=== PATIENT | male | born 1965 | race Caucasian/White ===

== ENCOUNTER 2016-03-27 12:46 | Inpatient (IN) | payer OTHER ==
[~2016-03-27] VITALS: Ht 185.4 cm; Wt 198.0 kg
[2016-03-27 16:34] VITALS: BP 102/60; PULSE 116; RESP 20
[2016-03-27] MEDS ORDERED: NACL 0.9% 3 ML SYG IV SCH (17:30)
[2016-03-27] MEDS ORDERED: DOCUSATE SODIUM 100 MG CAP PO PRN (17:30)
[2016-03-27] MEDS ORDERED: VANCOMYCIN IV PER PHARMACY XX SCH (17:30)
[2016-03-27] MEDS ORDERED: ONDANSETRON 4 MG INJ IV PRN (17:30)
[2016-03-27] MEDS ORDERED: ACETAMINOPHEN 325 MG TAB PO PRN (17:30)
[2016-03-27 18:03] VITALS: Ht 185.4 cm; Wt 198.0 kg
[2016-03-27] MEDS: morphine 2 MG INJ IV PRN ×2 (18:37→21:48)
[2016-03-27 20:10] VITALS: BP 91/50; RESP 18
[2016-03-27] MEDS: VANCOMYCIN 1.5 GM in SOD CHLORIDE 0.9% 250 ML IVPB SCH (21:47)
--- NOTE | 2016-03-27 23:09 | HP ---
DATE OF ADMISSION: 03/27/2016 CHIEF COMPLAINT: Left scrotal pain. HISTORY OF PRESENT ILLNESS: The patient is a 50-year-old male with history of morbid obesity, histo ry of recent buttock cellulitis status post IV antibiotics. The patient presents with left scrotal pain. He had presented to [facility], was transferred for insurance purposes. At [facility]', patient was noted to have elevated white count and did complain of left scrotal pain, which he continues to complain of right now. He denies any other medical history except for his morbid obes ity. He has no other complaints at this time. PAST MEDICAL HISTORY: Morbid obesity and history of buttock cellulitis recently in February 2016. PAST SURGICAL HISTORY: Denies. HOME MEDICATIONS: 1. Water pill. 2. Vitamins for his kidneys. ALLERGIES: NO KNOWN DRUG ALLERGIES. FAMILY HISTORY: Diabetes in his father. SOCIAL HISTORY: Denies any alcohol, tobacco, or drug abuse. REVIEW OF SYSTEMS: A 12-point review of systems negative except that as in HPI. PHYSICAL EXAMINATION: VITAL SIGNS: Temperature is 98.3, pulse 116, respiratory rate 20, blood pressure 102/60, saturation 94% on room air. GENERAL: No acute distress, alert, and oriented. HEENT: Normocephalic, atraumatic. LUNGS: Clear to auscultation. CARDIOVASCULAR: Regular rate and rhythm. ABDOMEN: Nondistended, nontender, soft, obese. EXTREMITIES: No clubbing, cyanosis, or edema. GENITOURINARY: Left scrotal tenderness to palpation. Some mild erythema, swelling. LABORATORIES: From [facility]: White count 16.4, hemoglobin 11.9, platelets are 260. Christine ashley: Sodium is 135, potassium is 5.4, chloride 97, CO2 is 20, BUN is 31, creatinine 1.76, glucos e 152. ASSESSMENT AND PLAN: 1. Left scrotal cellulitis with leukocytosis. Will treat with vancomycin IV. 2. Morbid obesity. Advised lifestyle changes. 3. Sepsis secondary to cellulitis, treated with vancomycin IV. The patient meets sepsis criteria w ith tachycardia with a pulse of 116 and leukocytosis. Once again, will treat with vancomycin IV. 4. Hyperglycemia. Will check A1c. 5. Prophylaxis: Sequential compression devices. Dictated By: SANJAY MEZA MD BS/NTS Conf#: [id number] [facility]#: [id number]
[2016-03-28] MEDS: morphine 2 MG INJ IV PRN ×7 (00:55→21:58)
[2016-03-28 06:22] LABS: BASOPHILS % 0.3 % (0.0-2.0); EOSINOPHILS # 0.2 10^3/ul (0.0-0.5); EOSINOPHILS % 1.4 % (0.0-7.0); HEMATOCRIT 33.9 % (42.0-52.0); HEMOGLOBIN 11.2 g/dl (14.0-18.0); LYMPHOCYTES # 1.2 10^3/ul (0.8-2.9); LYMPHOCYTES % 8.4 % (15.0-51.0); MEAN CORPUSCULAR HEMOGLOBIN 29.6 pg (29.0-33.0); MEAN CORPUSCULAR HGB CONC 32.9 g/dl (32.0-37.0); MEAN PLATELET VOLUME 8.3 fl (7.4-10.4); MONOCYTE # 1.4 10^3/ul (0.3-0.9); MONOCYTES % 9.4 % (0.0-11.0); NEUTROPHIL # 11.8 10^3/ul (1.6-7.5); NEUTROPHILS % 80.5 % (39.0-77.0); PLATELET COUNT 252 10^3/UL (140-440); RED BLOOD COUNT 3.77 10^6/ul (4.70-6.10); RED CELL DISTRIBUTION WIDTH 16.3 % (11.5-14.5); UNCORRECTED WBC 14.7 10^3/ul (4.8-10.8); WHITE BLOOD COUNT 14.7 10^3/ul (4.8-10.8)
[2016-03-28 06:38] LABS: CONDITION 1; LH ANALYZER COMMENTS 1
[2016-03-28 07:45] LABS: POTASSIUM 5.1 mmol/L (3.5-5.1)
[2016-03-28 07:47] LABS: CREATININE 2.04 mg/dl (0.61-1.24)
[2016-03-28 07:48] LABS: CALCIUM 8.4 mg/dl (8.4-10.2); PHOSPHORUS 4.5 mg/dl (2.5-4.9)
[2016-03-28 07:49] LABS: CHOL/HDL RATIO 4.5 RATIO; MAGNESIUM 1.7 mg/dl (1.7-2.5)
[2016-03-28 08:05] VITALS: BP 101/68; RESP 20
[2016-03-28 08:23] LABS: T3 UPTAKE 42.7 % (23.5-40.5)
[2016-03-28] MEDS ORDERED: INFLUENZA VIRUS VACCINE 0.5 ML SYG IM* ONE (09:00)
[2016-03-28] MEDS: VANCOMYCIN 1.5 GM in SOD CHLORIDE 0.9% 250 ML IVPB SCH (10:09)
--- NOTE | 2016-03-28 12:02 | CONS ---
Date/Time of Note Date/Time of Note DATE: 03/28/16 TIME: 11:59 Assessment/Plan Assessment/Plan Additional Assessment/Plan 50 yo Male with 1. Left scrotal cellulitis with leukocytosis. 2. Morbid obesity. 3. Sepsis secondary to cellulitis 4. Hyperglycemia. 5. MERISSA vs CKD Consultation Date/Type/Reason Admit Date/Time Mar 27, 2016 at 16:17 Date of Consultation: Mar 28, 2016 Type of Consultation: Nephrology Reason for Consultation MERISSA Referring Provider: SANJAY MEZA of Present Illness 50-year-old male with history of morbid obesity, history of recent buttock cellulitis status post IV antibiotics. The patient presents with left scrotal pain and found to have cellulitis. Patient was transferred from [facility] to [facility] and is under care of Hospitalist. He denies any other medical history except for his morbid obesity. He has no other complaints at this time. Nephrology consulted for Elevated BUN/Cr, MERISSA. Social History Smoking Status: Never smoker Exam/Review of Systems Vital Signs Vitals Vital Signs Date Time Temp Pulse Resp B/P Pulse Ox O2 Delivery O2 Flow Rate FiO2 03/28/16 08:05 98.5 114 20 101/68 94 03/27/16 16:34 Room Air Intake and Output 03/27/16 03/27/16 03/28/16 15:00 23:00 07:00 Intake Total 1310 ml Balance 1310 ml Results Result Diagram: 03/28/16 0449 03/28/16 0449 Results 24 hrs Laboratory Tests Test 03/28/16 04:49 Anion Gap 19 H Basophils # 0.0 Basophils % 0.3 Blood Morphology Comment Blood Urea Nitrogen 34 H Calcium Level 8.4 Carbon Dioxide Level 21 Chloride Level 103 Cholesterol Level 135 Cholesterol/HDL Ratio 4.5 Creatinine 2.04 H Eosinophils # 0.2 Eosinophils % 1.4 Free Thyroxine Index 2.22 Glucose Level 111 HDL Cholesterol 30 Hematocrit 33.9 L Hemoglobin 11.2 L Hemoglobin A1c 6.4 H LDL Cholesterol, Calculated 92 Lymphocytes # 1.2 Lymphocytes % 8.4 L Magnesium Level 1.7 Mean Corpuscular Hemoglobin 29.6 Mean Corpuscular Hemoglobin Concent 32.9 Mean Corpuscular Volume 90.0 Mean Platelet Volume 8.3 Monocytes # 1.4 H Monocytes % 9.4 Neutrophils # 11.8 H Neutrophils % 80.5 H Nucleated Red Blood Cells # 0.0 Nucleated Red Blood Cells % 0.0 Phosphorus Level 4.5 Platelet Count 252 Potassium Level 5.1 Red Blood Count 3.77 L Red Cell Distribution Width 16.3 H Sodium Level 138 Thyroxine (T4) 5.2 L Triglycerides Level 65 Triiodothyronine (T3) Uptake 42.7 H White Blood Count 14.7 H Medications Medications Current Medications Ondansetron HCl (Zofran Inj) 4 mg Q6H PRN IV NAUSEA AND/OR VOMITING; Start at 17:30 Acetaminophen (Tylenol Tab) 650 mg Q6H PRN PO PAIN LEVEL 1-3 OR FEVER; Start at 17:30 Acetaminophen/ Hydrocodone Bitart ([place] (5/325)) 1 tab Q6H PRN PO MODERATE PAIN LEVEL 4-6; Start 03/27/16 at 17:30 Morphine Sulfate (morphine) 4 mg Q3 PRN IV SEVERE PAIN LEVEL 7-10 Last administered on 03/28/16 11:54; Admin Dose 4 MG; Start 03/27/16 at 17:30 Docusate Sodium 100 mg 100 mg Q12H PRN PO CONSTIPATION; Start 03/27/16 at 17:30 Vancomycin HCl 1.5 gm/Sodium Chloride 250 ml @ 83.333 mls/ hr Q12H IVPB Last administered on 03/28/16 10:09; Admin Dose 83.333 MLS/HR; Start 03/27/16 at 22: 00 Sodium Chloride (1/2 NS) 1,000 ml @ 100 mls/hr Q10H IV ; Start 03/28/16 at 10: 30 Miscellaneous Information (*Rx Drug Level Order Reminder*) VANCO TROUGH @ 2, 100 ON... ONCE ONCE XX ; Start 03/28/16 at 21:00; Stop 03/28/16 at 21:01 RAISA COSBY MD Mar 28, 2016 12:02
[2016-03-28 14:24] LABS: ADD UMIC YES; URINE BILIRUBIN (Dip) NEGATIVE (NEGATIVE); URINE BLOOD (Dip) NEGATIVE (NEGATIVE); URINE COLOR LT. YELLOW (YELLOW); URINE GLUCOSE (Dip) NEGATIVE (NEGATIVE); URINE KETONES (Dip) NEGATIVE (NEGATIVE); URINE LEUKOCYTE ESTERASE (Dip) NEGATIVE (NEGATIVE); URINE NITRITE (Dip) NEGATIVE (NEGATIVE); URINE TOTAL PROTEIN (Dip) 1+ (NEGATIVE); URINE UROBILINOGEN (Dip) 0.2 E.U./dL (0.1-1.0)
[2016-03-28 14:46] LABS: BACTERIA,URINE FEW; URINE RBCS NONE SEEN /HPF (0)
[2016-03-28] MEDS: SOD CHLORIDE 0.45% 1,000 ML IV SCH ×2 (15:31→20:30)
--- NOTE | 2016-03-28 16:06 | PN ---
Date/Time of Note Date/Time of Note DATE: 03/28/16 TIME: 16:03 Assessment/Plan VTE Prophylaxis VTE Prophylaxis Intervention: SCD's Lines/Catheters [facility] [place] Urinary Cath still in place: No Assessment/Plan Chief Complaint/Hosp Course 1. Left scrotal cellulitis with leukocytosis -Will treat with vancomycin IV -ID consult with Dr. Jimenez 2. Morbid obesity. Advise lifestyle changes. 3. Sepsis secondary to #1 -Continue Vancomycin IV. 4. Hyperglycemia-resolved -A1c is 6.4 5. Prophylaxis: Sequential compression devices. Problems: Subjective 24 Hr Interval Summary Genitourinary: other (scrotal pain ) Exam/Review of Systems Vital Signs Vitals Vital Signs Date Time Temp Pulse Resp B/P Pulse Ox O2 Delivery O2 Flow Rate FiO2 03/28/16 08:05 98.5 114 20 101/68 94 03/27/16 16:34 Room Air Intake and Output 03/27/16 03/27/16 03/28/16 15:00 23:00 07:00 Intake Total 1310 ml Balance 1310 ml Exam Constitutional: alert, oriented Respiratory: clear to auscultation Cardiovascular: regular rate and rhythm Gastrointestinal: soft, No distended Musculoskeletal: nl extremities to inspection Results Result Diagram: 03/28/16 0449 03/28/169 Results 24 hrs Laboratory Tests Test 03/28/16 04:49 03/28/16 13:05 Anion Gap 19 H Basophils # 0.0 Basophils % 0.3 Blood Morphology Comment Blood Urea Nitrogen 34 H Calcium Level 8.4 Carbon Dioxide Level 21 Chloride Level 103 Cholesterol Level 135 Cholesterol/HDL Ratio 4.5 Creatinine 2.04 H Eosinophils # 0.2 Eosinophils % 1.4 Free Thyroxine Index 2.22 Glucose Level 111 HDL Cholesterol 30 Hematocrit 33.9 L Hemoglobin 11.2 L Hemoglobin A1c 6.4 H LDL Cholesterol, Calculated 92 Lymphocytes # 1.2 Lymphocytes % 8.4 L Magnesium Level 1.7 Mean Corpuscular Hemoglobin 29.6 Mean Corpuscular Hemoglobin Concent 32.9 Mean Corpuscular Volume 90.0 Mean Platelet Volume 8.3 Monocytes # 1.4 H Monocytes % 9.4 Neutrophils # 11.8 H Neutrophils % 80.5 H Nucleated Red Blood Cells # 0.0 Nucleated Red Blood Cells % 0.0 Phosphorus Level 4.5 Platelet Count 252 Potassium Level 5.1 Red Blood Count 3.77 L Red Cell Distribution Width 16.3 H Sodium Level 138 Thyroxine (T4) 5.2 L Triglycerides Level 65 Triiodothyronine (T3) Uptake 42.7 H White Blood Count 14.7 H Urine Amorphous Urates FEW Urine Bacteria FEW Urine Bilirubin NEGATIVE Urine Clarity CLEAR Urine Coarse Granular Casts RARE Urine Color LT. YELLOW Urine Epithelial Cells FEW Urine Glucose NEGATIVE Urine Hemoglobin NEGATIVE Urine Ketones NEGATIVE Urine Leukocyte Esterase NEGATIVE Urine Microscopic RBC NONE SEEN Urine Microscopic WBC 0-2 Urine Nitrite NEGATIVE Urine Random Creatinine 108.45 Urine Random Sodium < 13 L Urine Specific [place] 1.020 Urine Total Protein 1+ H Urine Urobilinogen 0.2 E.U./dL Urine pH 5.0 Medications Medications Current Medications Ondansetron HCl (Zofran Inj) 4 mg Q6H PRN IV NAUSEA AND/OR VOMITING; Start at 17:30 Acetaminophen (Tylenol Tab) 650 mg Q6H PRN PO PAIN LEVEL 1-3 OR FEVER; Start at 17:30 Acetaminophen/ Hydrocodone Bitart ([place] (5/325)) 1 tab Q6H PRN PO MODERATE PAIN LEVEL 4-6; Start 03/27/16 at 17:30 Morphine Sulfate (morphine) 4 mg Q3 PRN IV SEVERE PAIN LEVEL 7-10 Last administered on 03/28/16 15:30; Admin Dose 4 MG; Start 03/27/16 at 17:30 Docusate Sodium 100 mg 100 mg Q12H PRN PO CONSTIPATION; Start 03/27/16 at 17:30 Vancomycin HCl 1.5 gm/Sodium Chloride 250 ml @ 83.333 mls/ hr Q12H IVPB Last administered on 03/28/16 10:09; Admin Dose 83.333 MLS/HR; Start 03/27/16 at 22: 00 Sodium Chloride (1/2 NS) 1,000 ml @ 100 mls/hr Q10H IV Last administered on 15:31; Admin Dose 100 MLS/HR; Start 03/28/16 at 10:30 Miscellaneous Information (*Rx Drug Level Order Reminder*) VANCO TROUGH @ 2, 100 ON... ONCE ONCE XX ; Start 03/28/16 at 21:00; Stop 03/28/16 at 21:01 SANJAY MEZA Mar 28, 2016 16:06
[2016-03-28] MEDS: LEVOFLOXACIN 750MG/D5W (PMX) 150 ML IVPB SCH (16:36)
--- NOTE | 2016-03-28 16:57 | RADRPT ---
PROCEDURE: Renal US. CLINICAL INDICATION: Acute kidney injury. TECHNIQUE: Multiple sonographic images of the kidneys and urinary bladder were obtained. The imag es were reviewed on a PACS workstation. COMPARISON: No prior studies are available for comparison. FINDINGS: The right kidney measures 16.5 cm. The left kidney measures 10.6 cm. The right kidney is larger than the left kidney. There is no renal mass. There is no hydronephrosis. There are nonobstructing calculi in the mid right kidney measuring up to 1.2 cm. There is no left r enal calculus. Renal parenchymal thickness and echogenicity is normal bilaterally. The perirenal regions are normal with no fluid collection or mass. The urinary bladder is empty. IMPRESSION: 1. Right kidney larger than left kidney. 2. Nonobstructing calculi in the mid right kidney measuring up to 1.2 cm. 3. Empty urinary bladder. 4. Otherwise unremarkable study. RPTAT: QQ .Hernan Dooley MD, MD Date Time Electronically viewed and signed by .Hernan Dooley MD, on 03/28/2016 16:57 .R/
--- NOTE | 2016-03-28 17:08 | CONS ---
DATE OF ADMISSION: 03/27/2016 DATE OF CONSULTATION: 03/28/2016 TYPE OF CONSULTATION: Infectious Disease. REASON FOR CONSULTATION: Antibiotic management. HISTORY OF PRESENT ILLNESS: Jose Oropeza is a 50-year-old morbidly obese white male [facility] of 4 days' duration. His problems include: 1. Morbid obesity. 2. History of recent buttock cellulitis, status post IV antibiotics. Patient presents with left scrotal pain. On admission at [place] where he was transferred from, his white count was 16.4, hemoglobin 11.9, platelets 260,000. BUN and creatinine 31/1.76. PAST MEDICAL HISTORY: Operations as outlined. FAMILY HISTORY: Noncontributory. SOCIAL HISTORY: He does not smoke, drink or abuse drugs. ALLERGIES: NONE TO PENICILLIN, SULFA OR FOODS. MEDICATIONS: Per chart. REVIEW OF SYSTEMS: As per HPI. PHYSICAL EXAMINATION: GENERAL: The patient is a morbidly obese, pleasant white male, alert, responsive, oriented x3, in n o acute distress. VITAL SIGNS: Stable. He is afebrile. SKIN: Without generalized rash. HEENT: Within normal limits. NECK: Supple. LYMPH NODES: None palpable. CHEST: Decreased breath sounds at the bases. HEART: Without murmur or gallop. ABDOMEN: Soft. There is a large pannus present. EXTREMITIES: Without cyanosis, clubbing, or edema. RECTAL/GENITAL: Exam is deferred. RECTAL: Deferred. Left scrotal ____ is tender to palpation. He has some mild erythema. IMPRESSION AND PLAN: The patient presents now with left scrotal cellulitis and probable orchitis. He was seen by Dr. Christian Lay. White count is 14.7, H and H 11.2 and 33.9, platelet count 252,00 0. BUN and creatinine 34/2.04, so he has some renal insufficiency as well. The patient is as noted on vancomycin. Levaquin was added to his regimen, which is fine. We will continue him on this reg imen. I will dictate my findings to the hospitalist. Dictated By: KARRIE BOOTH MD, JD/MISAEL Conf#: [id number] DID#: [id number]
[2016-03-28 19:30] VITALS: BP 103/67; RESP 20
[2016-03-29] MEDS: morphine 2 MG INJ IV PRN ×7 (01:29→22:01)
[2016-03-29] MEDS: SOD CHLORIDE 0.45% 1,000 ML IV SCH ×3 (05:12→16:30)
[2016-03-29 06:29] LABS: POTASSIUM 5.3 mmol/L (3.5-5.1)
[2016-03-29 06:32] LABS: CREATININE 2.2 mg/dl (0.61-1.24)
[2016-03-29 06:33] LABS: BASOPHILS % 0.3 % (0.0-2.0); CALCIUM 8.5 mg/dl (8.4-10.2); EOSINOPHILS # 0.2 10^3/ul (0.0-0.5); EOSINOPHILS % 1.7 % (0.0-7.0); HEMATOCRIT 32.2 % (42.0-52.0); HEMOGLOBIN 10.7 g/dl (14.0-18.0); LYMPHOCYTES # 0.9 10^3/ul (0.8-2.9); LYMPHOCYTES % 7.9 % (15.0-51.0); MAGNESIUM 1.8 mg/dl (1.7-2.5); MEAN CORPUSCULAR HEMOGLOBIN 30.1 pg (29.0-33.0); MEAN CORPUSCULAR HGB CONC 33.4 g/dl (32.0-37.0); MEAN CORPUSCULAR VOLUME 90.3 fl (82.0-101.0); MEAN PLATELET VOLUME 8.2 fl (7.4-10.4); MONOCYTE # 1.1 10^3/ul (0.3-0.9); MONOCYTES % 9.1 % (0.0-11.0); NEUTROPHIL # 9.6 10^3/ul (1.6-7.5); PLATELET COUNT 232 10^3/UL (140-440); RED BLOOD COUNT 3.57 10^6/ul (4.70-6.10); RED CELL DISTRIBUTION WIDTH 15.7 % (11.5-14.5); UNCORRECTED WBC 11.9 10^3/ul (4.8-10.8); WHITE BLOOD COUNT 11.9 10^3/ul (4.8-10.8)
[2016-03-29 06:43] LABS: CONDITION 1; LH ANALYZER COMMENTS 1
[2016-03-29 07:15] VITALS: BP 108/65; RESP 18
[2016-03-29] MEDS ORDERED: VANCOMYCIN 1.5 GM in SOD CHLORIDE 0.9% 250 ML IVPB SCH (14:00)
--- NOTE | 2016-03-29 14:06 | RADRPT ---
PROCEDURE: XR Chest. CLINICAL INDICATION: Shortness of breath. TECHNIQUE: Single frontal view. COMPARISON: None. FINDINGS: The lungs are clear. The heart is enlarged. There is no pleural effusion. There is no pneumothorax. IMPRESSION: 1. Cardiomegaly. 2. Clear lungs. RPTAT: QQ .Hernan Doloey MD, MD Date Time Electronically viewed and signed by .Hernan Dooley MD, MD on 03/29/2016 14:06 .R/
--- NOTE | 2016-03-29 15:24 | PN ---
DATE: 03/29/2016 SUBJECTIVE: Patient is alert, feels better. Looks comfortable, no fevers. He is on IV vancomycin, Levaquin. MICROBIOLOGY: There is no microbiology. Urinalysis on admission was negative. DIAGNOSTICS: Renal ultrasound revealed nonobstructive calculi in the mid right kidney, right kidney larger than left, empty urinary bladder. PHYSICAL EXAMINATION: GENERAL: This is a morbidly obese, middle-aged white man who is alert, in no distress. HEENT: Head atraumatic, normocephalic. Sclerae anicteric. Buccal mucosa pink. NECK: Obese. CHEST: Rise symmetrical. Breath sounds clear, diminished to bases. HEART: S1, S2. ABDOMEN: Obese with significant pannus. Bowel tones hypoactive. EXTREMITIES: Without cyanosis. SKIN: With significant pannus and significant scrotal edema. ASSESSMENT: 1. Scrotal cellulitis. 2. Morbid obesity. 3. Renal failure, acute on possibly chronic. PLAN: The patient is improving on current regimen. We will continue him on current antibiotics, mo nitor vancomycin levels, monitor renal function. Keep scrotum elevated. Consider scrotal ultrasoun d and send urine cultures. Dictated By: WILFRED LUU ICT BUSINESS ANALYST for KARRIE HADDAD/MISAEL Conf#: [id number] DID#: [id number]
--- NOTE | 2016-03-29 16:57 | RADRPT ---
PROCEDURE: US Scrotum. CLINICAL INDICATION: Scrotal pain and swelling. Cellulitis. TECHNIQUE: Multiple sonographic images of the scrotal region were obtained utilizing a linear arra y transducer with grayscale and color-flow and pulsed Doppler imaging. The images were reviewed on a high-resolution PACS workstation. COMPARISON: No prior studies are available for comparison. FINDINGS: The right testis measures 3.3 x 1.9 x 2.3 cm. The left testis measures 4.7 x 3.3 x 3.9 cm. The right testis has a normal appearance. The left testis is diffusely heterogeneous and enlarged. There is diffuse skin thickening overlying the left testis. The right epididymis is normal. The left epididymis is not visualized. There is normal flow to both testes demonstrated with color Doppler and pulsed Doppler sonography. There is no hydrocele. There is no varicocele. IMPRESSION: 1. Normal right testis. 2. Diffusely heterogeneous and enlarged left testis with marked overlying skin thickening. This ma y indicate orchitis or testicular mass. Clinical correlation and follow-up advised. RPTAT: QQ .Hernan Dooley MD, MD Date Time Electronically viewed and signed by .Hernan Dooley MD, MD on 03/29/2016 16:57 .R/
--- NOTE | 2016-03-29 17:04 | PN ---
Date/Time of Note Date/Time of Note DATE: 03/29/16 TIME: 16:55 Assessment/Plan VTE Prophylaxis VTE Prophylaxis Intervention: SCD's Lines/Catheters IV Catheter Type (from Nrsg): Peripheral IV Urinary Cath still in place: No Assessment/Plan Chief Complaint/Hosp Course 1. Left scrotal cellulitis with leukocytosis -DC Vanco and start Ancef and continue Levaquin -ID consult with Dr. Jimenez appreciated 2. Morbid obesity. Advise lifestyle changes. 3. Sepsis secondary to #1-Improving -Continue Abx. 4. Hyperglycemia-resolved -A1c is 6.4 5. Prophylaxis: Sequential compression devices. Problems: Subjective 24 Hr Interval Summary Constitutional: no complaints Exam/Review of Systems Vital Signs Vitals Vital Signs Date Time Temp Pulse Resp B/P Pulse Ox O2 Delivery O2 Flow Rate FiO2 03/29/16 07:15 98.8 117 18 108/65 96 03/27/16 16:34 Room Air Intake and Output 03/28/16 03/28/16 03/29/16 15:00 23:00 07:00 Intake Total 1880 ml 720 ml Output Total 1 ml Balance 1880 ml 719 ml Exam Constitutional: alert, oriented Respiratory: clear to auscultation Cardiovascular: regular rate and rhythm Gastrointestinal: soft, No distended Musculoskeletal: nl extremities to inspection Results Result Diagram: 03/29/16 0519 03/29/16 0519 Results 24 hrs Laboratory Tests Test 03/28/16 21:00 03/29/16 05:19 Vancomycin Level Trough 22.4 *H Anion Gap 18 H Basophils # 0.0 Basophils % 0.3 Blood Morphology Comment Blood Urea Nitrogen 42 H Calcium Level 8.5 Carbon Dioxide Level 22 Chloride Level 100 Creatinine 2.20 H Eosinophils # 0.2 Eosinophils % 1.7 Glucose Level 89 Hematocrit 32.2 L Hemoglobin 10.7 L Lymphocytes # 0.9 Lymphocytes % 7.9 L Magnesium Level 1.8 Mean Corpuscular Hemoglobin 30.1 Mean Corpuscular Hemoglobin Concent 33.4 Mean Corpuscular Volume 90.3 Mean Platelet Volume 8.2 Monocytes # 1.1 H Monocytes % 9.1 Neutrophils # 9.6 H Neutrophils % 81.0 H Nucleated Red Blood Cells # 0.0 Nucleated Red Blood Cells % 0.0 Platelet Count 232 Potassium Level 5.3 H Red Blood Count 3.57 L Red Cell Distribution Width 15.7 H Sodium Level 135 White Blood Count 11.9 H Medications Medications Current Medications Ondansetron HCl (Zofran Inj) 4 mg Q6H PRN IV NAUSEA AND/OR VOMITING; Start at 17:30 Acetaminophen (Tylenol Tab) 650 mg Q6H PRN PO PAIN LEVEL 1-3 OR FEVER; Start at 17:30 Acetaminophen/ Hydrocodone Bitart ([place] (5/325)) 1 tab Q6H PRN PO MODERATE PAIN LEVEL 4-6; Start 03/27/16 at 17:30 Morphine Sulfate (morphine) 4 mg Q3 PRN IV SEVERE PAIN LEVEL 7-10 Last administered on 03/29/16 15:31; Admin Dose 4 MG; Start 03/27/16 at 17:30 Docusate Sodium 100 mg 100 mg Q12H PRN PO CONSTIPATION; Start 03/27/16 at 17:30 Sodium Chloride 1,000 ml @ 100 mls/hr Q10H IV Last administered on 03/29/16 05:12; Admin Dose 100 MLS/HR; Start 03/28/16 at 10:30 Levofloxacin/ Dextrose 150 ml @ 100 mls/hr Q24H IVPB Last administered on 03/28 16:36; Admin Dose 100 MLS/HR; Start 03/28/16 at 17:00 Vancomycin HCl/ Sodium Chloride (Vancocin/NS) 250 ml @ 83.333 mls/ hr Q24H IVPB Last administered on 03/29/16 15:34; Admin Dose 83.333 MLS/HR; Start at 14:00 SANJAY MEZA Mar 29, 2016 17:04
[2016-03-29] MEDS: LEVOFLOXACIN 750MG/D5W (PMX) 150 ML IVPB SCH (18:01)
[2016-03-29 21:00] VITALS: BP 106/66; RESP 21
[2016-03-29] MEDS: CEFAZOLIN 2 GM/50 ML (PMX) 50 ML IVPB SCH (22:06)
[2016-03-29] MEDS: HYDROCODONE/APAP (5/325) TAB PO PRN (23:26)
[2016-03-30] MEDS: morphine 2 MG INJ IV PRN ×7 (01:12→22:41)
[2016-03-30] MEDS: SOD CHLORIDE 0.45% 1,000 ML IV SCH ×5 (01:20→22:30)
[2016-03-30] MEDS: CEFAZOLIN 2 GM/50 ML (PMX) 50 ML IVPB SCH (05:35)
[2016-03-30 06:54] LABS: BASOPHILS % 0.4 % (0.0-2.0); EOSINOPHILS # 0.2 10^3/ul (0.0-0.5); HEMATOCRIT 29.9 % (42.0-52.0); LYMPHOCYTES % 9.2 % (15.0-51.0); MEAN CORPUSCULAR HGB CONC 33.4 g/dl (32.0-37.0); MEAN CORPUSCULAR VOLUME 89.7 fl (82.0-101.0); MEAN PLATELET VOLUME 8.6 fl (7.4-10.4); MONOCYTE # 1.1 10^3/ul (0.3-0.9); NEUTROPHIL # 8.7 10^3/ul (1.6-7.5); NEUTROPHILS % 78.4 % (39.0-77.0); PLATELET COUNT 230 10^3/UL (140-440); RED BLOOD COUNT 3.34 10^6/ul (4.70-6.10); RED CELL DISTRIBUTION WIDTH 15.6 % (11.5-14.5); UNCORRECTED WBC 11.1 10^3/ul (4.8-10.8); WHITE BLOOD COUNT 11.1 10^3/ul (4.8-10.8)
[2016-03-30 07:01] LABS: CREATININE 2.44 mg/dl (0.61-1.24)
[2016-03-30 07:02] LABS: CALCIUM 8.7 mg/dl (8.4-10.2)
[2016-03-30 07:07] LABS: CONDITION 1; LH ANALYZER COMMENTS 1
[2016-03-30 08:07] VITALS: BP 103/57; RESP 16
[2016-03-30 10:27] LABS: IRON 20 ug/dl (35-150)
[2016-03-30 10:36] LABS: TOTAL IRON BINDING CAPACITY 240 ug/dl (241-421)
--- NOTE | 2016-03-30 13:36 | CONS ---
Date/Time of Note Date/Time of Note DATE: 03/30/16 TIME: 13:32 Consult Date/Type/Reason Admit Date/Time Mar 27, 2016 at 16:17 Initial Consult Date 03/28/16 Type of Consultation: ID Ordering Provider: SANJAY MEZA Subjective awake, looks comfortable, no fevers, nad Objective Vital Signs Date Time Temp Pulse Resp B/P Pulse Ox O2 Delivery O2 Flow Rate FiO2 03/30/16 08:07 98.4 123 16 103/57 94 03/27/16 16:34 Room Air Intake and Output 03/29/16 03/29/16 03/30/16 15:00 23:00 07:00 Intake Total 2020 ml 3000 ml Output Total 5 ml Balance 2020 ml 2995 ml Results/Medications Result Diagram: 03/30/16 0515 03/30/16 0515 Results 24 hrs Laboratory Tests Test 03/30/16 05:15 Anion Gap 21 H Basophils # 0.0 Basophils % 0.4 Blood Morphology Comment Blood Urea Nitrogen 47 H Calcium Level 8.7 Carbon Dioxide Level 19 L Chloride Level 101 Creatinine 2.44 H Eosinophils # 0.2 Eosinophils % 2.0 Glucose Level 82 Hematocrit 29.9 L Hemoglobin 10.0 L Iron Level 20 L Lymphocytes # 1.0 Lymphocytes % 9.2 L Mean Corpuscular Hemoglobin 30.0 Mean Corpuscular Hemoglobin Concent 33.4 Mean Corpuscular Volume 89.7 Mean Platelet Volume 8.6 Monocytes # 1.1 H Monocytes % 10.0 Neutrophils # 8.7 H Neutrophils % 78.4 H Nucleated Red Blood Cells # 0.0 Nucleated Red Blood Cells % 0.0 Percent Iron Saturation 8 L Platelet Count 230 Potassium Level 5.0 Red Blood Count 3.34 L Red Cell Distribution Width 15.6 H Sodium Level 136 Total Iron Binding Capacity 240 L White Blood Count 11.1 H Medications Current Medications Ondansetron HCl (Zofran Inj) 4 mg Q6H PRN IV NAUSEA AND/OR VOMITING; Start at 17:30 Acetaminophen (Tylenol Tab) 650 mg Q6H PRN PO PAIN LEVEL 1-3 OR FEVER; Start at 17:30 Acetaminophen/ Hydrocodone Bitart ([place] (5/325)) 1 tab Q6H PRN PO MODERATE PAIN LEVEL 4-6 Last administered on 03/29/16t 23:26; Admin Dose 1 TAB; Start at 17:30 Morphine Sulfate (morphine) 4 mg Q3 PRN IV SEVERE PAIN LEVEL 7-10 Last administered on 03/30/16 13:02; Admin Dose 4 MG; Start 03/27/16 at 17:30 Docusate Sodium 100 mg 100 mg Q12H PRN PO CONSTIPATION; Start 03/27/16 at 17:30 Sodium Chloride 1,000 ml @ 100 mls/hr Q10H IV Last administered on 03/30/16 01:20; Admin Dose 100 MLS/HR; Start 03/28/16 at 10:30 Levofloxacin/ Dextrose 150 ml @ 100 mls/hr Q24H IVPB Last administered on 03/29 18:01; Admin Dose 100 MLS/HR; Start 03/28/16 at 17:00 Cefazolin Sodium/ Dextrose (Ancef 2 Gm/50 ml (Pmx)) 50 ml @ 100 mls/hr Q8 IVPB Last administered on 03/30/16 05:35; Admin Dose 100 MLS/HR; Start 03/29/16 at 22:00 Assessment/Plan Chief Complaint/Hosp Course PHYSICAL EXAMINATION: GENERAL: This is a morbidly obese, middle-aged white man who is alert, in no distress. HEENT: Head atraumatic, normocephalic. Sclerae anicteric. Buccal mucosa pink. NECK: Obese. CHEST: Rise symmetrical. Breath sounds clear, diminished to bases. HEART: S1, S2. ABDOMEN: Obese with significant pannus. Bowel tones hypoactive. EXTREMITIES: Without cyanosis. SKIN: With significant pannus and significant scrotal edema. ASSESSMENT: 1. Scrotal cellulitis, ? orchitis or testicular mass per US 2. Morbid obesity. 3. Renal failure, acute on possibly chronic. PLAN: Remains stable, change Vanco to Zyvox, continue Levaquin==> will adjust for renal f-n, continue scrotal elevation, nephrology rec-s, consider urology eval. FRAN staff Problems: WILFRED LUU NP Mar 30, 2016 13:36
--- NOTE | 2016-03-30 14:19 | PN ---
Date/Time of Note Date/Time of Note DATE: 03/30/16 TIME: 14:17 Assessment/Plan VTE Prophylaxis VTE Prophylaxis Intervention: SCD's Lines/Catheters IV Catheter Type (from Nrs): Peripheral IV Urinary Cath still in place: No Assessment/Plan Chief Complaint/Hosp Course 1. Left scrotal cellulitis with leukocytosis -Cont Ancef and Levaquin -ID consult with Dr. Jimenez appreciated -US Scrotum suggests orchitis or testicular mass, Urology consult with Dr Mccormick 2. Morbid obesity. Advise lifestyle changes. 3. Sepsis secondary to #1-Improving -Continue Abx. 4. Hyperglycemia-resolved -A1c is 6.4 5. Prophylaxis: Sequential compression devices. Problems: Subjective 24 Hr Interval Summary Constitutional: no complaints Exam/Review of Systems Vital Signs Vitals Vital Signs Date Time Temp Pulse Resp B/P Pulse Ox O2 Delivery O2 Flow Rate FiO2 03/30/16 08:07 98.4 123 16 103/57 94 03/27/16 16:34 Room Air Intake and Output 03/29/16 03/29/16 03/30/16 15:00 23:00 07:00 Intake Total 2020 ml 3000 ml Output Total 5 ml Balance 2020 ml 2995 ml Exam Constitutional: alert, oriented Respiratory: clear to auscultation Cardiovascular: regular rate and rhythm Gastrointestinal: soft, No distended Musculoskeletal: nl extremities to inspection Results Result Diagram: 03/30/16 0515 03/30/16 0515 Results 24 hrs Laboratory Tests Test 03/30/16 05:15 Anion Gap 21 H Basophils # 0.0 Basophils % 0.4 Blood Morphology Comment Blood Urea Nitrogen 47 H Calcium Level 8.7 Carbon Dioxide Level 19 L Chloride Level 101 Creatinine 2.44 H Eosinophils # 0.2 Eosinophils % 2.0 Glucose Level 82 Hematocrit 29.9 L Hemoglobin 10.0 L Iron Level 20 L Lymphocytes # 1.0 Lymphocytes % 9.2 L Mean Corpuscular Hemoglobin 30.0 Mean Corpuscular Hemoglobin Concent 33.4 Mean Corpuscular Volume 89.7 Mean Platelet Volume 8.6 Monocytes # 1.1 H Monocytes % 10.0 Neutrophils # 8.7 H Neutrophils % 78.4 H Nucleated Red Blood Cells # 0.0 Nucleated Red Blood Cells % 0.0 Percent Iron Saturation 8 L Platelet Count 230 Potassium Level 5.0 Red Blood Count 3.34 L Red Cell Distribution Width 15.6 H Sodium Level 136 Total Iron Binding Capacity 240 L White Blood Count 11.1 H Medications Medications Current Medications Ondansetron HCl (Zofran Inj) 4 mg Q6H PRN IV NAUSEA AND/OR VOMITING; Start at 17:30 Acetaminophen (Tylenol Tab) 650 mg Q6H PRN PO PAIN LEVEL 1-3 OR FEVER; Start at 17:30 Acetaminophen/ Hydrocodone Bitart ([place] (5/325)) 1 tab Q6H PRN PO MODERATE PAIN LEVEL 4-6 Last administered on 03/29/16 23:26; Admin Dose 1 TAB; Start at 17:30 Morphine Sulfate (morphine) 4 mg Q3 PRN IV SEVERE PAIN LEVEL 7-10 Last administered on 03/30/16 13:02; Admin Dose 4 MG; Start 03/27/16 at 17:30 Docusate Sodium 100 mg 100 mg Q12H PRN PO CONSTIPATION; Start 03/27/16 at 17:30 Sodium Chloride (1/2 NS) 1,000 ml @ 100 mls/hr Q10H IV Last administered on 01:20; Admin Dose 100 MLS/HR; Start 03/28/16 at 10:30 Linezolid (Zyvox) 600 mg BID PO ; Start 03/30/16 at 21:00 Levofloxacin (Levaquin) 250 mg DAILY@06 PO ; Start 03/31/16 at 06:00 SANJAY MEZA Mar 30, 2016 14:19
[2016-03-30 16:40] LABS: COLLECTION PERIOD 24 hrs
[2016-03-30 17:23] LABS: COLLECTION PERIOD 24 hrs; SCRET 2.44 mg/dl (0.61-1.24)
[2016-03-30 19:45] VITALS: BP 117/63; RESP 22
[2016-03-30] MEDS: ZYVOX 600 MG TAB PO SCH (20:46)
--- NOTE | 2016-03-30 21:31 | CONS ---
Date/Time of Note Date/Time of Note DATE: 03/30/16 TIME: 21:24 Assessment/Plan Assessment/Plan Problems: (1) Anemia Status: Chronic (2) Stromal tumor of left testicle Comment: Spoke to Dr Winston, he;d call Consult (3) CKD (chronic kidney disease) stage 3, GFR 30-59 ml/min Status: Chronic Comment: etiology could be nephrosclerosis (4) Obesity Status: Chronic Comment: nay need dietary counseling Additional Assessment/Plan await 2h hr urine study, may benefit from PO Iron replacement Consultation Date/Type/Reason Admit Date/Time Mar 27, 2016 at 16:17 Initial Consult Date 03/28/16 Type of Consultation: renal Referring Provider: SANJAY MEZA 24 HR Interval Summary Constitutional: improved Exam/Review of Systems Vital Signs Vitals Vital Signs Date Time Temp Pulse Resp B/P Pulse Ox O2 Delivery O2 Flow Rate FiO2 03/30/16 19:45 98.1 113 22 117/63 95 03/27/16 16:34 Room Air Intake and Output 03/29/16 03/29/16 03/30/16 15:00 23:00 07:00 Intake Total 2020 ml 3000 ml Output Total 5 ml Balance 2020 ml 2995 ml Exam Constitutional: alert, obese, oriented Head: normocephalic Eyes: PERRL, nl conjunctiva ENMT: nl external ears & nose Neck: supple Respiratory: clear to auscultation Cardiovascular: regular rate and rhythm Gastrointestinal: distended Genitourinary - Male: other (massive scrotal swelling. Scrotal US Shows lt testicle enlarged) Results Result Diagram: 03/30/16 0515 03/30/16 0515 Results 24 hrs Laboratory Tests Test 03/30/16 05:15 03/30/16 14:10 Anion Gap 21 H Basophils # 0.0 Basophils % 0.4 Blood Morphology Comment Blood Urea Nitrogen 47 H Calcium Level 8.7 Carbon Dioxide Level 19 L Chloride Level 101 Creatinine 2.44 H Eosinophils # 0.2 Eosinophils % 2.0 Glucose Level 82 Hematocrit 29.9 L Hemoglobin 10.0 L Iron Level 20 L Lymphocytes # 1.0 Lymphocytes % 9.2 L Mean Corpuscular Hemoglobin 30.0 Mean Corpuscular Hemoglobin Concent 33.4 Mean Corpuscular Volume 89.7 Mean Platelet Volume 8.6 Monocytes # 1.1 H Monocytes % 10.0 Neutrophils # 8.7 H Neutrophils % 78.4 H Nucleated Red Blood Cells # 0.0 Nucleated Red Blood Cells % 0.0 Percent Iron Saturation 8 L Platelet Count 230 Potassium Level 5.0 Red Blood Count 3.34 L Red Cell Distribution Width 15.6 H Sodium Level 136 Total Iron Binding Capacity 240 L White Blood Count 11.1 H Creatinine Clearance 31.4 L Urine Collection Duration 24 Urine Creatinine Timed 24 Urine Random Creatinine 92.06 Urine Total Protein 24 Hour Urine Total Volume (Protein) Urine Total Volume 24 Hours 1200 Medications Medications Current Medications Ondansetron HCl (Zofran Inj) 4 mg Q6H PRN IV NAUSEA AND/OR VOMITING; Start at 17:30 Acetaminophen (Tylenol Tab) 650 mg Q6H PRN PO PAIN LEVEL 1-3 OR FEVER; Start at 17:30 Acetaminophen/ Hydrocodone Bitart ([place] (5/325)) 1 tab Q6H PRN PO MODERATE PAIN LEVEL 4-6 Last administered on 03/29/16 23:26; Admin Dose 1 TAB; Start at 17:30 Morphine Sulfate (morphine) 4 mg Q3 PRN IV SEVERE PAIN LEVEL 7-10 Last administered on 03/30/16 19:47; Admin Dose 4 MG; Start 03/27/16 at 17:30 Docusate Sodium 100 mg 100 mg Q12H PRN PO CONSTIPATION; Start 03/27/16 at 17:30 Sodium Chloride (1/2 NS) 1,000 ml @ 100 mls/hr Q10H IV Last administered on 20:51; Admin Dose 100 MLS/HR; Start 03/28/16 at 10:30 Linezolid (Zyvox) 600 mg BID PO Last administered on 03/30/16 20:46; Admin Dose 600 MG; Start 03/30/16 at 21:00 Levofloxacin (Levaquin) 250 mg DAILY@06 PO ; Start 03/31/16 at 06:00 LASHON GUZMAN MD Mar 30, 2016 21:31
--- NOTE | 2016-03-30 22:54 | CONS ---
DATE OF ADMISSION: 03/27/2016 DATE OF CONSULTATION: 03/30/2016 UROLOGY CONSULTATION REQUESTING PHYSICIAN: Amber Borja MD Dear Dr. Borja, Thank you for asking me to see this patient in urological consultation. HISTORY OF PRESENT ILLNESS: This is a 50-year-old male who is morbidly obese. He weighs 198 kilogr ams who presented to [facility] complaining of scrotal pain, and he was found also to hav e an abscess in the perineal area which did open by itself and drained. Also, he was having pain in the left side of the scrotum, and, because of his insurance, he was transferred to [facility] for further care. The patient denies any prior medical problem except the fact that he has morbid obesity, and he states that he has lost about 30 pounds. He was avoiding fast food and junk food and watching what he eats. He stated that he also did not want to consider gastric bypass surgery; he wanted to do it on his own. HOME MEDICATIONS: Include: 1. Diuretics. 2. vitamins. PRIOR SURGICAL HISTORY: None. SOCIAL HISTORY: The patient does not smoke, does not drink alcohol, and there is no history of drug abuse. He denies having any hypertension or diabetes. No heart or lung disease. FAMILY HISTORY: His father has a history of diabetes. PRESENT MEDICATIONS: Include: 1. Levaquin. 2. Linezolid. 3. He is on IV fluid. 4. Zofran. 5. Tylenol. 6. [place] for the pain. 7. Morphine sulfate p.r.n. for the pain. 8. Colace 100 mg every 12 hours p.r.n. for constipation. PHYSICAL EXAMINATION: GENERAL: Reveals a 50-year-old male, very obese. He weighs 198 kilograms. He is 73 inches tall. VITAL SIGNS: Temperature is 98.4, the pulse is 123, respirations 16, blood pressure 103/57. ABDOMEN: Very obese, impossible to feel anything except that the abdomen is very large and folding over the pubic area. The pubic area is also folding over the scrotal area, so I had the nurse try t o lift up his abdomen and lift the pubic area to be able to see the scrotal area. EXTERNAL GENITALIA: His penis cannot be seen even when one tried to retract as much as possible of the skin. The penis is completely covered by the pubic fat. Scrotum: The right side is normal. T he left side has signs of epididymitis, and there is also some loculation on the top. EXTREMITIES: There are no varicose veins, but again an obese patient. LABORATORY DATA: His last CBC shows a white count of 11.1, hemoglobin 10.0, hematocrit 29.9. The B UN is 47, creatinine 2.44. Electrolytes: Sodium 136, potassium 5.0, chloride 101, CO2 of 19, and t he blood sugar on admission was 111 and now it is 82. The patient did have a scrotal ultrasound and that was reported as normal right testis and diffusely heterogeneous and enlarged left testis with marked overlying skin thickening. This may indicate or chitis or testicular mass. Clinical correlation and followup advised. Clinically, the patient does have acute left epididymitis and maybe a scrotal abscess from that because there is some loculation . IMPRESSION: Left acute epididymitis with possible scrotal abscess. RECOMMENDATION: At the present is to definitely try to keep the scrotum elevated on a towel all the time, if possible, but this patient regardless what we do he has to be in bed almost in a sitting p osition to be able to breathe well and that makes the abdomen and the pubic area over the scrotum an d cause it more to squeeze it down. The plan is to continue the antibiotic and maybe hopefully that the area would open up and drain by itself, and, it does not, then I will have to drain it and aspi rate the pus out of it and culture that. Hopefully, it would not be much and then we will have to p ack the wound and abscess area and allow it to heal on its own. I will follow his urological proble m with you. I do thank you for allowing me to help in his care. Dictated By: KAROL PACHECO/MISAEL Conf#: [id number] DID#: [id number] CC: AMBER BORJA MD;*End*
[2016-03-31] MEDS: morphine 2 MG INJ IV PRN ×7 (01:51→21:28)
[2016-03-31 05:58] LABS: BASOPHIL # 0.1 10^3/ul (0.0-0.1); BASOPHILS % 0.4 % (0.0-2.0); EOSINOPHILS # 0.2 10^3/ul (0.0-0.5); EOSINOPHILS % 1.9 % (0.0-7.0); HEMATOCRIT 29.7 % (42.0-52.0); LYMPHOCYTES # 1.1 10^3/ul (0.8-2.9); LYMPHOCYTES % 8.9 % (15.0-51.0); MEAN CORPUSCULAR HEMOGLOBIN 29.7 pg (29.0-33.0); MEAN CORPUSCULAR HGB CONC 33.6 g/dl (32.0-37.0); MEAN CORPUSCULAR VOLUME 88.5 fl (82.0-101.0); MEAN PLATELET VOLUME 8.5 fl (7.4-10.4); MONOCYTES % 8.8 % (0.0-11.0); NEUTROPHIL # 9.5 10^3/ul (1.6-7.5); PLATELET COUNT 251 10^3/UL (140-440); RED BLOOD COUNT 3.36 10^6/ul (4.70-6.10); RED CELL DISTRIBUTION WIDTH 15.5 % (11.5-14.5); UNCORRECTED WBC 11.8 10^3/ul (4.8-10.8); WHITE BLOOD COUNT 11.8 10^3/ul (4.8-10.8)
[2016-03-31 06:05] LABS: POTASSIUM 4.7 mmol/L (3.5-5.1)
[2016-03-31 06:07] LABS: CREATININE 2.28 mg/dl (0.61-1.24)
[2016-03-31 06:08] LABS: CALCIUM 8.7 mg/dl (8.4-10.2); MAGNESIUM 2.1 mg/dl (1.7-2.5)
[2016-03-31] MEDS: LEVOFLOXACIN 250 MG TAB PO SCH (06:08)
[2016-03-31 06:47] LABS: CONDITION 1; LH ANALYZER COMMENTS 1
[2016-03-31] MEDS: SOD CHLORIDE 0.45% 1,000 ML IV SCH ×3 (07:01→18:32)
--- NOTE | 2016-03-31 08:00 | CONS ---
Date/Time of Note Date/Time of Note DATE: 03/31/16 TIME: 08:00 Assessment/Plan Assessment/Plan Additional Assessment/Plan (1) Anemia/LEIGH Status: Chronic (2) Scrotal Epidydimitis with possible abscess. Comment: Consult reviewed. (3) CKD (chronic kidney disease) stage 3, GFR 30-59 ml/min Status: Chronic Comment: etiology could be nephrosclerosis (4) Obesity Status: Chronic Comment: nay need dietary counseling Additional Assessment/Plan 24 hr Cr Cl >30, ? CKD stage III Vs MERISSA, Renal function stable, Electroytes OK. Urine Na <15, Pre-Renal component, Cont Gentle IVFs IRon Deficiency, NO IV Iron Rx, Oral Iron OK. Appreciate Consultation. Consultation Date/Type/Reason Admit Date/Time Mar 27, 2016 at 16:17 Initial Consult Date 03/28/16 Type of Consultation: renal Reason for Consultation MERISSA Vs CKD Referring Provider: SANJAY MEZA 24 HR Interval Summary Free Text/Dictation NO new complaints, Finished 24 hour urine collection Constitutional: No requiring O2 Exam/Review of Systems Vital Signs Vitals Vital Signs Date Time Temp Pulse Resp B/P Pulse Ox O2 Delivery O2 Flow Rate FiO2 03/30/16 19:45 98.1 113 22 117/63 95 03/27/16 16:34 Room Air Intake and Output 03/30/16 03/30/16 03/31/16 15:00 23:00 07:00 Intake Total 1320 ml 1600 ml Balance 1320 ml 1600 ml Exam Constitutional: alert, No distress ENMT: mucosa pink and moist Neck: No jvd Respiratory: clear to auscultation, No diminished breath sounds, No labored breathing Cardiovascular: edema, regular rate and rhythm Gastrointestinal: non-tender, soft, No rebound or guarding Neurological: [employer] INVESTMENT ANALYST II-XII intact, nl mental status, No lethargic Skin: No diaphoresis Results Result Diagram: 03/31/16 0501 03/31/16 0501 Results 24 hrs Laboratory Tests Test 03/30/16 14:10 03/31/16 05:01 Creatinine Clearance 31.4 L Urine Collection Duration 24 Urine Creatinine Timed 24 Urine Random Creatinine 92.06 Urine Total Protein 24 Hour Urine Total Volume (Protein) Urine Total Volume 24 Hours 1200 Anion Gap 19 H Basophils # 0.1 Basophils % 0.4 Blood Morphology Comment Blood Urea Nitrogen 45 H Calcium Level 8.7 Carbon Dioxide Level 18 L Chloride Level 104 Creatinine 2.28 H Eosinophils # 0.2 Eosinophils % 1.9 Glucose Level 93 Hematocrit 29.7 L Hemoglobin 10.0 L Lymphocytes # 1.1 Lymphocytes % 8.9 L Magnesium Level 2.1 Mean Corpuscular Hemoglobin 29.7 Mean Corpuscular Hemoglobin Concent 33.6 Mean Corpuscular Volume 88.5 Mean Platelet Volume 8.5 Monocytes # 1.0 H Monocytes % 8.8 Neutrophils # 9.5 H Neutrophils % 80.0 H Nucleated Red Blood Cells # 0.0 Nucleated Red Blood Cells % 0.0 Platelet Count 251 Potassium Level 4.7 Red Blood Count 3.36 L Red Cell Distribution Width 15.5 H Sodium Level 136 White Blood Count 11.8 H Medications Medications Current Medications Ondansetron HCl (Zofran Inj) 4 mg Q6H PRN IV NAUSEA AND/OR VOMITING; Start at 17:30 Acetaminophen (Tylenol Tab) 650 mg Q6H PRN PO PAIN LEVEL 1-3 OR FEVER; Start at 17:30 Acetaminophen/ Hydrocodone Bitart ([place] (5/325)) 1 tab Q6H PRN PO MODERATE PAIN LEVEL 4-6 Last administered on 03/29/16 23:26; Admin Dose 1 TAB; Start at 17:30 Morphine Sulfate (morphine) 4 mg Q3 PRN IV SEVERE PAIN LEVEL 7-10 Last administered on 03/31/16 04:54; Admin Dose 4 MG; Start 03/27/16 at 17:30 Docusate Sodium 100 mg 100 mg Q12H PRN PO CONSTIPATION; Start 03/27/16 at 17:30 Sodium Chloride (1/2 NS) 1,000 ml @ 100 mls/hr Q10H IV Last administered on 07:01; Admin Dose 100 MLS/HR; Start 03/28/16 at 10:30 Linezolid (Zyvox) 600 mg BID PO Last administered on 03/30/16 20:46; Admin Dose 600 MG; Start 03/30/16 at 21:00 Levofloxacin (Levaquin) 250 mg DAILY@06 PO Last administered on 03/31/16 06:08 ; Admin Dose 250 MG; Start 03/31/16 at 06:00 RAISA COSBY MD Mar 31, 2016 08:00
[2016-03-31 08:01] VITALS: BP 99/75; RESP 22
[2016-03-31] MEDS: ZYVOX 600 MG TAB PO SCH ×2 (08:33→20:43)
[2016-03-31] MEDS ORDERED: FERROUS SULFATE (EC) 325 MG TAB PO SCH (11:00)
[2016-03-31] MEDS: FERROUS SULFATE (EC) 325 MG TAB PO SCH ×2 (12:10→20:43)
--- NOTE | 2016-03-31 13:28 | PN ---
DATE: SUBJECTIVE: No acute changed. The patient is alert, lying comfortably in bed, no fevers. Vital signs stable. He was started on Zyvox yesterday for concern of worsening renal function. Levaquin dosed p er renal function to 260 mg p.o. daily. WBC 11.8, neutrophils 80, 45, creatinine 2.28. PHYSICAL EXAMINATION: This is a morbidly obese middle aged white man who is lying comfortably in bed . mucosa pink. Neck is obese. Chest rise symmetrical, breath sounds diminished at the base. He art S1 S2. Abdomen: Soft, bowel sounds present. Extremities: Without cyanosis. ASSESSMENT 1. Left acute epididymitis with possible scrotal abscess. 2. Morbid obesity. 3. Acute renal failure. 4. Diabetes. PLAN: Patient remains stable, he is being seen by multiple consultants. Urology is also on case. We will continue him on current antibiotics, keep scrotum elevated. Dictated By: WILFRED LUU BALANCE RECESSER for KARRIE HADDAD/MISAEL Conf#: [id number] DID#: [id number]
--- NOTE | 2016-03-31 16:10 | PN ---
Date/Time of Note Date/Time of Note DATE: 03/31/16 TIME: 16:09 Assessment/Plan VTE Prophylaxis VTE Prophylaxis Intervention: SCD's Lines/Catheters IV Catheter Type (from Nrs): Peripheral IV Urinary Cath still in place: No Assessment/Plan Chief Complaint/Hosp Course 1. Left scrotal cellulitis with leukocytosis -Cont Ancef and Levaquin -ID consult with Dr. Jimenez appreciated -US Scrotum suggests orchitis or testicular mass, Urology consult with Dr Mccormick appreciated and pt may have a Scrotal abscess, cont Abx for now but may need drainage 2. Morbid obesity. Advise lifestyle changes. 3. Sepsis secondary to #1-Improving -Continue Abx. 4. Hyperglycemia-resolved -A1c is 6.4 5. Prophylaxis: Sequential compression devices. Problems: Subjective 24 Hr Interval Summary Constitutional: no complaints Exam/Review of Systems Vital Signs Vitals Vital Signs Date Time Temp Pulse Resp B/P Pulse Ox O2 Delivery O2 Flow Rate FiO2 03/31/16 08:01 97.7 112 22 99/75 95 03/27/16 16:34 Room Air Intake and Output 03/30/16 03/30/16 03/31/16 15:00 23:00 07:00 Intake Total 1320 ml 1600 ml Balance 1320 ml 1600 ml Exam Constitutional: alert, oriented Respiratory: clear to auscultation Cardiovascular: regular rate and rhythm Gastrointestinal: soft, No distended Musculoskeletal: nl extremities to inspection Results Result Diagram: 03/31/16 0501 03/31/16 0501 Results 24 hrs Laboratory Tests Test 03/31/16 05:01 Anion Gap 19 H Basophils # 0.1 Basophils % 0.4 Blood Morphology Comment Blood Urea Nitrogen 45 H Calcium Level 8.7 Carbon Dioxide Level 18 L Chloride Level 104 Creatinine 2.28 H Eosinophils # 0.2 Eosinophils % 1.9 Glucose Level 93 Hematocrit 29.7 L Hemoglobin 10.0 L Lymphocytes # 1.1 Lymphocytes % 8.9 L Magnesium Level 2.1 Mean Corpuscular Hemoglobin 29.7 Mean Corpuscular Hemoglobin Concent 33.6 Mean Corpuscular Volume 88.5 Mean Platelet Volume 8.5 Monocytes # 1.0 H Monocytes % 8.8 Neutrophils # 9.5 H Neutrophils % 80.0 H Nucleated Red Blood Cells # 0.0 Nucleated Red Blood Cells % 0.0 Platelet Count 251 Potassium Level 4.7 Red Blood Count 3.36 L Red Cell Distribution Width 15.5 H Sodium Level 136 White Blood Count 11.8 H Medications Medications Current Medications Ondansetron HCl (Zofran Inj) 4 mg Q6H PRN IV NAUSEA AND/OR VOMITING; Start at 17:30 Acetaminophen (Tylenol Tab) 650 mg Q6H PRN PO PAIN LEVEL 1-3 OR FEVER; Start at 17:30 Acetaminophen/ Hydrocodone Bitart ([place] (5/325)) 1 tab Q6H PRN PO MODERATE PAIN LEVEL 4-6 Last administered on 03/29/16 23:26; Admin Dose 1 TAB; Start at 17:30 Morphine Sulfate (morphine) 4 mg Q3 PRN IV SEVERE PAIN LEVEL 7-10 Last administered on 03/31/16 15:11; Admin Dose 4 MG; Start 03/27/16 at 17:30 Docusate Sodium 100 mg 100 mg Q12H PRN PO CONSTIPATION; Start 03/27/16 at 17:30 Sodium Chloride (1/2 NS) 1,000 ml @ 100 mls/hr Q10H IV Last administered on 07:01; Admin Dose 100 MLS/HR; Start 03/28/16 at 10:30 Linezolid (Zyvox) 600 mg BID PO Last administered on 03/31/16 08:33; Admin Dose 600 MG; Start 03/30/16 at 21:00 Levofloxacin (Levaquin) 250 mg DAILY@06 PO Last administered on 03/31/16 06:08 ; Admin Dose 250 MG; Start 03/31/16 at 06:00 Ferrous Sulfate (Ferrous Sulfate (Ec)) 325 mg BID PO Last administered on 12:10; Admin Dose 325 MG; Start 03/31/16 at 12:00 SANJAY MEZA Mar 31, 2016 16:10
--- NOTE | 2016-03-31 17:43 | CONS ---
Date/Time of Note Date/Time of Note DATE: 03/31/16 TIME: 17:39 Assessment/Plan Assessment/Plan Problems: (1) Stromal tumor of left testicle Status: Acute Comment: Will ask Dr Stevens to get Eval Pt getting IV AB Rx for ?orchitis (2) Anemia Status: Chronic (3) Obesity Status: Chronic (4) CKD (chronic kidney disease) stage 3, GFR 30-59 ml/min Status: Chronic Comment: stable, await 24 Hr Creat clearance Consultation Date/Type/Reason Admit Date/Time Mar 27, 2016 at 16:17 Initial Consult Date 03/28/16 This note is for the visit on 03/29/16 at 1000AM Type of Consultation: renal Referring Provider: SANJAY MEZA 24 HR Interval Summary Constitutional: improved Exam/Review of Systems Vital Signs Vitals Vital Signs Date Time Temp Pulse Resp B/P Pulse Ox O2 Delivery O2 Flow Rate FiO2 03/31/16 08:01 97.7 112 22 99/75 95 03/27/16 16:34 Room Air Intake and Output 03/30/16 03/30/16 03/31/16 15:00 23:00 07:00 Intake Total 1320 ml 1600 ml Balance 1320 ml 1600 ml Exam Constitutional: alert, obese, oriented Psych: depression Eyes: PERRL, nl conjunctiva ENMT: nl external ears & nose Neck: supple Respiratory: clear to auscultation Gastrointestinal: distended, soft Genitourinary - Male: other (massive scrotal edema, ?mass) Additional Comments Renal function stable Results Result Diagram: 03/31/16 0501 03/31/16 0501 Results 24 hrs Laboratory Tests Test 03/31/16 05:01 Anion Gap 19 H Basophils # 0.1 Basophils % 0.4 Blood Morphology Comment Blood Urea Nitrogen 45 H Calcium Level 8.7 Carbon Dioxide Level 18 L Chloride Level 104 Creatinine 2.28 H Eosinophils # 0.2 Eosinophils % 1.9 Glucose Level 93 Hematocrit 29.7 L Hemoglobin 10.0 L Lymphocytes # 1.1 Lymphocytes % 8.9 L Magnesium Level 2.1 Mean Corpuscular Hemoglobin 29.7 Mean Corpuscular Hemoglobin Concent 33.6 Mean Corpuscular Volume 88.5 Mean Platelet Volume 8.5 Monocytes # 1.0 H Monocytes % 8.8 Neutrophils # 9.5 H Neutrophils % 80.0 H Nucleated Red Blood Cells # 0.0 Nucleated Red Blood Cells % 0.0 Platelet Count 251 Potassium Level 4.7 Red Blood Count 3.36 L Red Cell Distribution Width 15.5 H Sodium Level 136 White Blood Count 11.8 H Medications Medications Current Medications Ondansetron HCl (Zofran Inj) 4 mg Q6H PRN IV NAUSEA AND/OR VOMITING; Start at 17:30 Acetaminophen (Tylenol Tab) 650 mg Q6H PRN PO PAIN LEVEL 1-3 OR FEVER; Start at 17:30 Acetaminophen/ Hydrocodone Bitart ([place] (5/325)) 1 tab Q6H PRN PO MODERATE PAIN LEVEL 4-6 Last administered on 03/29/16 23:26; Admin Dose 1 TAB; Start at 17:30 Morphine Sulfate (morphine) 4 mg Q3 PRN IV SEVERE PAIN LEVEL 7-10 Last administered on 03/31/16 15:11; Admin Dose 4 MG; Start 03/27/16 at 17:30 Docusate Sodium 100 mg 100 mg Q12H PRN PO CONSTIPATION; Start 03/27/16 at 17:30 Sodium Chloride (1/2 NS) 1,000 ml @ 100 mls/hr Q10H IV Last administered on 07:01; Admin Dose 100 MLS/HR; Start 03/28/16 at 10:30 Linezolid (Zyvox) 600 mg BID PO Last administered on 03/31/16 08:33; Admin Dose 600 MG; Start 03/30/16 at 21:00 Levofloxacin (Levaquin) 250 mg DAILY@06 PO Last administered on 03/31/16 06:08 ; Admin Dose 250 MG; Start 03/31/16 at 06:00 Ferrous Sulfate (Ferrous Sulfate (Ec)) 325 mg BID PO Last administered on 12:10; Admin Dose 325 MG; Start 03/31/16 at 12:00 LASHON GUZMAN MD Mar 31, 2016 17:43
--- NOTE | 2016-03-31 19:02 | PN ---
DATE: 03/31/2016 SUBJECTIVE: Left acute epididymitis, possible abscess formation. OBJECTIVE: GENERAL: The patient is afebrile. Temperature is 97.7, pulse is 112, respirations 22, blood pressu re 99/75. ABDOMEN: Very obese and the abdomen is folding over the pubic area and the pubic area over the yon devonte area. GENITOURINARY: The left side of the scrotum has an area that is fluctuating and may have some pus i n it. I will try to locally aspirate and open it tomorrow. Hopefully, it will drain and then the w ound would be packed as needed, and we will do a culture on it. LABORATORY DATA: CBC shows a white count of 11.8, hemoglobin 10.0, hematocrit 29.7. BUN is 35, cre atinine 2.28. IMPRESSION: Acute left epididymitis and possible abscess formation. PLAN: To try to drain with a syringe and a little opening tomorrow and see if that would get the pu s out. Dictated By: KAROL PACHECO/MISAEL Conf#: [id number] DID#: [id number]
[2016-03-31 19:36] VITALS: BP 125/71; RESP 20
[2016-04-01] MEDS: morphine 2 MG INJ IV PRN ×3 (01:07→08:44)
[2016-04-01] MEDS: SOD CHLORIDE 0.45% 1,000 ML IV SCH ×2 (04:25→14:53)
[2016-04-01] MEDS: LEVOFLOXACIN 250 MG TAB PO SCH (06:12)
[2016-04-01 07:01] LABS: BASOPHILS % 0.3 % (0.0-2.0); EOSINOPHILS # 0.4 10^3/ul (0.0-0.5); EOSINOPHILS % 2.8 % (0.0-7.0); HEMATOCRIT 31.7 % (42.0-52.0); HEMOGLOBIN 10.4 g/dl (14.0-18.0); LYMPHOCYTES % 7.9 % (15.0-51.0); MEAN CORPUSCULAR HEMOGLOBIN 29.5 pg (29.0-33.0); MEAN CORPUSCULAR HGB CONC 32.9 g/dl (32.0-37.0); MEAN CORPUSCULAR VOLUME 89.6 fl (82.0-101.0); MEAN PLATELET VOLUME 8.5 fl (7.4-10.4); MONOCYTE # 1.1 10^3/ul (0.3-0.9); MONOCYTES % 8.6 % (0.0-11.0); NEUTROPHIL # 10.2 10^3/ul (1.6-7.5); NEUTROPHILS % 80.4 % (39.0-77.0); PLATELET COUNT 284 10^3/UL (140-440); RED BLOOD COUNT 3.53 10^6/ul (4.70-6.10); RED CELL DISTRIBUTION WIDTH 15.7 % (11.5-14.5); UNCORRECTED WBC 12.7 10^3/ul (4.8-10.8); WHITE BLOOD COUNT 12.7 10^3/ul (4.8-10.8)
[2016-04-01 07:06] LABS: CONDITION 1; LH ANALYZER COMMENTS 1
[2016-04-01 07:40] LABS: POTASSIUM 5.1 mmol/L (3.5-5.1)
[2016-04-01 07:42] LABS: CREATININE 1.94 mg/dl (0.61-1.24)
[2016-04-01 07:43] LABS: CALCIUM 8.7 mg/dl (8.4-10.2)
[2016-04-01 08:23] VITALS: BP 116/74; RESP 22
[2016-04-01] MEDS: ZYVOX 600 MG TAB PO SCH ×2 (09:30→21:08)
[2016-04-01] MEDS: FERROUS SULFATE (EC) 325 MG TAB PO SCH ×2 (09:30→21:08)
[2016-04-01] MEDS ORDERED: LIDOCAINE 1% (MPF) 30 ML INJ INJ PRN (11:50)
[2016-04-01] MEDS ORDERED: LIDOCAINE 1% (MDV) 20 ML INJ ONE (11:53)
[2016-04-01] MEDS ORDERED: LIDOCAINE 1% (MDV) 20 ML INJ SC ONE (12:00)
[2016-04-01] MEDS: morphine 4 MG/ML VIAL IV PRN ×4 (12:01→21:08)
--- NOTE | 2016-04-01 12:54 | PN ---
Date/Time of Note Date/Time of Note DATE: 04/01/16 TIME: 12:53 Assessment/Plan VTE Prophylaxis VTE Prophylaxis Intervention: SCD's Lines/Catheters IV Catheter Type (from Nrs): Peripheral IV Urinary Cath still in place: No Assessment/Plan Chief Complaint/Hosp Course 1. Left scrotal cellulitis with leukocytosis- WBC more elevated today -Cont Ancef and Levaquin -ID consult with Dr. Jimenez appreciated -US Scrotum suggests orchitis or testicular mass, Urology consult with Dr Mccormick appreciated and pt may have a Scrotal abscess, cont Abx for now but may need drainage 2. Morbid obesity. Advise lifestyle changes. 3. Sepsis secondary to #1-Improving -Continue Abx. 4. Hyperglycemia-resolved -A1c is 6.4 5. Prophylaxis: Sequential compression devices. Problems: Subjective 24 Hr Interval Summary Constitutional: no complaints Exam/Review of Systems Vital Signs Vitals Vital Signs Date Time Temp Pulse Resp B/P Pulse Ox O2 Delivery O2 Flow Rate FiO2 04/01/16 08:23 98.5 109 22 116/74 95 Intake and Output 03/31/16 03/31/16 04/01/16 15:00 23:00 07:00 Intake Total 2080 ml 2060 ml Balance 2080 ml 2060 ml Exam Constitutional: alert, oriented Respiratory: clear to auscultation Cardiovascular: regular rate and rhythm Gastrointestinal: soft, No distended Musculoskeletal: nl extremities to inspection Results Result Diagram: 04/01/16 0520 04/01/16 0520 Results 24 hrs Laboratory Tests Test 04/01/16 05:20 Anion Gap 21 H Basophils # 0.0 Basophils % 0.3 Blood Morphology Comment Blood Urea Nitrogen 39 H Calcium Level 8.7 Carbon Dioxide Level 16 L Chloride Level 106 Creatinine 1.94 H Eosinophils # 0.4 Eosinophils % 2.8 Glucose Level 95 Hematocrit 31.7 L Hemoglobin 10.4 L Lymphocytes # 1.0 Lymphocytes % 7.9 L Mean Corpuscular Hemoglobin 29.5 Mean Corpuscular Hemoglobin Concent 32.9 Mean Corpuscular Volume 89.6 Mean Platelet Volume 8.5 Monocytes # 1.1 H Monocytes % 8.6 Neutrophils # 10.2 H Neutrophils % 80.4 H Nucleated Red Blood Cells # 0.0 Nucleated Red Blood Cells % 0.0 Platelet Count 284 Potassium Level 5.1 Red Blood Count 3.53 L Red Cell Distribution Width 15.7 H Sodium Level 138 White Blood Count 12.7 H Medications Medications Current Medications Ondansetron HCl (Zofran Inj) 4 mg Q6H PRN IV NAUSEA AND/OR VOMITING; Start at 17:30 Acetaminophen (Tylenol Tab) 650 mg Q6H PRN PO PAIN LEVEL 1-3 OR FEVER; Start at 17:30 Acetaminophen/ Hydrocodone Bitart ([place] (5/325)) 1 tab Q6H PRN PO MODERATE PAIN LEVEL 4-6 Last administered on 03/29/16 23:26; Admin Dose 1 TAB; Start at 17:30 Docusate Sodium 100 mg 100 mg Q12H PRN PO CONSTIPATION; Start 03/27/16 at 17:30 Sodium Chloride (1/2 NS) 1,000 ml @ 100 mls/hr Q10H IV Last administered on 04:25; Admin Dose 100 MLS/HR; Start 03/28/16 at 10:30 Linezolid (Zyvox) 600 mg BID PO Last administered on 04/01/16 09:30; Admin Dose 600 MG; Start 03/30/16 at 21:00 Levofloxacin (Levaquin) 250 mg DAILY@06 PO Last administered on 04/01/16 06:12 ; Admin Dose 250 MG; Start 03/31/16 at 06:00 Ferrous Sulfate (Ferrous Sulfate (Ec)) 325 mg BID PO Last administered on 09:30; Admin Dose 325 MG; Start 03/31/16 at 12:00 Morphine Sulfate (morphine) 4 mg Q3H PRN IV SEVERE PAIN Last administered on 12:01; Admin Dose 4 MG; Start 04/01/16 at 12:00 SANJAY MEZA Apr 01, 2016 12:54
--- NOTE | 2016-04-01 16:59 | PN ---
DATE: 04/01/2016 SUBJECTIVE: Scrotal abscess and acute left epididymitis. The patient has been having pain in the l eft scrotal area. He is morbidly obese and he has been on an antibiotic and he also has drainage fr om the perirectal space where it is packed with iodoform. OBJECTIVE: VITAL SIGNS: His temperature today is 98.5. His pulse is 109. Respirations 22, blood pressure 116 /74. ABDOMEN: Morbidly obese as well as the pubic area. The scrotum on the left side has fluctuating ar ea that I did open and drain at bedside. I will dictate a note regarding that. LABORATORY DATA: CBC today shows a white count of 12.7, hemoglobin 10.4, hematocrit 31.7. The BUN is 39, creatinine 1.94. Electrolytes are normal. The urine culture no growth after 48 hours. IMPRESSION: Left scrotal abscess from epididymo-orchitis. PLAN: To do an incision and drainage of this area. Dictated By: KAROL PACHECO/MISAEL Conf#: [id number] DID#: [id number]
--- NOTE | 2016-04-01 17:09 | SP ---
DATE OF PROCEDURE: 04/01/2016 PREPROCEDURAL DIAGNOSES: Left scrotal abscess PROCEDURE: Incision and drainage of left scrotal abscess. FINDINGS: The patient did have a tremendous amount of sanguinopurulent material collected in that a madelaine. In fact, after I incised it and drained it, over 500 mL of sanguinopurulent and foul smelling fluid drained. TECHNIQUE: The patient was positioned in the supine position in his bed. The patient did hold his abdominal fold up, the nurse did hold the pubic fold up so to expose the left side of the scrotum. As mentioned before in prior dictation, the penis could not even be seen because it is completely co jeannie by the pubic fat. The patient weighs 198 kilograms. Then I painted the area of the scrotum a round where the penis is supposed to be, mainly the fluctuating area. Then I draped him with steril e towels. Then, I gave him 1% lidocaine injection for local anesthetic, then I used a 16 gauge need le and aspirated 10 mL of fluid from that fluctuating area for culture. Then, using a knife, I open ed it and as soon as I open it, the sanguinopurulent material started pouring and it never stopped, it kept on pouring and pouring out and it is foul smelling. Then we did get suction and we suctione d it from inside the scrotum and suctioned about 300 mL of sanguinopurulent material. In addition t o that, there was a lot of sanguinopurulent material that drained on the drapes and on the bed. I d id extend the incision a little bit more and as I put my finger into that, my whole finger goes deep into that cavity. After I suctioned it and got a lot of blood clots out of there, then I did use i odoform gauze and packed it with iodoform and then covered it with some 4 x 4s. The patient tolerat ed it well and he will need further packing and unpacking of the wound and maybe even debridement la ter on if we need to in the operating room. Dictated By: KAROL PACHECO/MISAEL Conf#: [id number] DID#: [id number]
--- NOTE | 2016-04-01 17:21 | CONS ---
Date/Time of Note Date/Time of Note DATE: 04/01/16 TIME: 17:18 Consult Date/Type/Reason Admit Date/Time Mar 27, 2016 at 16:17 Initial Consult Date 03/28/16 Type of Consultation: id Ordering Provider: SANJAY MEZA Subjective awake, looks comfortable, afebrile Objective Vital Signs Date Time Temp Pulse Resp B/P Pulse Ox O2 Delivery O2 Flow Rate FiO2 04/01/16 08:23 98.5 109 22 116/74 95 Intake and Output 03/31/16 03/31/16 04/01/16 15:00 23:00 07:00 Intake Total 2080 ml 2060 ml Balance 2080 ml 2060 ml Results/Medications Result Diagram: 04/01/16 0520 04/01/16 0520 Results 24 hrs Laboratory Tests Test 04/01/16 05:20 Anion Gap 21 H Basophils # 0.0 Basophils % 0.3 Blood Morphology Comment Blood Urea Nitrogen 39 H Calcium Level 8.7 Carbon Dioxide Level 16 L Chloride Level 106 Creatinine 1.94 H Eosinophils # 0.4 Eosinophils % 2.8 Glucose Level 95 Hematocrit 31.7 L Hemoglobin 10.4 L Lymphocytes # 1.0 Lymphocytes % 7.9 L Mean Corpuscular Hemoglobin 29.5 Mean Corpuscular Hemoglobin Concent 32.9 Mean Corpuscular Volume 89.6 Mean Platelet Volume 8.5 Monocytes # 1.1 H Monocytes % 8.6 Neutrophils # 10.2 H Neutrophils % 80.4 H Nucleated Red Blood Cells # 0.0 Nucleated Red Blood Cells % 0.0 Platelet Count 284 Potassium Level 5.1 Red Blood Count 3.53 L Red Cell Distribution Width 15.7 H Sodium Level 138 White Blood Count 12.7 H Medications Current Medications Ondansetron HCl (Zofran Inj) 4 mg Q6H PRN IV NAUSEA AND/OR VOMITING; Start at 17:30 Acetaminophen (Tylenol Tab) 650 mg Q6H PRN PO PAIN LEVEL 1-3 OR FEVER; Start at 17:30 Acetaminophen/ Hydrocodone Bitart ([place] (5/325)) 1 tab Q6H PRN PO MODERATE PAIN LEVEL 4-6 Last administered on 03/29/16t 23:26; Admin Dose 1 TAB; Start at 17:30 Docusate Sodium 100 mg 100 mg Q12H PRN PO CONSTIPATION; Start 03/27/16 at 17:30 Sodium Chloride (1/2 NS) 1,000 ml @ 100 mls/hr Q10H IV Last administered on 14:53; Admin Dose 100 MLS/HR; Start 03/28/16 at 10:30 Linezolid (Zyvox) 600 mg BID PO Last administered on 04/01/16 09:30; Admin Dose 600 MG; Start 03/30/16 at 21:00 Levofloxacin (Levaquin) 250 mg DAILY@06 PO Last administered on 04/01/16 06:12 ; Admin Dose 250 MG; Start 03/31/16 at 06:00 Ferrous Sulfate (Ferrous Sulfate (Ec)) 325 mg BID PO Last administered on 09:30; Admin Dose 325 MG; Start 03/31/16 at 12:00 Morphine Sulfate (morphine) 4 mg Q3H PRN IV SEVERE PAIN Last administered on 14:59; Admin Dose 4 MG; Start 04/01/16 at 12:00 Assessment/Plan Chief Complaint/Hosp Course Abx: Zyvox, Levaquin PHYSICAL EXAMINATION: GENERAL: This is a morbidly obese, middle-aged white man who is alert, in no distress. HEENT: Head atraumatic, normocephalic. Sclerae anicteric. Buccal mucosa pink. NECK: Obese. CHEST: Rise symmetrical. Breath sounds clear, diminished to bases. HEART: S1, S2. ABDOMEN: Obese with significant pannus. Bowel tones hypoactive. EXTREMITIES: Without cyanosis. SKIN: With significant pannus and significant scrotal edema, foul smell coming from scrotal wound. ASSESSMENT: 1. Scrotal abscess-s/p drainage==> 500 cc 2. Morbid obesity. 3. Renal failure, acute on possibly chronic. PLAN: Remains stable post-op, continue abx, wound care per urology, f/u cx [facility] staff Problems: WILFRED LUU NP Apr 01, 2016 17:21
--- NOTE | 2016-04-01 20:53 | CONS ---
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 Comment: Considering Bx Consultation Date/Type/Reason Admit Date/Time Mar 27, 2016 at 16:17 Initial Consult Date 03/28/16 This note is for the visit on 03/29/16 at 1000AM Type of Consultation: renal Referring Provider: SANJAY MEZA 24 HR Interval Summary Free Text/Dictation Pt seen by Exam/Review of Systems Vital Signs Vitals Vital Signs Date Time Temp Pulse Resp B/P Pulse Ox O2 Delivery O2 Flow Rate FiO2 04/01/16 08:23 98.5 109 22 116/74 95 Intake and Output 03/31/16 03/31/16 04/01/16 15:00 23:00 07:00 Intake Total 2080 ml 2060 ml Balance 2080 ml 2060 ml Exam Constitutional: alert, obese, oriented Head: normocephalic ENMT: nl external ears & nose Respiratory: clear to auscultation Cardiovascular: regular rate and rhythm Genitourinary - Male: other (lt testicular enlarged) Musculoskeletal: nl extremities to inspection Additional Comments Hct 32%, SCreat improved a bit Results Result Diagram: 04/01/16 0520 04/01/16 0520 Results 24 hrs Laboratory Tests Test 04/01/16 05:20 Anion Gap 21 H Basophils # 0.0 Basophils % 0.3 Blood Morphology Comment Blood Urea Nitrogen 39 H Calcium Level 8.7 Carbon Dioxide Level 16 L Chloride Level 106 Creatinine 1.94 H Eosinophils # 0.4 Eosinophils % 2.8 Glucose Level 95 Hematocrit 31.7 L Hemoglobin 10.4 L Lymphocytes # 1.0 Lymphocytes % 7.9 L Mean Corpuscular Hemoglobin 29.5 Mean Corpuscular Hemoglobin Concent 32.9 Mean Corpuscular Volume 89.6 Mean Platelet Volume 8.5 Monocytes # 1.1 H Monocytes % 8.6 Neutrophils # 10.2 H Neutrophils % 80.4 H Nucleated Red Blood Cells # 0.0 Nucleated Red Blood Cells % 0.0 Platelet Count 284 Potassium Level 5.1 Red Blood Count 3.53 L Red Cell Distribution Width 15.7 H Sodium Level 138 White Blood Count 12.7 H Medications Medications Current Medications Ondansetron HCl (Zofran Inj) 4 mg Q6H PRN IV NAUSEA AND/OR VOMITING; Start at 17:30 Acetaminophen (Tylenol Tab) 650 mg Q6H PRN PO PAIN LEVEL 1-3 OR FEVER; Start at 17:30 Acetaminophen/ Hydrocodone Bitart ([place] (5/325)) 1 tab Q6H PRN PO MODERATE PAIN LEVEL 4-6 Last administered on 03/29/16 23:26; Admin Dose 1 TAB; Start at 17:30 Docusate Sodium 100 mg 100 mg Q12H PRN PO CONSTIPATION; Start 03/27/16 at 17:30 Sodium Chloride (1/2 NS) 1,000 ml @ 100 mls/hr Q10H IV Last administered on 14:53; Admin Dose 100 MLS/HR; Start 03/28/16 at 10:30 Linezolid (Zyvox) 600 mg BID PO Last administered on 04/01/16 09:30; Admin Dose 600 MG; Start 03/30/16 at 21:00 Levofloxacin (Levaquin) 250 mg DAILY@06 PO Last administered on 04/01/16 06:12 ; Admin Dose 250 MG; Start 03/31/16 at 06:00 Ferrous Sulfate (Ferrous Sulfate (Ec)) 325 mg BID PO Last administered on 09:30; Admin Dose 325 MG; Start 03/31/16 at 12:00 Morphine Sulfate (morphine) 4 mg Q3H PRN IV SEVERE PAIN Last administered on 18:01; Admin Dose 4 MG; Start 04/01/16 at 12:00 LASHON GUZMAN MD Apr 01, 2016 20:53
[2016-04-01] MEDS: SOD FERRIC GLUC COMPLX 125 MG in SOD CHLORIDE 0.9% 100 ML IVPB SCH (22:26)
[2016-04-02] MEDS: morphine 4 MG/ML VIAL IV PRN ×7 (00:02→21:14)
[2016-04-02] MEDS: SOD CHLORIDE 0.45% 1,000 ML IV SCH ×3 (02:36→12:48)
[2016-04-02 05:44] LABS: BASOPHIL # 0.1 10^3/ul (0.0-0.1); BASOPHILS % 0.7 % (0.0-2.0); EOSINOPHILS # 0.5 10^3/ul (0.0-0.5); EOSINOPHILS % 4.4 % (0.0-7.0); HEMATOCRIT 32.5 % (42.0-52.0); HEMOGLOBIN 10.6 g/dl (14.0-18.0); LYMPHOCYTES # 1.6 10^3/ul (0.8-2.9); LYMPHOCYTES % 13.3 % (15.0-51.0); MEAN CORPUSCULAR HEMOGLOBIN 29.2 pg (29.0-33.0); MEAN CORPUSCULAR HGB CONC 32.4 g/dl (32.0-37.0); MEAN PLATELET VOLUME 7.9 fl (7.4-10.4); MONOCYTES % 7.8 % (0.0-11.0); NEUTROPHIL # 9.1 10^3/ul (1.6-7.5); NEUTROPHILS % 73.8 % (39.0-77.0); PLATELET COUNT 355 10^3/UL (140-440); RED BLOOD COUNT 3.62 10^6/ul (4.70-6.10); RED CELL DISTRIBUTION WIDTH 15.9 % (11.5-14.5); UNCORRECTED WBC 12.3 10^3/ul (4.8-10.8); WHITE BLOOD COUNT 12.3 10^3/ul (4.8-10.8)
[2016-04-02 05:54] LABS: CONDITION 1; LH ANALYZER COMMENTS 1
[2016-04-02 05:57] LABS: POTASSIUM 4.8 mmol/L (3.5-5.1)
[2016-04-02 05:59] LABS: CREATININE 1.83 mg/dl (0.61-1.24)
[2016-04-02 06:00] LABS: CALCIUM 9.1 mg/dl (8.4-10.2)
[2016-04-02] MEDS: LEVOFLOXACIN 250 MG TAB PO SCH (06:02)
[2016-04-02 07:32] VITALS: BP 117/67; RESP 22
[2016-04-02] MEDS: ZYVOX 600 MG TAB PO SCH ×2 (08:08→21:14)
[2016-04-02] MEDS: FERROUS SULFATE (EC) 325 MG TAB PO SCH ×2 (08:08→21:14)
--- NOTE | 2016-04-02 14:36 | CONS ---
Date/Time of Note Date/Time of Note DATE: 04/02/16 TIME: 14:34 Consult Date/Type/Reason Admit Date/Time Mar 27, 2016 at 16:17 Initial Consult Date 03/28/16 Type of Consultation: id Ordering Provider: SANJAY MEZA Subjective alert, lying comfortably in bed, no fevers Objective Vital Signs Date Time Temp Pulse Resp B/P Pulse Ox O2 Delivery O2 Flow Rate FiO2 04/02/16 07:32 97.4 81 22 117/67 94 Intake and Output 04/01/16 04/01/16 04/02/16 15:00 23:00 07:00 Intake Total 900 ml 1400 ml 1790 ml Balance 900 ml 1400 ml 1790 ml Results/Medications Result Diagram: 04/02/16 0457 04/02/16 0457 Results 24 hrs Laboratory Tests Test 04/02/16 04:57 Anion Gap 19 H Basophils # 0.1 Basophils % 0.7 Blood Morphology Comment Blood Urea Nitrogen 35 H Calcium Level 9.1 Carbon Dioxide Level 22 Chloride Level 105 Creatinine 1.83 H Eosinophils # 0.5 Eosinophils % 4.4 Glucose Level 109 Hematocrit 32.5 L Hemoglobin 10.6 L Lymphocytes # 1.6 Lymphocytes % 13.3 L Mean Corpuscular Hemoglobin 29.2 Mean Corpuscular Hemoglobin Concent 32.4 Mean Corpuscular Volume 90.0 Mean Platelet Volume 7.9 Monocytes # 1.0 H Monocytes % 7.8 Neutrophils # 9.1 H Neutrophils % 73.8 Nucleated Red Blood Cells # 0.0 Nucleated Red Blood Cells % 0.0 Platelet Count 355 # Potassium Level 4.8 Red Blood Count 3.62 L Red Cell Distribution Width 15.9 H Sodium Level 141 White Blood Count 12.3 H Medications Current Medications Ondansetron HCl (Zofran Inj) 4 mg Q6H PRN IV NAUSEA AND/OR VOMITING; Start at 17:30 Acetaminophen (Tylenol Tab) 650 mg Q6H PRN PO PAIN LEVEL 1-3 OR FEVER; Start at 17:30 Acetaminophen/ Hydrocodone Bitart ([place] (5/325)) 1 tab Q6H PRN PO MODERATE PAIN LEVEL 4-6 Last administered on 03/29/16t 23:26; Admin Dose 1 TAB; Start at 17:30 Docusate Sodium 100 mg 100 mg Q12H PRN PO CONSTIPATION; Start 03/27/16 at 17:30 Sodium Chloride (1/2 NS) 1,000 ml @ 100 mls/hr Q10H IV Last administered on 12:48; Admin Dose 100 MLS/HR; Start 03/28/16 at 10:30 Linezolid (Zyvox) 600 mg BID PO Last administered on 04/02/16 08:08; Admin Dose 600 MG; Start 03/30/16 at 21:00 Levofloxacin (Levaquin) 250 mg DAILY@06 PO Last administered on 04/02/16 06:02 ; Admin Dose 250 MG; Start 03/31/16 at 06:00 Ferrous Sulfate (Ferrous Sulfate (Ec)) 325 mg BID PO Last administered on 08:08; Admin Dose 325 MG; Start 03/31/16 at 12:00 Morphine Sulfate 4 mg 4 mg Q3H PRN IV SEVERE PAIN Last administered on 10:30; Admin Dose 4 MG; Start 04/01/16 at 12:00 Ferric Sodium Gluconate Complex/ Sodium Chloride (Ferrlecit/NS) 110 ml @ 110 mls/hr Q24H IVPB Last administered on 04/01/16 22:26; Admin Dose 110 MLS/HR; Start 04/01/16 at 21:00; Stop 04/05/16 at 21:59 Assessment/Plan Chief Complaint/Hosp Course Abx: Zyvox, Levaquin PHYSICAL EXAMINATION: GENERAL: This is a morbidly obese, middle-aged white man who is alert, in no distress. HEENT: Head atraumatic, normocephalic. Sclerae anicteric. Buccal mucosa pink. NECK: Obese. CHEST: Rise symmetrical. Breath sounds clear, diminished to bases. HEART: S1, S2. ABDOMEN: Obese with significant pannus. Bowel tones hypoactive. EXTREMITIES: Without cyanosis. SKIN: With significant pannus and significant scrotal edema, foul smell coming from scrotal wound. ASSESSMENT: 1. Scrotal abscess-s/p drainage 04/01==> cx + GNR 2. Morbid obesity. 3. Renal failure, acute on possibly chronic. PLAN: Remains stable, continue abx, wound care per urology, f/u final cx [facility] staff Problems: WILFRED LUU NP Apr 02, 2016 14:36
--- NOTE | 2016-04-02 17:53 | PN ---
Date/Time of Note Date/Time of Note DATE: 04/02/16 TIME: 17:46 Assessment/Plan VTE Prophylaxis VTE Prophylaxis Intervention: SCD's Lines/Catheters IV [facility] Type (from [email or web address] [place] Urinary Cath still in place: No Assessment/Plan Chief Complaint/Hosp Course 1. Left scrotal cellulitis with abscess s/p Drainage by Urology -Cont Zyvox and Levaquin -ID consult with Dr. Jimenez appreciated -US Scrotum showed orchitis or testicular mass -Urology consult with Dr Mccormick appreciated 2. Morbid obesity. Advise lifestyle changes. 3. Sepsis secondary to #1-Improving -Continue Abx. 4. Hyperglycemia-resolved -A1c is 6.4 5. Prophylaxis: Sequential compression devices. Dispo- Anticipate DC in 1-2 days Problems: Subjective 24 Hr Interval Summary Constitutional: no complaints Exam/Review of Systems Vital Signs Vitals Vital Signs Date Time Temp Pulse Resp B/P Pulse Ox O2 Delivery O2 Flow Rate FiO2 04/02/16 07:32 97.4 81 22 117/67 94 Intake and Output 04/01/16 04/01/16 04/02/16 15:00 23:00 07:00 Intake Total 900 ml 1400 ml 1790 ml Balance 900 ml 1400 ml 1790 ml Exam Constitutional: alert, oriented Respiratory: clear to auscultation Cardiovascular: regular rate and rhythm Gastrointestinal: soft, No distended Musculoskeletal: nl extremities to inspection Results Result Diagram: 04/02/16 0457 04/02/16 0457 Results 24 hrs Laboratory Tests Test 04/02/16 04:57 Anion Gap 19 H Basophils # 0.1 Basophils % 0.7 Blood Morphology Comment Blood Urea Nitrogen 35 H Calcium Level 9.1 Carbon Dioxide Level 22 Chloride Level 105 Creatinine 1.83 H Eosinophils # 0.5 Eosinophils % 4.4 Glucose Level 109 Hematocrit 32.5 L Hemoglobin 10.6 L Lymphocytes # 1.6 Lymphocytes % 13.3 L Mean Corpuscular Hemoglobin 29.2 Mean Corpuscular Hemoglobin Concent 32.4 Mean Corpuscular Volume 90.0 Mean Platelet Volume 7.9 Monocytes # 1.0 H Monocytes % 7.8 Neutrophils # 9.1 H Neutrophils % 73.8 Nucleated Red Blood Cells # 0.0 Nucleated Red Blood Cells % 0.0 Platelet Count 355 # Potassium Level 4.8 Red Blood Count 3.62 L Red Cell Distribution Width 15.9 H Sodium Level 141 White Blood Count 12.3 H Medications Medications Current Medications Ondansetron HCl (Zofran Inj) 4 mg Q6H PRN IV NAUSEA AND/OR VOMITING; Start at 17:30 Acetaminophen (Tylenol Tab) 650 mg Q6H PRN PO PAIN LEVEL 1-3 OR FEVER; Start at 17:30 Acetaminophen/ Hydrocodone Bitart ([place] (5/325)) 1 tab Q6H PRN PO MODERATE PAIN LEVEL 4-6 Last administered on 03/29/16 23:26; Admin Dose 1 TAB; Start at 17:30 Docusate Sodium 100 mg 100 mg Q12H PRN PO CONSTIPATION; Start 03/27/16 at 17:30 Sodium Chloride (1/2 NS) 1,000 ml @ 100 mls/hr Q10H IV Last administered on 12:48; Admin Dose 100 MLS/HR; Start 03/28/16 at 10:30 Linezolid (Zyvox) 600 mg BID PO Last administered on 04/02/16 08:08; Admin Dose 600 MG; Start 03/30/16 at 21:00 Levofloxacin (Levaquin) 250 mg DAILY@06 PO Last administered on 04/02/16 06:02 ; Admin Dose 250 MG; Start 03/31/16 at 06:00 Ferrous Sulfate (Ferrous Sulfate (Ec)) 325 mg BID PO Last administered on 08:08; Admin Dose 325 MG; Start 03/31/16 at 12:00 Morphine Sulfate 4 mg 4 mg Q3H PRN IV SEVERE PAIN Last administered on 14:44; Admin Dose 4 MG; Start 04/01/16 at 12:00 Ferric Sodium Gluconate Complex/ Sodium Chloride (Ferrlecit/NS) 110 ml @ 110 mls/hr Q24H IVPB Last administered on 04/01/16 22:26; Admin Dose 110 MLS/HR; Start 04/01/16 at 21:00; Stop 04/05/16 at 21:59 SANJAY MEZA Apr 02, 2016 17:53
[2016-04-02 20:11] VITALS: BP 118/68; RESP 22
[2016-04-02] MEDS: SOD FERRIC GLUC COMPLX 125 MG in SOD CHLORIDE 0.9% 100 ML IVPB SCH (21:15)
--- NOTE | 2016-04-02 21:52 | CONS ---
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 Comment: Pt had testicular bx Additional Assessment/Plan May dc antibiotics Consultation Date/Type/Reason Admit Date/Time Mar 27, 2016 at 16:17 Initial Consult Date 03/28/16 This note is for the visit on 03/29/16 at 1000AM Type of Consultation: renal Referring Provider: SANJAY MEZA 24 HR Interval Summary Free Text/Dictation Pt feels better Constitutional: improved Exam/Review of Systems Vital Signs Vitals Vital Signs Date Time Temp Pulse Resp B/P Pulse Ox O2 Delivery O2 Flow Rate FiO2 04/02/16 20:11 98.6 88 22 118/68 93 Intake and Output 04/01/16 04/01/16 04/02/16 15:00 23:00 07:00 Intake Total 900 ml 1400 ml 1790 ml Balance 900 ml 1400 ml 1790 ml Exam Constitutional: alert, obese, oriented Head: normocephalic ENMT: nl external ears & nose Neck: supple Respiratory: clear to auscultation Gastrointestinal: soft Genitourinary - Male: other (scrotal swelling) Extremities: normal pulses Neurological: CONCAVER II-XII intact Additional Comments Serum creat has improved a bit Results Result Diagram: 04/02/16 0457 04/02/16 0457 Results 24 hrs Laboratory Tests Test 04/02/16 04:57 Anion Gap 19 H Basophils # 0.1 Basophils % 0.7 Blood Morphology Comment Blood Urea Nitrogen 35 H Calcium Level 9.1 Carbon Dioxide Level 22 Chloride Level 105 Creatinine 1.83 H Eosinophils # 0.5 Eosinophils % 4.4 Glucose Level 109 Hematocrit 32.5 L Hemoglobin 10.6 L Lymphocytes # 1.6 Lymphocytes % 13.3 L Mean Corpuscular Hemoglobin 29.2 Mean Corpuscular Hemoglobin Concent 32.4 Mean Corpuscular Volume 90.0 Mean Platelet Volume 7.9 Monocytes # 1.0 H Monocytes % 7.8 Neutrophils # 9.1 H Neutrophils % 73.8 Nucleated Red Blood Cells # 0.0 Nucleated Red Blood Cells % 0.0 Platelet Count 355 # Potassium Level 4.8 Red Blood Count 3.62 L Red Cell Distribution Width 15.9 H Sodium Level 141 White Blood Count 12.3 H Medications Medications Current Medications Ondansetron HCl (Zofran Inj) 4 mg Q6H PRN IV NAUSEA AND/OR VOMITING; Start at 17:30 Acetaminophen (Tylenol Tab) 650 mg Q6H PRN PO PAIN LEVEL 1-3 OR FEVER; Start at 17:30 Acetaminophen/ Hydrocodone Bitart ([place] (5/325)) 1 tab Q6H PRN PO MODERATE PAIN LEVEL 4-6 Last administered on 03/29/16 23:26; Admin Dose 1 TAB; Start at 17:30 Docusate Sodium 100 mg 100 mg Q12H PRN PO CONSTIPATION; Start 03/27/16 at 17:30 Sodium Chloride (1/2 NS) 1,000 ml @ 100 mls/hr Q10H IV Last administered on 12:48; Admin Dose 100 MLS/HR; Start 03/28/16 at 10:30 Linezolid (Zyvox) 600 mg BID PO Last administered on 04/02/16 21:14; Admin Dose 600 MG; Start 03/30/16 at 21:00 Levofloxacin (Levaquin) 250 mg DAILY@06 PO Last administered on 04/02/16 06:02 ; Admin Dose 250 MG; Start 03/31/16 at 06:00 Ferrous Sulfate (Ferrous Sulfate (Ec)) 325 mg BID PO Last administered on 21:14; Admin Dose 325 MG; Start 03/31/16 at 12:00 Morphine Sulfate 4 mg 4 mg Q3H PRN IV SEVERE PAIN Last administered on 21:14; Admin Dose 4 MG; Start 04/01/16 at 12:00 Ferric Sodium Gluconate Complex/ Sodium Chloride (Ferrlecit/NS) 110 ml @ 110 mls/hr Q24H IVPB Last administered on 04/02/16 21:15; Admin Dose 110 MLS/HR; Start 04/01/16 at 21:00; Stop 04/05/16 at 21:59 LASHON GUZMAN MD Apr 02, 2016 21:52
[2016-04-03] MEDS: morphine 4 MG/ML VIAL IV PRN ×8 (00:15→23:29)
[2016-04-03] MEDS: SOD CHLORIDE 0.45% 1,000 ML IV SCH ×3 (00:17→21:14)
[2016-04-03] MEDS: LEVOFLOXACIN 250 MG TAB PO SCH (06:17)
[2016-04-03 06:49] LABS: BASOPHIL # 0.1 10^3/ul (0.0-0.1); BASOPHILS % 0.5 % (0.0-2.0); EOSINOPHILS # 0.7 10^3/ul (0.0-0.5); HEMATOCRIT 31.8 % (42.0-52.0); HEMOGLOBIN 10.5 g/dl (14.0-18.0); LYMPHOCYTES # 1.8 10^3/ul (0.8-2.9); MEAN CORPUSCULAR HEMOGLOBIN 29.9 pg (29.0-33.0); MEAN CORPUSCULAR VOLUME 90.4 fl (82.0-101.0); MEAN PLATELET VOLUME 7.8 fl (7.4-10.4); MONOCYTES % 7.3 % (0.0-11.0); NEUTROPHIL # 9.7 10^3/ul (1.6-7.5); NEUTROPHILS % 73.2 % (39.0-77.0); PLATELET COUNT 356 10^3/UL (140-440); RED BLOOD COUNT 3.52 10^6/ul (4.70-6.10); UNCORRECTED WBC 13.2 10^3/ul (4.8-10.8); WHITE BLOOD COUNT 13.2 10^3/ul (4.8-10.8)
[2016-04-03 06:57] LABS: CONDITION 1; LH ANALYZER COMMENTS 1
[2016-04-03 07:44] VITALS: BP 129/85; RESP 22
[2016-04-03 08:22] LABS: POTASSIUM 5.1 mmol/L (3.5-5.1)
[2016-04-03 08:25] LABS: CREATININE 1.6 mg/dl (0.61-1.24)
[2016-04-03 08:26] LABS: CALCIUM 8.8 mg/dl (8.4-10.2)
[2016-04-03] MEDS: FERROUS SULFATE (EC) 325 MG TAB PO SCH ×2 (09:00→20:19)
[2016-04-03] MEDS: ZYVOX 600 MG TAB PO SCH ×2 (09:01→20:19)
--- NOTE | 2016-04-03 12:46 | PN ---
DATE: 04/03/2016 SUBJECTIVE DATA: Complains of incisional pain. Remains afebrile. OBJECTIVE: VITAL SIGNS: Temperature 97.5, pulse 103, respiratory rate 22, blood pressure 129/80, oxygen saturation 95% on room. GENERAL: This is a morbidly obese male patient lying in bed in no apparent distress. HEENT: Head normocephalic and atraumatic. Eyes: Anicteric sclerae. Conjunctivae clear. ENT: Nasal septum is midline. Oral mucosa is moist. NECK: Short and obese. RESPIRATORY: Bilaterally diminished breath sounds. No adventitious breath sounds heard. No use of accessory muscles of respiration. CARDIAC: Regular rate and rhythm. No murmurs. ABDOMEN: Obese. Soft. Nontender. Bowel sounds are hypoactive in all 4 quadrants. GENITOURINARY: Penis completely covered by pubic fat. EXTREMITIES: No cyanosis, no clubbing, no edema. Peripheral pulses palpable. NEUROLOGIC: The patient is awake, alert and oriented. Cranial nerves are grossly intact. LABORATORY AND DIAGNOSTIC DATA: WBC 13.8, hemoglobin 10.5, hematocrit 31.8, platelet count 356. Sodium 141, potassium 5.0, chloride 107, carbon dioxide 25 , anion gap 15, BUN 20, creatinine 1.6, glucose 93, calcium 8.8. ASSESSMENT AND PLAN: 1. Left scrotal abscess. Status post incision and drainage on 04/01/2016. Continue antibiotics as per Infectious Disease. Urology following the patient. 2. Chronic kidney disease. Continue to monitor renal function closely. Avoid nephrotoxic medications. 3. Normocytic normochromic anemia. Underlying iron deficiency. Continue iron supplements. 4. Diabetes. Hemoglobin A1c 6.4. Blood glucose within normal limits. The patient ideally needs to be on metformin. However, because of elevated renal function, the patient is not a candidate for metformin. However, if the patient' s blood sugars start running high, he will be started on sliding scale insulin. 5. Morbid obesity. BMI of 57.6 kilograms per meter squared. Weight reduction advised. 5. Status post sepsis secondary to underlying left scrotal abscess. On antibiotics as per Infectious Disease. No evidence of any septic shock. 6. Fluid, electrolytes and nutrition. Regular diet. 7. DVT prophylaxis with bilateral sequential compression devices. 8. Gastrointestinal prophylaxis. Histamine 2 receptor blockers. PLAN: Continue pain control. Continue antibiotics as per Infectious Disease. Await clearance from consultants before discharge. The case was discussed with Dr. Blount. ANASTASIA BLOUNT MD, AM/MISAEL Conf#: [id number] DID#: [id number] MTDD
--- NOTE | 2016-04-03 15:30 | CONS ---
Date/Time of Note Date/Time of Note DATE: 04/03/16 TIME: 15:30 Assessment/Plan Assessment/Plan Additional Assessment/Plan (1) Anemia/LEIGH Status: Chronic Cont Iron Rx (2) Scrotal Epidydimitis with abscess. S/p I & D Comment: Consult reviewed. (3) MERISSA vs CKD (chronic kidney disease) stage 3, GFR 30-59 ml/min Comment: etiology could be nephrosclerosis and Acute component Vanco Induced. (4) Obesity Status: Chronic Comment: nay need dietary counseling Additional Assessment/Plan 24 hr Cr Cl >30, ? CKD stage III Vs MERISSA 2nd Vanco, Renal function stable, Electroytes OK. IRon Deficiency, Cont Oral Iron Consultation Date/Type/Reason Admit Date/Time Mar 27, 2016 at 16:17 Initial Consult Date 03/28/16 Type of Consultation: renal Referring Provider: SANJAY MEZA Exam/Review of Systems Vital Signs Vitals Vital Signs Date Time Temp Pulse Resp B/P Pulse Ox O2 Delivery O2 Flow Rate FiO2 04/03/16 07:44 97.5 103 22 129/85 95 Intake and Output 04/02/16 04/02/16 04/03/16 15:00 23:00 07:00 Intake Total 760 ml 1690 ml 1580 ml Balance 760 ml 1690 ml 1580 ml Results Result Diagram: 04/03/16 0511 04/03/16 0730 Results 24 hrs Laboratory Tests Test 04/03/16 05:11 04/03/16 07:30 Basophils # 0.1 Basophils % 0.5 Blood Morphology Comment Eosinophils # 0.7 H Eosinophils % 5.0 Hematocrit 31.8 L Hemoglobin 10.5 L Lymphocytes # 1.8 Lymphocytes % 14.0 L Mean Corpuscular Hemoglobin 29.9 Mean Corpuscular Hemoglobin Concent 33.0 Mean Corpuscular Volume 90.4 Mean Platelet Volume 7.8 Monocytes # 1.0 H Monocytes % 7.3 Neutrophils # 9.7 H Neutrophils % 73.2 Nucleated Red Blood Cells # 0.0 Nucleated Red Blood Cells % 0.0 Platelet Count 356 Red Blood Count 3.52 L Red Cell Distribution Width 16.0 H White Blood Count 13.2 H Anion Gap 15 Blood Urea Nitrogen 28 H Calcium Level 8.8 Carbon Dioxide Level 24 Chloride Level 107 Creatinine 1.60 H Glucose Level 93 Potassium Level 5.1 Sodium Level 141 Medications Medications Current Medications Ondansetron HCl (Zofran Inj) 4 mg Q6H PRN IV NAUSEA AND/OR VOMITING; Start at 17:30 Acetaminophen (Tylenol Tab) 650 mg Q6H PRN PO PAIN LEVEL 1-3 OR FEVER; Start at 17:30 Acetaminophen/ Hydrocodone Bitart ([place] (5/325)) 1 tab Q6H PRN PO MODERATE PAIN LEVEL 4-6 Last administered on 03/29/16 23:26; Admin Dose 1 TAB; Start at 17:30 Docusate Sodium 100 mg 100 mg Q12H PRN PO CONSTIPATION; Start 03/27/16 at 17:30 Sodium Chloride (1/2 NS) 1,000 ml @ 100 mls/hr Q10H IV Last administered on 11:40; Admin Dose 100 MLS/HR; Start 03/28/16 at 10:30 Linezolid (Zyvox) 600 mg BID PO Last administered on 04/03/16 09:01; Admin Dose 600 MG; Start 03/30/16 at 21:00 Levofloxacin (Levaquin) 250 mg DAILY@06 PO Last administered on 04/03/16 06:17 ; Admin Dose 250 MG; Start 03/31/16 at 06:00 Ferrous Sulfate (Ferrous Sulfate (Ec)) 325 mg BID PO Last administered on 09:00; Admin Dose 325 MG; Start 03/31/16 at 12:00 Morphine Sulfate (morphine) 4 mg Q3H PRN IV SEVERE PAIN Last administered on 15:08; Admin Dose 4 MG; Start 04/01/16 at 12:00 Famotidine (Pepcid) 20 mg BID PO ; Start 04/03/16 at 21:00 RAISA COSBY MD Apr 03, 2016 15:30
--- NOTE | 2016-04-03 16:34 | CONS ---
Date/Time of Note Date/Time of Note DATE: 04/03/16 TIME: 16:33 Assessment/Plan Assessment/Plan Chief Complaint/Hosp Course No events, alert, feels ok, no fevers, nad Abx: Zyvox, Levaquin PHYSICAL EXAMINATION: GENERAL: This is a morbidly obese, middle-aged white man who is alert, in no distress. HEENT: Head atraumatic, normocephalic. Sclerae anicteric. Buccal mucosa pink. NECK: Obese. CHEST: Rise symmetrical. Breath sounds clear, diminished to bases. HEART: S1, S2. ABDOMEN: Obese with significant pannus. Bowel tones hypoactive. EXTREMITIES: Without cyanosis. SKIN: With significant pannus and significant scrotal edema, scrotal wound dsg. ASSESSMENT: 1. Scrotal abscess-s/p drainage 04/01==> cx + E coli 2. Morbid obesity. 3. Renal failure, acute on possibly chronic. PLAN: Remains stable, dc Zyvox, continue Levaquin, wound care per urology [facility] staff Problems: Consultation Date/Type/Reason Admit Date/Time Mar 27, 2016 at 16:17 Initial Consult Date 03/28/16 Type of Consultation: id Referring Provider: SANJAY MEZA Exam/Review of Systems Vital Signs Vitals Vital Signs Date Time Temp Pulse Resp B/P Pulse Ox O2 Delivery O2 Flow Rate FiO2 04/03/16 07:44 97.5 103 22 129/85 95 Intake and Output 04/02/16 04/02/16 04/03/16 15:00 23:00 07:00 Intake Total 760 ml 1690 ml 1580 ml Balance 760 ml 1690 ml 1580 ml Results Result Diagram: 04/03/16 0511 04/03/16 0730 Results 24 hrs Laboratory Tests Test 04/03/16 05:11 04/03/16 07:30 Basophils # 0.1 Basophils % 0.5 Blood Morphology Comment Eosinophils # 0.7 H Eosinophils % 5.0 Hematocrit 31.8 L Hemoglobin 10.5 L Lymphocytes # 1.8 Lymphocytes % 14.0 L Mean Corpuscular Hemoglobin 29.9 Mean Corpuscular Hemoglobin Concent 33.0 Mean Corpuscular Volume 90.4 Mean Platelet Volume 7.8 Monocytes # 1.0 H Monocytes % 7.3 Neutrophils # 9.7 H Neutrophils % 73.2 Nucleated Red Blood Cells # 0.0 Nucleated Red Blood Cells % 0.0 Platelet Count 356 Red Blood Count 3.52 L Red Cell Distribution Width 16.0 H White Blood Count 13.2 H Anion Gap 15 Blood Urea Nitrogen 28 H Calcium Level 8.8 Carbon Dioxide Level 24 Chloride Level 107 Creatinine 1.60 H Glucose Level 93 Potassium Level 5.1 Sodium Level 141 Medications Medications Current Medications Ondansetron HCl (Zofran Inj) 4 mg Q6H PRN IV NAUSEA AND/OR VOMITING; Start at 17:30 Acetaminophen (Tylenol Tab) 650 mg Q6H PRN PO PAIN LEVEL 1-3 OR FEVER; Start at 17:30 Acetaminophen/ Hydrocodone Bitart ([place] (5/325)) 1 tab Q6H PRN PO MODERATE PAIN LEVEL 4-6 Last administered on 03/29/16 23:26; Admin Dose 1 TAB; Start at 17:30 Docusate Sodium 100 mg 100 mg Q12H PRN PO CONSTIPATION; Start 03/27/16 at 17:30 Sodium Chloride (1/2 NS) 1,000 ml @ 100 mls/hr Q10H IV Last administered on 11:40; Admin Dose 100 MLS/HR; Start 03/28/16 at 10:30 Linezolid (Zyvox) 600 mg BID PO Last administered on 04/03/16 09:01; Admin Dose 600 MG; Start 03/30/16 at 21:00 Levofloxacin (Levaquin) 250 mg DAILY@06 PO Last administered on 04/03/16 06:17 ; Admin Dose 250 MG; Start 03/31/16 at 06:00 Ferrous Sulfate (Ferrous Sulfate (Ec)) 325 mg BID PO Last administered on 09:00; Admin Dose 325 MG; Start 03/31/16 at 12:00 Morphine Sulfate (morphine) 4 mg Q3H PRN IV SEVERE PAIN Last administered on 15:08; Admin Dose 4 MG; Start 04/01/16 at 12:00 Famotidine (Pepcid) 20 mg BID PO ; Start 04/03/16 at 21:00 WILFRED LUU NP Apr 03, 2016 16:34
[2016-04-03 19:00] VITALS: BP 121/74; RESP 20
[2016-04-03] MEDS: FAMOTIDINE 20 MG TAB PO SCH (20:19)
--- NOTE | 2016-04-04 05:24 | PN ---
DATE: 04/03/2016 SUBJECTIVE: Left scrotal abscess and acute epididymitis that was drained 2 days ago and over 500 mL of sanguinopurulent material drained. The wound was packed with iodoform packing. The patient toda y feels much better and his pain is much less. OBJECTIVE VITAL SIGNS: The temperature is 97.5, pulse of 103. Respiration 22 and the blood pressure 129/85. ABDOMEN: Again, the abdomen is very obese and folding over the pubic area and the pubic area is fol ding over the scrotal area. The scrotum, the left side it is packed with Iodoform packing. The fluid, the culture from the scrotal wound showed E. coli and that is resistant to ampicillin, re sistant to cefazolin, sensitive to cefotaxime, Cipro, gentamicin, Levaquin and tobramycin. Resistan t to Bactrim. The CBC shows a white count of 13.2, hemoglobin is 10.5, hematocrit 31.8. BUN is imp roving, is 28, creatinine down to 1.6. Electrolytes: Sodium 141, potassium 5.1, chloride 107, CO2 24. MEDICATIONS: The patient is on Levaquin and that should be good for controlling his infection. IMPRESSION: Acute left epididymitis with abscess formation in the left scrotum and scrotal cavity. The patient had it drained and over 500 mL of sanguinopurulent material drained and that area is be ing packed with iodoform packing daily. PLAN: To continue the packing of the wound and also continue his Levaquin. Dictated By: KAROL PACHECO/MISAEL Conf#: [id number] DID#: [id number]
[2016-04-04] MEDS: morphine 4 MG/ML VIAL IV PRN ×7 (05:36→23:51)
[2016-04-04] MEDS: LEVOFLOXACIN 250 MG TAB PO SCH (05:36)
[2016-04-04 06:23] LABS: MAGNESIUM 1.8 mg/dl (1.7-2.5); PHOSPHORUS 5.2 mg/dl (2.5-4.9)
[2016-04-04 06:24] LABS: POTASSIUM 5.3 mmol/L (3.5-5.1)
[2016-04-04 06:27] LABS: CREATININE 1.55 mg/dl (0.61-1.24)
[2016-04-04 06:28] LABS: CALCIUM 9.2 mg/dl (8.4-10.2)
[2016-04-04 06:46] LABS: BASOPHILS % 0.3 % (0.0-2.0); EOSINOPHILS # 0.5 10^3/ul (0.0-0.5); EOSINOPHILS % 4.6 % (0.0-7.0); HEMATOCRIT 32.4 % (42.0-52.0); HEMOGLOBIN 10.8 g/dl (14.0-18.0); LYMPHOCYTES # 1.6 10^3/ul (0.8-2.9); LYMPHOCYTES % 14.2 % (15.0-51.0); MEAN CORPUSCULAR HEMOGLOBIN 29.9 pg (29.0-33.0); MEAN CORPUSCULAR HGB CONC 33.3 g/dl (32.0-37.0); MEAN CORPUSCULAR VOLUME 89.8 fl (82.0-101.0); MEAN PLATELET VOLUME 7.4 fl (7.4-10.4); MONOCYTE # 0.6 10^3/ul (0.3-0.9); MONOCYTES % 5.5 % (0.0-11.0); NEUTROPHIL # 8.8 10^3/ul (1.6-7.5); NEUTROPHILS % 75.4 % (39.0-77.0); PLATELET COUNT 401 10^3/UL (140-440); RED CELL DISTRIBUTION WIDTH 15.9 % (11.5-14.5); UNCORRECTED WBC 11.6 10^3/ul (4.8-10.8); WHITE BLOOD COUNT 11.6 10^3/ul (4.8-10.8)
[2016-04-04 07:11] LABS: CONDITION 1
[2016-04-04 07:12] LABS: LH ANALYZER COMMENTS 1
[2016-04-04 07:46] VITALS: BP 124/68; RESP 20
[2016-04-04] MEDS: ZYVOX 600 MG TAB PO SCH (09:10)
[2016-04-04] MEDS: FERROUS SULFATE (EC) 325 MG TAB PO SCH ×2 (09:10→20:54)
[2016-04-04] MEDS: FAMOTIDINE 20 MG TAB PO SCH ×2 (09:10→20:54)
[2016-04-04] MEDS: SOD CHLORIDE 0.45% 1,000 ML IV SCH ×4 (09:18→22:30)
--- NOTE | 2016-04-04 10:49 | PN ---
Date/Time of Note Date/Time of Note DATE: 04/04/16 TIME: 10:49 Assessment/Plan VTE Prophylaxis VTE Prophylaxis Intervention: SCD's Lines/Catheters IV Catheter Type (from [facility]): Peripheral IV Urinary Cath still in place: No Assessment/Plan Chief Complaint/Hosp Course 1. Left scrotal abscess. Status post incision and drainage on 04/01/2016. Continue antibiotics as per Infectious Disease. Urology following the patient. 2. Chronic kidney disease. Continue to monitor renal function closely. Avoid nephrotoxic medications. 3. Normocytic normochromic anemia. Underlying iron deficiency. Continue iron supplements. 4. Diabetes. Hemoglobin A1c 6.4. Blood glucose within normal limits. The patient ideally needs to be on metformin. However, because of elevated renal function, the patient is not a candidate for metformin. However, if the patient' s blood sugars start running high, he will be started on sliding scale insulin. 5. Morbid obesity. BMI of 57.6 kilograms per meter squared. Weight reduction advised. 5. Status post sepsis secondary to underlying left scrotal abscess. On antibiotics as per Infectious Disease. No evidence of any septic shock. 6. Fluid, electrolytes and nutrition. Regular diet. 7. DVT prophylaxis with bilateral sequential compression devices. 8. Gastrointestinal prophylaxis. Histamine 2 receptor blockers. PLAN: Single dose of potassium exchange resin for hyperkalemia. Continue pain control. Continue antibiotics as per Infectious Disease. Await clearance from consultants before discharge. The case was discussed with Dr. Zaragoza. Problems: Subjective 24 Hr Interval Summary Free Text/Dictation The patient remains afebrile. Exam/Review of Systems Vital Signs Vitals Vital Signs Date Time Temp Pulse Resp B/P Pulse Ox O2 Delivery O2 Flow Rate FiO2 04/04/16 07:46 97.8 101 20 124/68 93 Intake and Output 04/03/16 04/03/16 04/04/16 15:00 23:00 07:00 Intake Total 550 ml 2040 ml 1860 ml Balance 550 ml 2040 ml 1860 ml Exam GENERAL: This is a morbidly obese male patient lying in bed in no apparent distress. HEENT: Head normocephalic and atraumatic. Eyes: Anicteric sclerae. Conjunctivae clear. ENT: Nasal septum is midline. Oral mucosa is moist. NECK: Short and obese. RESPIRATORY: Bilaterally diminished breath sounds. No adventitious breath sounds heard. No use of accessory muscles of respiration. CARDIAC: Regular rate and rhythm. No murmurs. ABDOMEN: Obese. Soft. Nontender. Bowel sounds are hypoactive in all 4 quadrants. GENITOURINARY: Penis completely covered by pubic fat. EXTREMITIES: No cyanosis, no clubbing, no edema. Peripheral pulses palpable. NEUROLOGIC: The patient is awake, alert and oriented. Cranial nerves are grossly intact. Results Result Diagram: 04/04/165 04/04/16 0445 Results 24 hrs Laboratory Tests Test 04/04/16 04:45 04/04/16 07:37 Anion Gap 15 Basophils # 0.0 Basophils % 0.3 Blood Morphology Comment Blood Urea Nitrogen 26 H Calcium Level 9.2 Carbon Dioxide Level 25 Chloride Level 107 Creatinine 1.55 H Eosinophils # 0.5 Eosinophils % 4.6 Glucose Level 106 Hematocrit 32.4 L Hemoglobin 10.8 L Lymphocytes # 1.6 Lymphocytes % 14.2 L Magnesium Level 1.8 Mean Corpuscular Hemoglobin 29.9 Mean Corpuscular Hemoglobin Concent 33.3 Mean Corpuscular Volume 89.8 Mean Platelet Volume 7.4 Monocytes # 0.6 Monocytes % 5.5 Neutrophils # 8.8 H Neutrophils % 75.4 Nucleated Red Blood Cells # 0.0 Nucleated Red Blood Cells % 0.0 Phosphorus Level 5.2 H Platelet Count 401 Potassium Level 5.3 H Red Blood Count 3.60 L Red Cell Distribution Width 15.9 H Sodium Level 142 White Blood Count 11.6 H Lab Scanned Report REFERENCE LAB Medications Medications Current Medications Ondansetron HCl (Zofran Inj) 4 mg Q6H PRN IV NAUSEA AND/OR VOMITING; Start at 17:30 Acetaminophen (Tylenol Tab) 650 mg Q6H PRN PO PAIN LEVEL 1-3 OR FEVER; Start at 17:30 Acetaminophen/ Hydrocodone Bitart ([place] (5/325)) 1 tab Q6H PRN PO MODERATE PAIN LEVEL 4-6 Last administered on 03/29/16 23:26; Admin Dose 1 TAB; Start at 17:30 Docusate Sodium 100 mg 100 mg Q12H PRN PO CONSTIPATION; Start 03/27/16 at 17:30 Sodium Chloride (1/2 NS) 1,000 ml @ 100 mls/hr Q10H IV Last administered on 09:18; Admin Dose 100 MLS/HR; Start 03/28/16 at 10:30 Linezolid (Zyvox) 600 mg BID PO Last administered on 04/04/16 09:10; Admin Dose 600 MG; Start 03/30/16 at 21:00 Levofloxacin (Levaquin) 250 mg DAILY@06 PO Last administered on 04/04/16 05:36 ; Admin Dose 250 MG; Start 03/31/16 at 06:00 Ferrous Sulfate (Ferrous Sulfate (Ec)) 325 mg BID PO Last administered on 09:10; Admin Dose 325 MG; Start 03/31/16 at 12:00 Morphine Sulfate (morphine) 4 mg Q3H PRN IV SEVERE PAIN Last administered on 08:43; Admin Dose 4 MG; Start 04/01/16 at 12:00 Famotidine (Pepcid) 20 mg BID PO Last administered on 04/04/16 09:10; Admin Dose 20 MG; Start 04/03/16 at 21:00 ANASTASIA HIGH NP Apr 04, 2016 10:49
[2016-04-04] MEDS ORDERED: NA POLYST SULFON 15 GM/60 ML BTL PO ONE (11:00)
--- NOTE | 2016-04-04 12:43 | CONS ---
Date/Time of Note Date/Time of Note DATE: 04/04/16 TIME: 12:41 Assessment/Plan Assessment/Plan Additional Assessment/Plan (1) Anemia/LEIGH Status: Chronic Cont Iron Rx (2) Scrotal Epidydimitis with abscess. S/p I & D Comment: Consult reviewed. (3) MERISSA vs CKD (chronic kidney disease) stage 3, GFR 30-59 ml/min Comment: etiology could be nephrosclerosis and Acute component Vanco Induced. (4) Obesity Status: Chronic Additional Assessment/Plan Hyperkalemia, pt given Kayexalate, Repeat labs in am will cont to monitor UO, Electrolytes and Renal function, Stable and improving. Consultation Date/Type/Reason Admit Date/Time Mar 27, 2016 at 16:17 Initial Consult Date 03/28/16 Type of Consultation: Nephrology Referring Provider: SANJAY MEZA Exam/Review of Systems Vital Signs Vitals Vital Signs Date Time Temp Pulse Resp B/P Pulse Ox O2 Delivery O2 Flow Rate FiO2 04/04/16 07:46 97.8 101 20 124/68 93 Intake and Output 04/03/16 04/03/16 04/04/16 15:00 23:00 07:00 Intake Total 550 ml 2040 ml 1860 ml Balance 550 ml 2040 ml 1860 ml Exam Constitutional: No distress ENMT: mucosa pink and moist Respiratory: No labored breathing Neurological: MONOR[employer] HELPER II-XII intact, nl mental status Results Result Diagram: 04/04/16 0445 04/04/16 0445 Results 24 hrs Laboratory Tests Test 04/04/16 04:45 04/04/16 07:37 Anion Gap 15 Basophils # 0.0 Basophils % 0.3 Blood Morphology Comment Blood Urea Nitrogen 26 H Calcium Level 9.2 Carbon Dioxide Level 25 Chloride Level 107 Creatinine 1.55 H Eosinophils # 0.5 Eosinophils % 4.6 Glucose Level 106 Hematocrit 32.4 L Hemoglobin 10.8 L Lymphocytes # 1.6 Lymphocytes % 14.2 L Magnesium Level 1.8 Mean Corpuscular Hemoglobin 29.9 Mean Corpuscular Hemoglobin Concent 33.3 Mean Corpuscular Volume 89.8 Mean Platelet Volume 7.4 Monocytes # 0.6 Monocytes % 5.5 Neutrophils # 8.8 H Neutrophils % 75.4 Nucleated Red Blood Cells # 0.0 Nucleated Red Blood Cells % 0.0 Phosphorus Level 5.2 H Platelet Count 401 Potassium Level 5.3 H Red Blood Count 3.60 L Red Cell Distribution Width 15.9 H Sodium Level 142 White Blood Count 11.6 H Lab Scanned Report REFERENCE LAB Medications Medications Current Medications Ondansetron HCl (Zofran Inj) 4 mg Q6H PRN IV NAUSEA AND/OR VOMITING; Start at 17:30 Acetaminophen (Tylenol Tab) 650 mg Q6H PRN PO PAIN LEVEL 1-3 OR FEVER; Start at 17:30 Acetaminophen/ Hydrocodone Bitart ([place] (5/325)) 1 tab Q6H PRN PO MODERATE PAIN LEVEL 4-6 Last administered on 03/29/16 23:26; Admin Dose 1 TAB; Start at 17:30 Docusate Sodium 100 mg 100 mg Q12H PRN PO CONSTIPATION; Start 03/27/16 at 17:30 Sodium Chloride (1/2 NS) 1,000 ml @ 100 mls/hr Q10H IV Last administered on 09:18; Admin Dose 100 MLS/HR; Start 03/28/16 at 10:30 Levofloxacin (Levaquin) 250 mg DAILY@06 PO Last administered on 04/04/16 05:36 ; Admin Dose 250 MG; Start 03/31/16 at 06:00 Ferrous Sulfate (Ferrous Sulfate (Ec)) 325 mg BID PO Last administered on 09:10; Admin Dose 325 MG; Start 03/31/16 at 12:00 Morphine Sulfate (morphine) 4 mg Q3H PRN IV SEVERE PAIN Last administered on 11:41; Admin Dose 4 MG; Start 04/01/16 at 12:00 Famotidine (Pepcid) 20 mg BID PO Last administered on 04/04/16 09:10; Admin Dose 20 MG; Start 04/03/16 at 21:00 RAISA COSBY MD Apr 04, 2016 12:43
--- NOTE | 2016-04-04 16:29 | PN ---
DATE: 04/04/2016 INFECTIOUS DISEASE PROGRESS NOTE SUBJECTIVE: No acute changes. No fevers. The patient is awake, lying comfortably in bed. WBC today 11.6, no shift, no bands. BUN 26, creatinine 1.55. ANTIMICROBIALS: Patient is on Levaquin. PHYSICAL EXAMINATION: GENERAL: This is a morbidly obese, middle-aged white man who is lying comfortably in bed. HEENT: Head atraumatic, normocephalic. Sclerae anicteric. Buccal mucosa dry. NECK: Supple, trachea midline. CHEST: Rise symmetrical. Breath sounds diminished to bases. HEART: S1, S2. ABDOMEN: Obese, bowel tones present. EXTREMITIES: Bilateral edema. ASSESSMENT: 1. Acute left epididymitis with abscess formation in the left scrotum and scrotal cavity, status po st incision and drainage with wound culture grew Escherichia coli, remains on Levaquin. 2. Morbid obesity. 3. Acute on chronic kidney disease. PLAN: The patient remains stable on appropriate antimicrobials. White blood cell count tracing andres n. Continue local wound care as per urology recommendations. Dictated By: WILFRED LUU CANCER REGISTRAR for KARRIE BOOTH MD NI/NTS Conf#: [id number] DID#: [id number]
[2016-04-04 19:59] VITALS: BP 122/73; RESP 20
--- NOTE | 2016-04-04 21:01 | PN ---
DATE: 04/04/2016 SUBJECTIVE: Left scrotal epididymitis and abscess. Also the abscess is going deep into the scrotum and may be draining also in the prerectal space where the patient had it drain before. The patient is comfortable at the present, and he feels much better. OBJECTIVE: VITAL SIGNS: His temperature is 97.8, pulse is 101, respirations 20 and blood pressure 124/68. GENITOURINARY: The patient is morbidly obese with the abdomen folding over the pubic area and the p ubic area folding over the scrotal area. Penis is buried deep into the pubic fat. LABORATORY DATA: His CBC shows a white count of 11.6, hemoglobin 10.8, hematocrit 32.4. BUN is 26, creatinine 1.55, sodium 142, potassium 5.3, chloride 107, CO2 of 25. The culture from the scrotal abscess did grow E. coli that is sensitive to Levaquin, which the patie nt is on. IMPRESSION: Scrotal abscess and left epididymitis that is extending deep from the scrotum and going toward the left side and into probably the prerectal space. I did go ahead and with the help of the nurse put the patient in the flat supine position and took t he old packing and showed the nurse how deep the abscess is, and I packed it all the way deep into t he left side of the scrotum, and the packing was pushed in as much as possible and then covered with a pad, an ABD. Then the prerectal packing was removed, and the direction of that abscess in the pr erectal area is going toward the scrotum, which makes one think that it may be connected to the drclayton nage from the scrotal area. PLAN: As I changed the packing, I did order a CT of the pelvis without contrast just to see how bishop p the abscess is and, especially that we have the packing in, to have an idea how deep and how exten sive it is. Dictated By: KAROL PACHECO/MISAEL Conf#: [id number] DID#: [id number]
[2016-04-05] MEDS: morphine 4 MG/ML VIAL IV PRN ×7 (03:00→22:44)
[2016-04-05] MEDS: SOD CHLORIDE 0.45% 1,000 ML IV SCH ×3 (05:59→18:15)
[2016-04-05 06:00] LABS: BASOPHIL # 0.1 10^3/ul (0.0-0.1); BASOPHILS % 0.5 % (0.0-2.0); EOSINOPHILS # 0.5 10^3/ul (0.0-0.5); EOSINOPHILS % 4.8 % (0.0-7.0); HEMATOCRIT 32.6 % (42.0-52.0); HEMOGLOBIN 10.8 g/dl (14.0-18.0); LYMPHOCYTES # 1.9 10^3/ul (0.8-2.9); LYMPHOCYTES % 16.8 % (15.0-51.0); MEAN CORPUSCULAR HEMOGLOBIN 29.7 pg (29.0-33.0); MEAN CORPUSCULAR VOLUME 89.8 fl (82.0-101.0); MEAN PLATELET VOLUME 6.9 fl (7.4-10.4); MONOCYTE # 0.5 10^3/ul (0.3-0.9); MONOCYTES % 4.9 % (0.0-11.0); NEUTROPHIL # 8.1 10^3/ul (1.6-7.5); PLATELET COUNT 411 10^3/UL (140-440); RED BLOOD COUNT 3.63 10^6/ul (4.70-6.10); RED CELL DISTRIBUTION WIDTH 16.3 % (11.5-14.5); UNCORRECTED WBC 11.1 10^3/ul (4.8-10.8); WHITE BLOOD COUNT 11.1 10^3/ul (4.8-10.8)
[2016-04-05] MEDS: LEVOFLOXACIN 250 MG TAB PO SCH (06:08)
[2016-04-05 06:09] LABS: CONDITION 1; LH ANALYZER COMMENTS 1
[2016-04-05 06:10] LABS: POTASSIUM 4.9 mmol/L (3.5-5.1)
[2016-04-05 06:13] LABS: CREATININE 1.46 mg/dl (0.61-1.24)
[2016-04-05 06:14] LABS: CALCIUM 9.1 mg/dl (8.4-10.2)
[2016-04-05 06:22] LABS: MAGNESIUM 1.7 mg/dl (1.7-2.5); PHOSPHORUS 5.3 mg/dl (2.5-4.9)
[2016-04-05 07:34] VITALS: BP 120/74; RESP 20
[2016-04-05] MEDS: FAMOTIDINE 20 MG TAB PO SCH ×2 (09:04→22:44)
[2016-04-05] MEDS: FERROUS SULFATE (EC) 325 MG TAB PO SCH ×2 (09:04→22:43)
--- NOTE | 2016-04-05 10:31 | PN ---
Date/Time of Note Date/Time of Note DATE: 04/05/16 TIME: 10:31 Assessment/Plan VTE Prophylaxis VTE Prophylaxis Intervention: SCD's Lines/Catheters IV Catheter Type (from [facility]): Peripheral IV Urinary Cath still in place: No Assessment/Plan Chief Complaint/Hosp Course 1. Left scrotal abscess. Status post incision and drainage on 04/01/2016. Continue antibiotics as per Infectious Disease. Urology following the patient. 2. Chronic kidney disease. Continue to monitor renal function closely. Avoid nephrotoxic medications. 3. Normocytic normochromic anemia. Underlying iron deficiency. Continue iron supplements. 4. Pre-diabetes. Hemoglobin A1c 6.4. Blood glucose within normal limits. The patient ideally needs to be on metformin. However, because of elevated renal function, the patient is not a candidate for metformin. However, if the patient's blood sugars start running high, he will be started on sliding scale insulin. 5. Morbid obesity. BMI of 57.6 kilograms per meter squared. Weight reduction advised. 5. Status post sepsis secondary to underlying left scrotal abscess. On antibiotics as per Infectious Disease. No evidence of any septic shock. 6. Fluid, electrolytes and nutrition. Regular diet. 7. DVT prophylaxis with bilateral sequential compression devices. 8. Gastrointestinal prophylaxis. Histamine 2 receptor blockers. PLAN: Continue pain control. Continue antibiotics as per Infectious Disease. Await clearance from consultants before discharge. The case was discussed with Dr. Zaragoza. Problems: Subjective 24 Hr Interval Summary Free Text/Dictation The patient remains afebrile. Pain well controlled. Exam/Review of Systems Vital Signs Vitals Vital Signs Date Time Temp Pulse Resp B/P Pulse Ox O2 Delivery O2 Flow Rate FiO2 04/05/16 07:34 97.5 102 20 120/74 94 Intake and Output 04/04/16 04/04/16 04/05/16 15:00 23:00 07:00 Intake Total 2100 ml 1400 ml Balance 2100 ml 1400 ml Exam GENERAL: This is a morbidly obese male patient lying in bed in no apparent distress. HEENT: Head normocephalic and atraumatic. Eyes: Anicteric sclerae. Conjunctivae clear. ENT: Nasal septum is midline. Oral mucosa is moist. NECK: Short and obese. RESPIRATORY: Bilaterally diminished breath sounds. No adventitious breath sounds heard. No use of accessory muscles of respiration. CARDIAC: Regular rate and rhythm. No murmurs. ABDOMEN: Obese. Soft. Nontender. Bowel sounds are hypoactive in all 4 quadrants. GENITOURINARY: Penis completely covered by pubic fat. EXTREMITIES: No cyanosis, no clubbing, no edema. Peripheral pulses palpable. NEUROLOGIC: The patient is awake, alert and oriented. Cranial nerves are grossly intact. Results Result Diagram: 04/05/16 0521 04/05/16 0521 Results 24 hrs Laboratory Tests Test 04/05/16 05:21 Anion Gap 16 Basophils # 0.1 Basophils % 0.5 Blood Morphology Comment Blood Urea Nitrogen 23 H Calcium Level 9.1 Carbon Dioxide Level 24 Chloride Level 106 Creatinine 1.46 H Eosinophils # 0.5 Eosinophils % 4.8 Glucose Level 105 Hematocrit 32.6 L Hemoglobin 10.8 L Lymphocytes # 1.9 Lymphocytes % 16.8 Magnesium Level 1.7 Mean Corpuscular Hemoglobin 29.7 Mean Corpuscular Hemoglobin Concent 33.0 Mean Corpuscular Volume 89.8 Mean Platelet Volume 6.9 L Monocytes # 0.5 Monocytes % 4.9 Neutrophils # 8.1 H Neutrophils % 73.0 Nucleated Red Blood Cells # 0.0 Nucleated Red Blood Cells % 0.0 Phosphorus Level 5.3 H Platelet Count 411 Potassium Level 4.9 Red Blood Count 3.63 L Red Cell Distribution Width 16.3 H Sodium Level 141 White Blood Count 11.1 H Medications Medications Current Medications Ondansetron HCl (Zofran Inj) 4 mg Q6H PRN IV NAUSEA AND/OR VOMITING; Start at 17:30 Acetaminophen (Tylenol Tab) 650 mg Q6H PRN PO PAIN LEVEL 1-3 OR FEVER; Start at 17:30 Acetaminophen/ Hydrocodone Bitart ([place] (5/325)) 1 tab Q6H PRN PO MODERATE PAIN LEVEL 4-6 Last administered on 03/29/16 23:26; Admin Dose 1 TAB; Start at 17:30 Docusate Sodium 100 mg 100 mg Q12H PRN PO CONSTIPATION; Start 03/27/16 at 17:30 Sodium Chloride (1/2 NS) 1,000 ml @ 100 mls/hr Q10H IV Last administered on 05:59; Admin Dose 100 MLS/HR; Start 03/28/16 at 10:30 Levofloxacin (Levaquin) 250 mg DAILY@06 PO Last administered on 04/05/16 06:08 ; Admin Dose 250 MG; Start 03/31/16 at 06:00 Ferrous Sulfate (Ferrous Sulfate (Ec)) 325 mg BID PO Last administered on 09:04; Admin Dose 325 MG; Start 03/31/16 at 12:00 Morphine Sulfate (morphine) 4 mg Q3H PRN IV SEVERE PAIN Last administered on 09:04; Admin Dose 4 MG; Start 04/01/16 at 12:00 Famotidine (Pepcid) 20 mg BID PO Last administered on 04/05/16 09:04; Admin Dose 20 MG; Start 04/03/16 at 21:00 ANASTASIA HIGH NP Apr 05, 2016 10:31
--- NOTE | 2016-04-05 12:20 | RADRPT ---
PROCEDURE: CT Abdomen and Pelvis without contrast. CLINICAL INDICATION: Abdominal and pelvic pain. Scrotal abscess. TECHNIQUE: CT scan of the abdomen and pelvis without contrast was performed. Coronal and sagittal reformatted images were obtained from the axial source images. Images were reviewed on a high-resolu [employer] PACS workstation. Total exam DLP is 2072.33 mGy-cm. CTDIvol is 23.55 mGy. One or more of the following dose reduction techniques were used: Automated exposure control, adjustment of the mA and/ or kV according to patient size, use of iterative reconstruction technique. COMPARISON: Scrotal ultrasound dated 03/29/2016 and renal ultrasound dated 03/28/2016. FINDINGS: The images are suboptimal due to large size of the patient. There is a small benign calcified granuloma at the left lung base. The lung bases are otherwise nor mal. There is no pleural effusion. The liver is normal in size and attenuation. There is no focal hepatic lesion. Possible gallstones are present in the gallbladder. There is no evidence of cholecystitis. The yahir e ducts are normal. The spleen is normal in size. There is no focal splenic lesion. Both adrenals are normal with no enlargement or mass. The pancreas is unremarkable with no mass or evidence of pancreatitis. The left kidney is atrophic. The kidneys are otherwise unremarkable with no mass, hydronephrosis, o r calculus. The abdominal aorta is not dilated. There is no retroperitoneal lymphadenopathy or mass. There is no pelvic lymphadenopathy or mass. The bladder and distal ureters are normal. There is marked scrotal wall edema. There is thickening of the wall of the scrotum, predominately due to adipose tissue. There is a left-sided scrotal skin ulcer with gas extending superiorly into the left side of the scrotum subcutaneous adipose tissues. Gas does not extend into the inguinal canal or spermatic cord sheath. The appendix is well seen and appears normal. There is diverticulosis of the descending colon and sigmoid colon without evidence of diverticulitis . The bowel and mesentery are otherwise normal. There is no free fluid or free gas. There are degenerative changes of the lumbar spine. There is no fracture or lytic lesion. IMPRESSION: 1. Suboptimal images due to large size of the patient. 2. Small benign calcified granuloma at the left lung base. 3. Possible gallstones in the gallbladder. No evidence of cholecystitis. 4. Atrophic left kidney. 5. Marked scrotal wall edema and thickening of the wall of the scrotum predominately due to adipose tissue. 6. Left-sided scrotal skin ulcer with gas extending superiorly in the left side of the scrotum subc utaneous adipose tissue. Gas does not extend into the inguinal canal or spermatic cord sheath. 7. Diverticulosis of the descending colon and sigmoid colon. 8. Degenerative changes of the lumbar spine. RPTAT: QQ .Hernan Dooley MD, MD Date Time Electronically viewed and signed by .Hernan Dooley MD, MD on 04/05/2016 12:20 .R/
--- NOTE | 2016-04-05 14:34 | CONS ---
Date/Time of Note Date/Time of Note DATE: 04/05/16 TIME: 14:33 Assessment/Plan Assessment/Plan Chief Complaint/Hosp Course No events, alert, feels ok, no fevers, nad Abx: Levaquin PHYSICAL EXAMINATION: GENERAL: This is a morbidly obese, middle-aged white man who is alert, in no distress. HEENT: Head atraumatic, normocephalic. Sclerae anicteric. Buccal mucosa pink. NECK: Obese. CHEST: Rise symmetrical. Breath sounds clear, diminished to bases. HEART: S1, S2. ABDOMEN: Obese with significant pannus. Bowel tones hypoactive. EXTREMITIES: Without cyanosis. SKIN: With significant pannus and significant scrotal edema, scrotal wound dsg. ASSESSMENT: 1. Scrotal abscess-s/p drainage 04/01==> cx + E coli 2. Morbid obesity. 3. Renal failure, acute on possibly chronic. PLAN: Remains stable, continue Levaquin, wound care per urology, repeat CT abdomen results noted [facility] staff Problems: Consultation Date/Type/Reason Admit Date/Time Mar 27, 2016 at 16:17 Initial Consult Date 03/28/16 Type of Consultation: id Referring Provider: SANJAY MEZA Exam/Review of Systems Vital Signs Vitals Vital Signs Date Time Temp Pulse Resp B/P Pulse Ox O2 Delivery O2 Flow Rate FiO2 04/05/16 07:34 97.5 102 20 120/74 94 Intake and Output 04/04/16 04/04/16 04/05/16 15:00 23:00 07:00 Intake Total 2100 ml 1400 ml Balance 2100 ml 1400 ml Results Result Diagram: 04/05/16 0521 04/05/16 0521 Results 24 hrs Laboratory Tests Test 04/05/16 05:21 Anion Gap 16 Basophils # 0.1 Basophils % 0.5 Blood Morphology Comment Blood Urea Nitrogen 23 H Calcium Level 9.1 Carbon Dioxide Level 24 Chloride Level 106 Creatinine 1.46 H Eosinophils # 0.5 Eosinophils % 4.8 Glucose Level 105 Hematocrit 32.6 L Hemoglobin 10.8 L Lymphocytes # 1.9 Lymphocytes % 16.8 Magnesium Level 1.7 Mean Corpuscular Hemoglobin 29.7 Mean Corpuscular Hemoglobin Concent 33.0 Mean Corpuscular Volume 89.8 Mean Platelet Volume 6.9 L Monocytes # 0.5 Monocytes % 4.9 Neutrophils # 8.1 H Neutrophils % 73.0 Nucleated Red Blood Cells # 0.0 Nucleated Red Blood Cells % 0.0 Phosphorus Level 5.3 H Platelet Count 411 Potassium Level 4.9 Red Blood Count 3.63 L Red Cell Distribution Width 16.3 H Sodium Level 141 White Blood Count 11.1 H Medications Medications Current Medications Ondansetron HCl (Zofran Inj) 4 mg Q6H PRN IV NAUSEA AND/OR VOMITING; Start at 17:30 Acetaminophen (Tylenol Tab) 650 mg Q6H PRN PO PAIN LEVEL 1-3 OR FEVER; Start at 17:30 Acetaminophen/ Hydrocodone Bitart ([place] (5/325)) 1 tab Q6H PRN PO MODERATE PAIN LEVEL 4-6 Last administered on 03/29/16 23:26; Admin Dose 1 TAB; Start at 17:30 Docusate Sodium 100 mg 100 mg Q12H PRN PO CONSTIPATION; Start 03/27/16 at 17:30 Sodium Chloride (1/2 NS) 1,000 ml @ 100 mls/hr Q10H IV Last administered on 05:59; Admin Dose 100 MLS/HR; Start 03/28/16 at 10:30 Levofloxacin (Levaquin) 250 mg DAILY@06 PO Last administered on 04/05/16 06:08 ; Admin Dose 250 MG; Start 03/31/16 at 06:00 Ferrous Sulfate (Ferrous Sulfate (Ec)) 325 mg BID PO Last administered on 09:04; Admin Dose 325 MG; Start 03/31/16 at 12:00 Morphine Sulfate (morphine) 4 mg Q3H PRN IV SEVERE PAIN Last administered on 12:13; Admin Dose 4 MG; Start 04/01/16 at 12:00 Famotidine (Pepcid) 20 mg BID PO Last administered on 04/05/16 09:04; Admin Dose 20 MG; Start 04/03/16 at 21:00 WILFRED LUU NP Apr 05, 2016 14:34
--- NOTE | 2016-04-05 17:36 | CONS ---
Date/Time of Note Date/Time of Note DATE: 04/05/16 TIME: 17:34 Assessment/Plan Assessment/Plan Additional Assessment/Plan (1) Anemia/LEIGH Status: Chronic Cont Iron Rx (2) Scrotal Epidydimitis with abscess. S/p I & D Comment: Consult reviewed. (3) MERISSA vs CKD (chronic kidney disease) stage 3, GFR 30-59 ml/min Comment: etiology could be nephrosclerosis and Acute component Vanco Induced. (4) Obesity Status: Chronic Additional Assessment/Plan Hyperkalemia, Resolved will cont to monitor UO, Electrolytes and Renal function, Stable and improving. Phos Binder ordered tid with meals. Consultation Date/Type/Reason Admit Date/Time Mar 27, 2016 at 16:17 Initial Consult Date 03/28/16 Type of Consultation: Nephrology Referring Provider: SANJAY MEZA Exam/Review of Systems Vital Signs Vitals Vital Signs Date Time Temp Pulse Resp B/P Pulse Ox O2 Delivery O2 Flow Rate FiO2 04/05/16 07:34 97.5 102 20 120/74 94 Intake and Output 04/04/16 04/04/16 04/05/16 15:00 23:00 07:00 Intake Total 2100 ml 1400 ml Balance 2100 ml 1400 ml Exam Obese Constitutional: No distress ENMT: mucosa pink and moist Gastrointestinal: soft Extremities: edema Neurological: No lethargic Results Result Diagram: 04/05/16 0521 04/05/16 0521 Results 24 hrs Laboratory Tests Test 04/05/16 05:21 Anion Gap 16 Basophils # 0.1 Basophils % 0.5 Blood Morphology Comment Blood Urea Nitrogen 23 H Calcium Level 9.1 Carbon Dioxide Level 24 Chloride Level 106 Creatinine 1.46 H Eosinophils # 0.5 Eosinophils % 4.8 Glucose Level 105 Hematocrit 32.6 L Hemoglobin 10.8 L Lymphocytes # 1.9 Lymphocytes % 16.8 Magnesium Level 1.7 Mean Corpuscular Hemoglobin 29.7 Mean Corpuscular Hemoglobin Concent 33.0 Mean Corpuscular Volume 89.8 Mean Platelet Volume 6.9 L Monocytes # 0.5 Monocytes % 4.9 Neutrophils # 8.1 H Neutrophils % 73.0 Nucleated Red Blood Cells # 0.0 Nucleated Red Blood Cells % 0.0 Phosphorus Level 5.3 H Platelet Count 411 Potassium Level 4.9 Red Blood Count 3.63 L Red Cell Distribution Width 16.3 H Sodium Level 141 White Blood Count 11.1 H Medications Medications Current Medications Ondansetron HCl (Zofran Inj) 4 mg Q6H PRN IV NAUSEA AND/OR VOMITING; Start at 17:30 Acetaminophen (Tylenol Tab) 650 mg Q6H PRN PO PAIN LEVEL 1-3 OR FEVER; Start at 17:30 Acetaminophen/ Hydrocodone Bitart ([place] (5/325)) 1 tab Q6H PRN PO MODERATE PAIN LEVEL 4-6 Last administered on 03/29/16 23:26; Admin Dose 1 TAB; Start at 17:30 Docusate Sodium 100 mg 100 mg Q12H PRN PO CONSTIPATION; Start 03/27/16 at 17:30 Sodium Chloride (1/2 NS) 1,000 ml @ 100 mls/hr Q10H IV Last administered on 05:59; Admin Dose 100 MLS/HR; Start 03/28/16 at 10:30 Levofloxacin (Levaquin) 250 mg DAILY@06 PO Last administered on 04/05/16 06:08 ; Admin Dose 250 MG; Start 03/31/16 at 06:00 Ferrous Sulfate (Ferrous Sulfate (Ec)) 325 mg BID PO Last administered on 09:04; Admin Dose 325 MG; Start 03/31/16 at 12:00 Morphine Sulfate (morphine) 4 mg Q3H PRN IV SEVERE PAIN Last administered on 15:16; Admin Dose 4 MG; Start 04/01/16 at 12:00 Famotidine (Pepcid) 20 mg BID PO Last administered on 04/05/16 09:04; Admin Dose 20 MG; Start 04/03/16 at 21:00 RAISA COSBY MD Apr 05, 2016 17:36
[2016-04-05] MEDS: SEVELAMER 800 MG TAB PO SCH (18:15)
[2016-04-05 19:00] VITALS: BP 118/67; RESP 20
--- NOTE | 2016-04-05 19:20 | PN ---
DATE: 04/05/2016 SUBJECTIVE: Left epididymitis with scrotal abscess and perirectal abscess. The patient feels better , and his pain has markedly decreased since the drainage of the abscess was done. OBJECTIVE VITAL SIGNS: His temperature today is 97.5, pulse is 102, respirations 20, blood pressure 120/74. ABDOMEN: Very obese, as well as the pubic area. LABORATORY DATA: Today shows a CBC of 11.1, hemoglobin 10.8, hematocrit 32.6. BUN is 23, creatinin e 1.46, electrolytes are normal. Again, the culture from the abscess showed E. coli that is sensiti ve to Levaquin and Cipro, resistant to Bactrim, ampicillin, and cefazolin. The patient underwent a CT scan of the abdomen and pelvis today to evaluate the extension of the abs cess, and the CT scan was reported as suboptimal images due to the large size of the patient. The p atient weighs 198 kilograms. He does have a small benign calcified granuloma at the left lung base. He has possible gallstones in the gallbladder. No evidence of cholecystitis. Atrophic left kidne y, marked scrotal wall edema and thickening of the wall of the scrotum, predominantly due to adipose tissue. A left sided scrotal skin ulcer with gas extending superiorly in the left side of the scro lilli subcutaneous adipose tissue. Gas does not extend into the inguinal canal or spermatic cord. Di verticulosis of the descending colon and sigmoid colon, degenerative changes of the lumbar spine. T he right kidney has a small stone. IMPRESSION: Again, left epididymitis and a scrotal abscess that was drained. The packing was remov ed today and a new packing was put in, and so far the patient is responding well and his pain is dec reasing. PLAN: To continue the antibiotic and continue packing and unpacking of the wound. As far as the ki dney/small tiny kidney stone, just leave it alone. Dictated By: KAROL PACHECO/MISAEL Conf#: [id number] DID#: [id number]
[2016-04-06] MEDS: morphine 4 MG/ML VIAL IV PRN ×7 (03:10→21:29)
[2016-04-06] MEDS: SOD CHLORIDE 0.45% 1,000 ML IV SCH ×2 (04:36→15:42)
[2016-04-06] MEDS: LEVOFLOXACIN 250 MG TAB PO SCH (06:03)
[2016-04-06 06:06] LABS: BASOPHILS % 0.5 % (0.0-2.0); EOSINOPHILS # 0.4 10^3/ul (0.0-0.5); EOSINOPHILS % 4.1 % (0.0-7.0); HEMATOCRIT 32.4 % (42.0-52.0); HEMOGLOBIN 10.9 g/dl (14.0-18.0); LYMPHOCYTES # 1.5 10^3/ul (0.8-2.9); MEAN CORPUSCULAR HGB CONC 33.5 g/dl (32.0-37.0); MEAN CORPUSCULAR VOLUME 89.6 fl (82.0-101.0); MEAN PLATELET VOLUME 6.6 fl (7.4-10.4); MONOCYTE # 0.5 10^3/ul (0.3-0.9); MONOCYTES % 5.1 % (0.0-11.0); NEUTROPHIL # 7.7 10^3/ul (1.6-7.5); NEUTROPHILS % 75.3 % (39.0-77.0); PLATELET COUNT 389 10^3/UL (140-440); RED BLOOD COUNT 3.61 10^6/ul (4.70-6.10); RED CELL DISTRIBUTION WIDTH 15.9 % (11.5-14.5); UNCORRECTED WBC 10.2 10^3/ul (4.8-10.8); WHITE BLOOD COUNT 10.2 10^3/ul (4.8-10.8)
[2016-04-06 06:16] LABS: POTASSIUM 5.1 mmol/L (3.5-5.1)
[2016-04-06 06:18] LABS: CREATININE 1.38 mg/dl (0.61-1.24); MAGNESIUM 1.7 mg/dl (1.7-2.5)
[2016-04-06 06:19] LABS: CALCIUM 8.9 mg/dl (8.4-10.2)
[2016-04-06 06:40] LABS: CONDITION 1; LH ANALYZER COMMENTS 1
[2016-04-06 07:28] VITALS: BP 117/72; RESP 20
[2016-04-06] MEDS: FAMOTIDINE 20 MG TAB PO SCH ×2 (08:11→20:18)
[2016-04-06] MEDS: SEVELAMER 800 MG TAB PO SCH ×3 (08:11→18:35)
[2016-04-06] MEDS: FERROUS SULFATE (EC) 325 MG TAB PO SCH ×2 (08:11→20:18)
--- NOTE | 2016-04-06 11:31 | CONS ---
Date/Time of Note Date/Time of Note DATE: 04/06/16 TIME: 11:30 Assessment/Plan Assessment/Plan Additional Assessment/Plan (1) Anemia/LEIGH Status: Chronic Cont Iron Rx (2) Scrotal Epidydimitis with abscess. S/p I & D Comment: Consult reviewed. (3) MERISSA vs CKD (chronic kidney disease) stage 3, GFR 30-59 ml/min Comment: etiology could be nephrosclerosis and Acute component Vanco Induced. (4) Obesity Status: Chronic Additional Assessment/Plan Hyperkalemia, Resolved will cont to monitor UO, Electrolytes and Renal function, Stable and improving. Phos Binder tid with meals. Consultation Date/Type/Reason Admit Date/Time Mar 27, 2016 at 16:17 Initial Consult Date 03/28/16 Type of Consultation: Nephrology Referring Provider: SANJAY MEZA Exam/Review of Systems Vital Signs Vitals Vital Signs Date Time Temp Pulse Resp B/P Pulse Ox O2 Delivery O2 Flow Rate FiO2 04/06/16 07:28 98.1 104 20 117/72 94 Intake and Output 04/05/16 04/05/16 04/06/16 15:00 23:00 07:00 Intake Total 1840 ml 1770 ml Balance 1840 ml 1770 ml Exam Constitutional: No distress ENMT: mucosa pink and moist Respiratory: No diminished breath sounds Cardiovascular: edema, regular rate and rhythm Gastrointestinal: non-tender, soft Neurological: MOSAIC LAYER II-XII intact, No lethargic Results Result Diagram: 04/06/16 0525 04/06/16 0525 Results 24 hrs Laboratory Tests Test 04/06/16 05:25 Anion Gap 12 Basophils # 0.0 Basophils % 0.5 Blood Morphology Comment Blood Urea Nitrogen 23 H Calcium Level 8.9 Carbon Dioxide Level 27 Chloride Level 107 Creatinine 1.38 H Eosinophils # 0.4 Eosinophils % 4.1 Glucose Level 110 Hematocrit 32.4 L Hemoglobin 10.9 L Lymphocytes # 1.5 Lymphocytes % 15.0 Magnesium Level 1.7 Mean Corpuscular Hemoglobin 30.0 Mean Corpuscular Hemoglobin Concent 33.5 Mean Corpuscular Volume 89.6 Mean Platelet Volume 6.6 L Monocytes # 0.5 Monocytes % 5.1 Neutrophils # 7.7 H Neutrophils % 75.3 Nucleated Red Blood Cells # 0.0 Nucleated Red Blood Cells % 0.0 Phosphorus Level 5.0 H Platelet Count 389 Potassium Level 5.1 Red Blood Count 3.61 L Red Cell Distribution Width 15.9 H Sodium Level 141 White Blood Count 10.2 Medications Medications Current Medications Ondansetron HCl (Zofran Inj) 4 mg Q6H PRN IV NAUSEA AND/OR VOMITING; Start at 17:30 Acetaminophen (Tylenol Tab) 650 mg Q6H PRN PO PAIN LEVEL 1-3 OR FEVER; Start at 17:30 Acetaminophen/ Hydrocodone Bitart ([place] (5/325)) 1 tab Q6H PRN PO MODERATE PAIN LEVEL 4-6 Last administered on 03/29/16 23:26; Admin Dose 1 TAB; Start at 17:30 Docusate Sodium 100 mg 100 mg Q12H PRN PO CONSTIPATION; Start 03/27/16 at 17:30 Sodium Chloride (1/2 NS) 1,000 ml @ 100 mls/hr Q10H IV Last administered on 04:36; Admin Dose 100 MLS/HR; Start 03/28/16 at 10:30 Ferrous Sulfate (Ferrous Sulfate (Ec)) 325 mg BID PO Last administered on 08:11; Admin Dose 325 MG; Start 03/31/16 at 12:00 Morphine Sulfate (morphine) 4 mg Q3H PRN IV SEVERE PAIN Last administered on 09:13; Admin Dose 4 MG; Start 04/01/16 at 12:00 Famotidine (Pepcid) 20 mg BID PO Last administered on 04/06/16 08:11; Admin Dose 20 MG; Start 04/03/16 at 21:00 Levofloxacin (Levaquin) 500 mg DAILY@06 PO Last administered on 04/06/16 06:03 ; Admin Dose 500 MG; Start 04/06/16 at 06:00 RAISA COSBY MD Apr 06, 2016 11:31
--- NOTE | 2016-04-06 11:32 | PN ---
Date/Time of Note Date/Time of Note DATE: 04/06/16 TIME: 11:31 Assessment/Plan VTE Prophylaxis VTE Prophylaxis Intervention: SCD's Lines/Catheters IV Catheter Type (from [facility]): Peripheral IV Urinary Cath still in place: No Assessment/Plan Chief Complaint/Hosp Course 1. Left epididymitis and scrotal abscess. Status post incision and drainage on 04/01/2016. Continue antibiotics as per Infectious Disease. Urology following the patient. 2. Chronic kidney disease. Continue to monitor renal function closely. Avoid nephrotoxic medications. 3. Normocytic normochromic anemia. Underlying iron deficiency. Continue iron supplements. 4. Pre-diabetes. Hemoglobin A1c 6.4. Blood glucose within normal limits. The patient ideally needs to be on metformin. However, because of elevated renal function, the patient is not a candidate for metformin. However, if the patient's blood sugars start running high, he will be started on sliding scale insulin. 5. Morbid obesity. BMI of 57.6 kilograms per meter squared. Weight reduction advised. 5. Status post sepsis secondary to underlying left scrotal abscess. On antibiotics as per Infectious Disease. No evidence of any septic shock. 6. Fluid, electrolytes and nutrition. Regular diet. 7. DVT prophylaxis with bilateral sequential compression devices. 8. Gastrointestinal prophylaxis. Histamine 2 receptor blockers. PLAN: Continue pain control. Continue antibiotics as per Infectious Disease. Await clearance from consultants before discharge. The case was discussed with Dr. Zaragoza. Problems: Subjective 24 Hr Interval Summary Free Text/Dictation Patient remains afebrile. Exam/Review of Systems Vital Signs Vitals Vital Signs Date Time Temp Pulse Resp B/P Pulse Ox O2 Delivery O2 Flow Rate FiO2 04/06/16 07:28 98.1 104 20 117/72 94 Intake and Output 04/05/16 04/05/16 04/06/16 15:00 23:00 07:00 Intake Total 1840 ml 1770 ml Balance 1840 ml 1770 ml Exam GENERAL: This is a morbidly obese male patient lying in bed in no apparent distress. HEENT: Head normocephalic and atraumatic. Eyes: Anicteric sclerae. Conjunctivae clear. ENT: Nasal septum is midline. Oral mucosa is moist. NECK: Short and obese. RESPIRATORY: Bilaterally diminished breath sounds. No adventitious breath sounds heard. No use of accessory muscles of respiration. CARDIAC: Regular rate and rhythm. No murmurs. ABDOMEN: Obese. Soft. Nontender. Bowel sounds are hypoactive in all 4 quadrants. GENITOURINARY: Penis completely covered by pubic fat. EXTREMITIES: No cyanosis, no clubbing, no edema. Peripheral pulses palpable. NEUROLOGIC: The patient is awake, alert and oriented. Cranial nerves are grossly intact. Results Result Diagram: 04/06/16 0525 04/06/16 0525 Results 24 hrs Laboratory Tests Test 04/06/16 05:25 Anion Gap 12 Basophils # 0.0 Basophils % 0.5 Blood Morphology Comment Blood Urea Nitrogen 23 H Calcium Level 8.9 Carbon Dioxide Level 27 Chloride Level 107 Creatinine 1.38 H Eosinophils # 0.4 Eosinophils % 4.1 Glucose Level 110 Hematocrit 32.4 L Hemoglobin 10.9 L Lymphocytes # 1.5 Lymphocytes % 15.0 Magnesium Level 1.7 Mean Corpuscular Hemoglobin 30.0 Mean Corpuscular Hemoglobin Concent 33.5 Mean Corpuscular Volume 89.6 Mean Platelet Volume 6.6 L Monocytes # 0.5 Monocytes % 5.1 Neutrophils # 7.7 H Neutrophils % 75.3 Nucleated Red Blood Cells # 0.0 Nucleated Red Blood Cells % 0.0 Phosphorus Level 5.0 H Platelet Count 389 Potassium Level 5.1 Red Blood Count 3.61 L Red Cell Distribution Width 15.9 H Sodium Level 141 White Blood Count 10.2 Medications Medications Current Medications Ondansetron HCl (Zofran Inj) 4 mg Q6H PRN IV NAUSEA AND/OR VOMITING; Start at 17:30 Acetaminophen (Tylenol Tab) 650 mg Q6H PRN PO PAIN LEVEL 1-3 OR FEVER; Start at 17:30 Acetaminophen/ Hydrocodone Bitart ([place] (5/325)) 1 tab Q6H PRN PO MODERATE PAIN LEVEL 4-6 Last administered on 03/29/16 23:26; Admin Dose 1 TAB; Start at 17:30 Docusate Sodium 100 mg 100 mg Q12H PRN PO CONSTIPATION; Start 03/27/16 at 17:30 Sodium Chloride (1/2 NS) 1,000 ml @ 100 mls/hr Q10H IV Last administered on 04:36; Admin Dose 100 MLS/HR; Start 03/28/16 at 10:30 Ferrous Sulfate (Ferrous Sulfate (Ec)) 325 mg BID PO Last administered on 08:11; Admin Dose 325 MG; Start 03/31/16 at 12:00 Morphine Sulfate (morphine) 4 mg Q3H PRN IV SEVERE PAIN Last administered on 09:13; Admin Dose 4 MG; Start 04/01/16 at 12:00 Famotidine (Pepcid) 20 mg BID PO Last administered on 04/06/16 08:11; Admin Dose 20 MG; Start 04/03/16 at 21:00 Levofloxacin (Levaquin) 500 mg DAILY@06 PO Last administered on 04/06/16 06:03 ; Admin Dose 500 MG; Start 04/06/16 at 06:00 ANASTASIA HIGH NP Apr 06, 2016 11:32
--- NOTE | 2016-04-06 13:23 | CONS ---
Date/Time of Note Date/Time of Note DATE: 04/06/16 TIME: 13:22 Assessment/Plan Assessment/Plan Chief Complaint/Hosp Course Subjective: No events, alert, feels ok, no fevers, nad Abx: Levaquin PHYSICAL EXAMINATION: GENERAL: This is a morbidly obese, middle-aged white man who is alert, in no distress. HEENT: Head atraumatic, normocephalic. Sclerae anicteric. Buccal mucosa pink. NECK: Obese. CHEST: Rise symmetrical. Breath sounds clear, diminished to bases. HEART: S1, S2. ABDOMEN: Obese with significant pannus. Bowel tones hypoactive. EXTREMITIES: Without cyanosis. SKIN: With significant pannus and significant scrotal edema, scrotal wound dsg. ASSESSMENT: 1. Scrotal abscess-s/p drainage 04/01==> cx + E coli 2. Morbid obesity. 3. Renal failure, acute on possibly chronic. PLAN: Remains stable, continue abx, wound care per urology [facility] staff Problems: Consultation Date/Type/Reason Admit Date/Time Mar 27, 2016 at 16:17 Initial Consult Date 03/28/16 Type of Consultation: id Referring Provider: SANJAY MEZA Exam/Review of Systems Vital Signs Vitals Vital Signs Date Time Temp Pulse Resp B/P Pulse Ox O2 Delivery O2 Flow Rate FiO2 04/06/16 07:28 98.1 104 20 117/72 94 Intake and Output 04/05/16 04/05/16 04/06/16 15:00 23:00 07:00 Intake Total 1840 ml 1770 ml Balance 1840 ml 1770 ml Results Result Diagram: 04/06/16 0525 04/06/16 0525 Results 24 hrs Laboratory Tests Test 04/06/16 05:25 Anion Gap 12 Basophils # 0.0 Basophils % 0.5 Blood Morphology Comment Blood Urea Nitrogen 23 H Calcium Level 8.9 Carbon Dioxide Level 27 Chloride Level 107 Creatinine 1.38 H Eosinophils # 0.4 Eosinophils % 4.1 Glucose Level 110 Hematocrit 32.4 L Hemoglobin 10.9 L Lymphocytes # 1.5 Lymphocytes % 15.0 Magnesium Level 1.7 Mean Corpuscular Hemoglobin 30.0 Mean Corpuscular Hemoglobin Concent 33.5 Mean Corpuscular Volume 89.6 Mean Platelet Volume 6.6 L Monocytes # 0.5 Monocytes % 5.1 Neutrophils # 7.7 H Neutrophils % 75.3 Nucleated Red Blood Cells # 0.0 Nucleated Red Blood Cells % 0.0 Phosphorus Level 5.0 H Platelet Count 389 Potassium Level 5.1 Red Blood Count 3.61 L Red Cell Distribution Width 15.9 H Sodium Level 141 White Blood Count 10.2 Medications Medications Current Medications Ondansetron HCl (Zofran Inj) 4 mg Q6H PRN IV NAUSEA AND/OR VOMITING; Start at 17:30 Acetaminophen (Tylenol Tab) 650 mg Q6H PRN PO PAIN LEVEL 1-3 OR FEVER; Start at 17:30 Acetaminophen/ Hydrocodone Bitart ([place] (5/325)) 1 tab Q6H PRN PO MODERATE PAIN LEVEL 4-6 Last administered on 03/29/16 23:26; Admin Dose 1 TAB; Start at 17:30 Docusate Sodium 100 mg 100 mg Q12H PRN PO CONSTIPATION; Start 03/27/16 at 17:30 Sodium Chloride (1/2 NS) 1,000 ml @ 100 mls/hr Q10H IV Last administered on 04:36; Admin Dose 100 MLS/HR; Start 03/28/16 at 10:30 Ferrous Sulfate (Ferrous Sulfate (Ec)) 325 mg BID PO Last administered on 08:11; Admin Dose 325 MG; Start 03/31/16 at 12:00 Morphine Sulfate (morphine) 4 mg Q3H PRN IV SEVERE PAIN Last administered on 12:47; Admin Dose 4 MG; Start 04/01/16 at 12:00 Famotidine (Pepcid) 20 mg BID PO Last administered on 04/06/16 08:11; Admin Dose 20 MG; Start 04/03/16 at 21:00 Levofloxacin (Levaquin) 500 mg DAILY@06 PO Last administered on 04/06/16 06:03 ; Admin Dose 500 MG; Start 04/06/16 at 06:00 WILFRED LUU NP Apr 06, 2016 13:23
[2016-04-06 19:28] VITALS: BP 113/69; RESP 20
--- NOTE | 2016-04-06 20:47 | PN ---
DATE: 04/06/2016 SUBJECTIVE: Scrotal abscess and perirectal abscess, drained and packed with iodoform packing. The patient feels much better and his pain is much less. Culture from the scrotal abscess grew E. coli sensitive to Levaquin, and patient has been on Levaquin. OBJECTIVE: VITAL SIGNS: He is afebrile, temperature 98.1, pulse is 104, respiration 20, blood pressure 117/72. The patient weighs 198 kilograms and is 73 inches tall. ABDOMEN: Very obese. LABORATORY DATA: CBC shows a white count of 10.2, hemoglobin 10.9, hematocrit 32.4. BUN is 23, cre atinine 1.38. IMPRESSION: Scrotal abscess from acute left epididymitis and perirectal abscess. Both abscesses we re drained and packed with iodoform packing. PLAN: To continue to do the packing daily. The patient will ask the showcase trimmer to see if they ca n arrange for a home health nurse to visit him daily at home, and change the packing for at least e next 2 weeks, and then hopefully the wound will close by itself. The patient should, in the meant juan carlos, continue his Levaquin. Dictated By: KAROL PACHECO/MISAEL Conf#: [id number] DID#: [id number]
[2016-04-07] MEDS: SOD CHLORIDE 0.45% 1,000 ML IV SCH ×3 (00:09→10:30)
[2016-04-07] MEDS: morphine 4 MG/ML VIAL IV PRN ×5 (00:28→13:09)
[2016-04-07] MEDS: LEVOFLOXACIN 250 MG TAB PO SCH (05:50)
[2016-04-07 06:28] LABS: POTASSIUM 4.7 mmol/L (3.5-5.1)
[2016-04-07 06:31] LABS: CALCIUM 9.1 mg/dl (8.4-10.2); CREATININE 1.27 mg/dl (0.61-1.24)
[2016-04-07 06:46] LABS: MAGNESIUM 1.8 mg/dl (1.7-2.5); PHOSPHORUS 4.9 mg/dl (2.5-4.9)
[2016-04-07 06:55] LABS: BASOPHILS % 0.5 % (0.0-2.0); EOSINOPHILS # 0.5 10^3/ul (0.0-0.5); EOSINOPHILS % 4.6 % (0.0-7.0); HEMOGLOBIN 11.1 g/dl (14.0-18.0); LYMPHOCYTES # 1.8 10^3/ul (0.8-2.9); LYMPHOCYTES % 17.3 % (15.0-51.0); MEAN CORPUSCULAR HGB CONC 33.5 g/dl (32.0-37.0); MEAN CORPUSCULAR VOLUME 89.6 fl (82.0-101.0); MEAN PLATELET VOLUME 6.5 fl (7.4-10.4); MONOCYTE # 0.8 10^3/ul (0.3-0.9); MONOCYTES % 7.1 % (0.0-11.0); NEUTROPHIL # 7.5 10^3/ul (1.6-7.5); NEUTROPHILS % 70.5 % (39.0-77.0); PLATELET COUNT 387 10^3/UL (140-440); RED BLOOD COUNT 3.69 10^6/ul (4.70-6.10); RED CELL DISTRIBUTION WIDTH 15.6 % (11.5-14.5); UNCORRECTED WBC 10.6 10^3/ul (4.8-10.8); WHITE BLOOD COUNT 10.6 10^3/ul (4.8-10.8)
[2016-04-07 07:16] LABS: CONDITION 1; LH ANALYZER COMMENTS 1
[2016-04-07 08:03] VITALS: BP 122/66; RESP 22
[2016-04-07] MEDS: FERROUS SULFATE (EC) 325 MG TAB PO SCH (09:27)
[2016-04-07] MEDS: FAMOTIDINE 20 MG TAB PO SCH (09:27)
[2016-04-07] MEDS: SEVELAMER 800 MG TAB PO SCH ×3 (09:27→17:59)
--- NOTE | 2016-04-07 11:43 | CONS ---
Date/Time of Note Date/Time of Note DATE: 04/07/16 TIME: 11:42 Assessment/Plan Assessment/Plan Chief Complaint/Hosp Course Subjective: No events, alert, feels good, no fevers, nad Abx: Levaquin PHYSICAL EXAMINATION: GENERAL: This is a morbidly obese, middle-aged white man who is alert, in no distress. HEENT: Head atraumatic, normocephalic. Sclerae anicteric. Buccal mucosa pink. NECK: Obese. CHEST: Rise symmetrical. Breath sounds clear, diminished to bases. HEART: S1, S2. ABDOMEN: Obese with significant pannus. Bowel tones hypoactive. EXTREMITIES: Without cyanosis. SKIN: With significant pannus and significant scrotal edema, scrotal wound dsg. ASSESSMENT: 1. Scrotal abscess-s/p drainage 04/01==> cx + E coli 2. Morbid obesity. 3. Renal failure, acute on possibly chronic. PLAN: Remains stable, continue abx, continue wound care per urology [facility] staff Problems: Consultation Date/Type/Reason Admit Date/Time Mar 27, 2016 at 16:17 Initial Consult Date 03/28/16 Type of Consultation: id Referring Provider: SANJAY MEZA Exam/Review of Systems Vital Signs Vitals Vital Signs Date Time Temp Pulse Resp B/P Pulse Ox O2 Delivery O2 Flow Rate FiO2 04/07/16 08:03 97.5 107 22 122/66 93 Intake and Output 04/06/16 04/06/16 04/07/16 15:00 23:00 07:00 Intake Total 1250 ml 1590 ml Balance 1250 ml 1590 ml Results Result Diagram: 04/07/16 0525 04/07/16 0525 Results 24 hrs Laboratory Tests Test 04/07/16 05:25 Anion Gap 17 H Basophils # 0.0 Basophils % 0.5 Blood Morphology Comment Blood Urea Nitrogen 20 Calcium Level 9.1 Carbon Dioxide Level 26 Chloride Level 107 Creatinine 1.27 H Eosinophils # 0.5 Eosinophils % 4.6 Glucose Level 86 Hematocrit 33.0 L Hemoglobin 11.1 L Lymphocytes # 1.8 Lymphocytes % 17.3 Magnesium Level 1.8 Mean Corpuscular Hemoglobin 30.0 Mean Corpuscular Hemoglobin Concent 33.5 Mean Corpuscular Volume 89.6 Mean Platelet Volume 6.5 L Monocytes # 0.8 Monocytes % 7.1 Neutrophils # 7.5 Neutrophils % 70.5 Nucleated Red Blood Cells # 0.0 Nucleated Red Blood Cells % 0.0 Phosphorus Level 4.9 Platelet Count 387 Potassium Level 4.7 Red Blood Count 3.69 L Red Cell Distribution Width 15.6 H Sodium Level 145 H White Blood Count 10.6 Medications Medications Current Medications Ondansetron HCl (Zofran Inj) 4 mg Q6H PRN IV NAUSEA AND/OR VOMITING; Start at 17:30 Acetaminophen (Tylenol Tab) 650 mg Q6H PRN PO PAIN LEVEL 1-3 OR FEVER; Start at 17:30 Acetaminophen/ Hydrocodone Bitart ([place] (5/325)) 1 tab Q6H PRN PO MODERATE PAIN LEVEL 4-6 Last administered on 03/29/16 23:26; Admin Dose 1 TAB; Start at 17:30 Docusate Sodium 100 mg 100 mg Q12H PRN PO CONSTIPATION; Start 03/27/16 at 17:30 Sodium Chloride (1/2 NS) 1,000 ml @ 100 mls/hr Q10H IV Last administered on 03:32; Admin Dose 100 MLS/HR; Start 03/28/16 at 10:30 Ferrous Sulfate (Ferrous Sulfate (Ec)) 325 mg BID PO Last administered on 09:27; Admin Dose 325 MG; Start 03/31/16 at 12:00 Morphine Sulfate (morphine) 4 mg Q3H PRN IV SEVERE PAIN Last administered on 09:58; Admin Dose 4 MG; Start 04/01/16 at 12:00 Famotidine (Pepcid) 20 mg BID PO Last administered on 04/07/16 09:27; Admin Dose 20 MG; Start 04/03/16 at 21:00 Levofloxacin (Levaquin) 500 mg DAILY@06 PO Last administered on 04/07/16 05:50 ; Admin Dose 500 MG; Start 04/06/16 at 06:00 WILFRED LUU NP Apr 07, 2016 11:43
--- NOTE | 2016-04-07 11:45 | PDOCDIS ---
Discharge Instructions DIAGNOSIS Discharge Diagnosis: Left epididymitis and scrotal abscess. CONDITION Patient Condition: Stable HOME CARE INSTRUCTIONS: Special Diet: Carbohydrate controlled FOLLOW UP/APPOINTMENTS Appointments 1. Ra Mccormick MD Specialty: Urology Office Address: [id number] [place] [address] Office 2. Ricky Bess MD Specialty: Internal Medicine Office Address: [address] [place] [address] Office OTHER ORDERS: Other Orders: 1. Take medications as per prescription. 2. Take a carbohydrate controlled, preferably low-cholesterol diet. 3. Activities as tolerated. 4. Follow-up with urology [Dr. Mccormick] as scheduled. 5. Follow-up with your primary care physician in one week. If you do not have a primary care physician, please call Dr. Ricky Bess's office for appointment. Have your primary care physician arrange for outpatient nephrology follow-up. ANASTASIA HIGH NP Apr 07, 2016 11:45
[2016-04-07] MEDS ORDERED: HYDR-3498 PO (11:47)
[2016-04-07] MEDS ORDERED: LEVO250T35 PO (11:47)
[2016-04-07] MEDS ORDERED: FER325 PO (11:47)
[2016-04-07] MEDS ORDERED: SEVE800T10 PO (11:47)
[2016-04-07] MEDS: HYDROCODONE/APAP (5/325) TAB PO PRN (12:43)
--- NOTE | 2016-04-07 13:39 | CONS ---
Date/Time of Note Date/Time of Note DATE: 04/07/16 TIME: 13:38 Assessment/Plan Assessment/Plan Additional Assessment/Plan (1) Anemia/LEIGH Status: Chronic Cont Iron Rx (2) Scrotal Epidydimitis with abscess. S/p I & D Comment: Consult reviewed. (3) MERISSA vs CKD (chronic kidney disease) stage 3, GFR 30-59 ml/min Comment: etiology could be nephrosclerosis and Acute component Vanco Induced. (4) Obesity Status: Chronic Additional Assessment/Plan Hyperkalemia, Resolved Renal function improved and stable Phos Binder tid with meals. DC planning as per Hospitalist Pt will f/u in my office in 1-2 weeks upon discharge Consultation Date/Type/Reason Admit Date/Time Mar 27, 2016 at 16:17 Initial Consult Date 03/28/16 Type of Consultation: Nephrology Referring Provider: SANJAY MEZA 24 HR Interval Summary Constitutional: No requiring O2 Exam/Review of Systems Vital Signs Vitals Vital Signs Date Time Temp Pulse Resp B/P Pulse Ox O2 Delivery O2 Flow Rate FiO2 04/07/16 08:03 97.5 107 22 122/66 93 Intake and Output 04/06/16 04/06/16 04/07/16 15:00 23:00 07:00 Intake Total 1250 ml 1590 ml Balance 1250 ml 1590 ml Exam Constitutional: No distress ENMT: mucosa pink and moist Respiratory: No labored breathing Cardiovascular: regular rate and rhythm Neurological: No lethargic Results Result Diagram: 04/07/16 0525 04/07/16 0525 Results 24 hrs Laboratory Tests Test 04/07/16 05:25 Anion Gap 17 H Basophils # 0.0 Basophils % 0.5 Blood Morphology Comment Blood Urea Nitrogen 20 Calcium Level 9.1 Carbon Dioxide Level 26 Chloride Level 107 Creatinine 1.27 H Eosinophils # 0.5 Eosinophils % 4.6 Glucose Level 86 Hematocrit 33.0 L Hemoglobin 11.1 L Lymphocytes # 1.8 Lymphocytes % 17.3 Magnesium Level 1.8 Mean Corpuscular Hemoglobin 30.0 Mean Corpuscular Hemoglobin Concent 33.5 Mean Corpuscular Volume 89.6 Mean Platelet Volume 6.5 L Monocytes # 0.8 Monocytes % 7.1 Neutrophils # 7.5 Neutrophils % 70.5 Nucleated Red Blood Cells # 0.0 Nucleated Red Blood Cells % 0.0 Phosphorus Level 4.9 Platelet Count 387 Potassium Level 4.7 Red Blood Count 3.69 L Red Cell Distribution Width 15.6 H Sodium Level 145 H White Blood Count 10.6 Medications Medications Current Medications Ondansetron HCl (Zofran Inj) 4 mg Q6H PRN IV NAUSEA AND/OR VOMITING; Start at 17:30 Acetaminophen (Tylenol Tab) 650 mg Q6H PRN PO PAIN LEVEL 1-3 OR FEVER; Start at 17:30 Acetaminophen/ Hydrocodone Bitart ([place] (5/325)) 1 tab Q6H PRN PO MODERATE PAIN LEVEL 4-6 Last administered on 04/07/16 12:43; Admin Dose 1 TAB; Start at 17:30 Docusate Sodium 100 mg 100 mg Q12H PRN PO CONSTIPATION; Start 03/27/16 at 17:30 Sodium Chloride (1/2 NS) 1,000 ml @ 100 mls/hr Q10H IV Last administered on 03:32; Admin Dose 100 MLS/HR; Start 03/28/16 at 10:30 Ferrous Sulfate (Ferrous Sulfate (Ec)) 325 mg BID PO Last administered on 09:27; Admin Dose 325 MG; Start 03/31/16 at 12:00 Morphine Sulfate (morphine) 4 mg Q3H PRN IV SEVERE PAIN Last administered on 13:09; Admin Dose 4 MG; Start 04/01/16 at 12:00 Famotidine (Pepcid) 20 mg BID PO Last administered on 04/07/16 09:27; Admin Dose 20 MG; Start 04/03/16 at 21:00 Levofloxacin (Levaquin) 500 mg DAILY@06 PO Last administered on 04/07/16 05:50 ; Admin Dose 500 MG; Start 04/06/16 at 06:00 RAISA COSBY MD Apr 07, 2016 13:39
--- NOTE | 2016-04-07 14:36 | DS ---
DATE OF ADMISSION: 03/27/2016 DATE OF DISCHARGE: 04/07/2016 FINAL DIAGNOSES: 1. Left epididymitis and scrotal abscess. Status post incision and drainage on 04/01/2016. 2. Chronic kidney disease. 3. Normocytic normochromic anemia. 4. Iron deficiency. 5. Prediabetes. Hemoglobin A1c 6.4. 6. Morbid obesity. BMI of 57.6 kg/m2. 7. Status post sepsis secondary to left epididymitis and left scrotal abscess. CONSULTATIONS: 1. Dr. Ra Mccormick, Urology. 2. Dr. Benny Schultz, Nephrology. 3. Dr. Christian Lay, Nephrology. 4. Dr. Abdelrahman Jimenez, Infectious Diseases. HOSPITAL COURSE: This is a 50-year-old male with past medical history of morbid obesity and history of recent gluteal cellulitis status post IV antibiotics. He presents to the emergency room with chief complaint of left scrotal pain. The patient initially presented to [facility] and was transferred to [facility] for insurance purposes. The patient was admitted to inpatient medical/surgical floor. An infectious disease consult , a nephrology consult, and a urology consult were called on this patient. The patient was started on empiric antibiotics. Pancultures were ordered on this patient. The patient was seen and evaluated by urology. The patient underwent a testicular ultrasound that showed diffusely heterogenous enlarged left testis with marked overlying skin thickening. The patient underwent an incision and drainage of the left scrotal abscess on 04/01/2016. The patient's scrotal fluid culture showed positive E. coli. The patient was maintained on antibiotics as per infectious disease. The patient had no evidence of any septic shock. The patient has underlying chronic kidney disease. Nephrology was following the patient. Nephrotoxic drugs were used with caution on this patient. On admission the patient had a creatinine of 2.04, with the latest creatinine of 1.27. The patient had no evidence of any significant uremia or encephalopathic changes that necessitated any hemodialysis. The patient was noticed to have normocytic, normochromic anemia. The patient's iron panel showed low iron level , low iron saturation, and low TIBC. The patient was maintained on iron supplements for the same. The patient was noticed to have underlying prediabetes with a hemoglobin A1c 6.4. The patient ideally needs to be started on metformin. However, because of elevated renal function, the patient is not a candidate for metformin. The patient's blood sugars were fairly well controlled throughout the patient's hospital course. The patient was noticed to be morbidly obese with a BMI of 57.6 kg/m2. The patient was advised on weight reduction. The patient's fasting lipid panel was satisfactory. The patient had a prolonged hospital course because of the need for daily dressing changes of the scrotum with the urologist. The patient also underwent a CT scan of the abdomen and pelvis on 04/05/2016 to evaluate extent of infectious process. This CT scan showed left sided scrotal skin ulcer with gas extending superiorly in the left side of the scrotum, subcutaneous adipose tissue with no extension of gas into the inguinal canal or spermatic cord sheath. The patient was finally cleared by consultants to be discharged home. DISCHARGE DISPOSITION AND PLAN: The patient discharged home today. The patient was instructed to take medications as per prescription. He was instructed too take a carbohydrate controlled, preferably low-cholesterol diet. He was instructed to resume activities as tolerated. He was instructed to follow up with Dr. Mccormick as scheduled. He was instructed to follow up with his primary care physician in 1 week and if he does not have a primary care physician to please call for Dr. Ricky Bess's office. He was instructed to have his primary care physician arrange for outpatient nephrology followup. Case management arranged home health for daily dressing changes of the left scrotum for 2 weeks. The patient verbalized understanding of his discharge instructions. CONDITION AT DISCHARGE: Stable. DISCHARGE MEDICATIONS: 1. Ferrous sulfate 325 mg p.o. b.i.d. 2. [place] 5/325 one tablet p.o. q.6 hours p.r.n. pain (#20 tablets). 3. Levaquin 500 mg p.o. daily x14 days (Ideally, the patient needs to be on 750 mg or more daily for antibiotic therapy based on his BMI. However, because of the borderline renal function, the patient has been dosed at 500 mg p.o. daily). 4. Renvela 800 mg p.o. with meals. PERTINENT LABORATORY AND DIAGNOSTIC DATA: 1. Testicular ultrasound. Normal right testis. Diffusely heterogenous enlarged left testis with marked overlying skin thickening. This may indicate orchitis or testicular mass. 2. Renal ultrasound. Right kidney larger than the left kidney. Nonobstructing renal calculi in the mid right kidney measuring up to 1.2 cm. Empty urinary bladder. 3. Chest x-ray. Cardiomegaly. Clear lungs. 4. CT scan of the abdomen and pelvis. Suboptimal images due to large size of the patient. Small benign calcified granuloma of the left lung base. Possible gallstones in the gallbladder. No evidence of cholecystitis. Atrophic left kidney. Marked scrotal wall edema and thickening of the wall of the scrotum, predominantly due to adipose tissue. Left-sided scrotal skin ulcer with gas extending superiorly in the left side of the scrotum subcutaneous adipose tissue. Gas does not extend into the inguinal canal or spermatic cord sheath. Diverticulosis of the descending and sigmoid colon. Degenerative changes of the lumbar spine. 5. Scrotal fluid culture. Positive for E. coli. 6. Latest CBC: WBC 12.3, hemoglobin 10.6, hematocrit 32.5, platelet count 355. 7. Latest BMP: Sodium 145, potassium 4.7, chloride 107, carbon dioxide 26, anion gap 17, BUN 20, creatinine 1.27, glucose 86, calcium 9.0, phosphorus 4.9, magnesium 1.8. 8. Hemoglobin A1c 6.4. 9. Iron panel: Iron 20, TIBC 240, iron saturation 8. 10. Fasting lipid panel: Triglycerides 65, total cholesterol 135, LDL 92, HDL 30. At this time, I would like to thank all the consultants for seeing the patient, doing the necessary procedures, and providing clinical recommendations. The case and management of this patient was fully discussed with Dr. Blount. Approximately 40 minutes was spent on coordinating the discharge on this patient. ANASTASIA BLOUNT MD AM/NTS Conf#: [id number] DID#: [id number] CC: KAISER YATES MD;*EndCC* MTDD
== END 2016-04-07 18:33 | disposition home or self-care (01) | DRG 728 ==
LOC: REC 12:46 → UNDOADMIN 12:46 → MS2 16:17
PROVIDERS: ADMIT Family Medicine; ATTEND Family Medicine
PROC: 0H9AXZZ Drainage of Inguinal Skin, External Approach (ICD-10-PCS; principal; 2016-04-01)
DX: N49.2 Inflammatory disorders of scrotum (principal); N17.9 Acute kidney failure, unspecified; N18.3 Chronic kidney disease, stage 3 (moderate); Z68.43 Body mass index [BMI] 50.0-59.9, adult; N45.1 Epididymitis; E66.01 Morbid (severe) obesity due to excess calories; D64.9 Anemia, unspecified; D50.9 Iron deficiency anemia, unspecified; R73.03 Prediabetes
CPT/HCPCS: 71010; 74176; 76775; 76870; 80048; 80061; 80202; 81001; 81003; 82575; 83036; 83540; 83735; 83935; 84100; 84155; 84156; 84300; 84436; 84479; 85025; 87070; 87081; 87086; 90686; J0690; J1956; J2270; J2916; J3370; J7050

== ENCOUNTER 2017-06-22 14:21 | Emergency (ER) | END 2017-06-22 15:00 | disposition home or self-care (01) ==

== ENCOUNTER 2017-12-29 21:36 | Emergency (ER) | END 2017-12-29 23:45 | disposition home or self-care (01) ==

== ENCOUNTER 2018-01-10 09:57 | Emergency (ER) | END 2018-01-10 15:22 | disposition home or self-care (01) ==

== ENCOUNTER 2018-01-11 16:11 | Inpatient (IN) | END 2018-01-15 16:20 | disposition home or self-care (01) | DRG 872 ==

== ENCOUNTER 2018-05-19 23:14 | Inpatient (IN) | payer OTHER ==
[~2018-05-19] VITALS: Ht 185.4 cm; Wt 178.2 kg
[~2018-05-19 23:14] MED LIST: AMIO200T4 PO; CARV12.579 PO; HYDR-842 PO; IBUP-1542 PO; LISI-471 PO; SULF1TAB31 PO
[2018-05-19 23:19] VITALS: Ht 185.4 cm; Wt 178.2 kg
[2018-05-20] VITALS (38 sets, daily range): BP systolic 77–155; BP diastolic 43–81; PULSE 68–78; RESP 12–25
[2018-05-20] MEDS ORDERED: morphine 4 MG/ML VIAL IV STA (03:55)
[2018-05-20] MEDS: SOD CHLORIDE 0.9% 1,000 ML IV STA ×2 (03:55→04:21)
[2018-05-20] MEDS ORDERED: ONDANSETRON 4 MG INJ IV STA ×3 (03:55→07:01)
[2018-05-20] MEDS ORDERED: CEFEPIME 2GM/50 ML (PMX) 50 ML IVPB STA (04:10)
[2018-05-20] MEDS ORDERED: SODIUM CHLORIDE 0.9% 1L BAG IV* STA (04:10)
[2018-05-20] MEDS ORDERED: VANCOMYCIN 1 GM (PMX) 250 ML IVPB ONE (04:30)
--- NOTE | 2018-05-20 05:04 | ERD ---
ER Documentation Chief Complaint Chief Complaint RASH ON LEFT BUTTOCK HPI This is a 52-year-old male comes in with complaints of swelling and erythema on the inner side of his buttock that started a few days ago with at least a 20 no ticed. Is also had alternating fevers and chills but he said it hurts to defecate because of this it area. Patient does have history of possible diabetes, he says he is not because he does not follow regularly with a doctor. Overall patient is a very very poor historian and history is limited ROS All systems reviewed and are negative except as per history of present illness. Medications Home Meds Active Scripts Sulfamethoxazole/Trimethoprim* (Bactrim Ds* Tablet) 1 Each Tablet, 1 TAB PO DAILY for 7 Days, #14 TAB Prov:SARAH BURNS 01/14/18 Ibuprofen* (Motrin*) 600 Mg Tab, 600 MG PO Q8 PRN for PAIN AND/OR INFLAMMATION, #30 TAB Prov:TALAT SANDRA MD 01/10/18 Reported Medications Hydroxyzine Hcl* (Atarax*) 25 Mg Tab, 25 MG PO Q8 PRN for ITCHING, TAB 01/10/18 Carvedilol* (Carvedilol*) 12.5 Mg Tablet, 18.75 MG PO BID, #60 TAB 01/10/18 Lisinopril* (Lisinopril*) 20 Mg Tablet, 20 MG PO DAILY, #30 TAB 01/10/18 Amiodarone Hcl* (Amiodarone Hcl*) 200 Mg Tablet, 200 MG PO DAILY, #30 TAB 01/10/18 Allergies Allergies: Coded Allergies: No Known Allergy (Unverified , 03/27/16) PMhx/Soc History of Surgery: Yes (ORAL SURGERY) Anesthesia Reaction: No Hx Neurological Disorder: No Hx Respiratory Disorders: Yes Hx Cardiac Disorders: Yes (CHF) Hx Psychiatric Problems: No Hx Miscellaneous Medical Probl: Yes (ACUTE RENAL FAILURE, "WOUND" PROBLEM) Hx Alcohol Use: Yes (OCCASIONAL DRINKS) Hx Substance Use: No Hx Tobacco Use: No Physical Exam Vitals Vital Signs Date Temp Pulse Resp B/P (MAP) Pulse Ox O2 O2 Flow FiO2 Time Delivery Rate 05/20/18 2.0 04:00 05/19/18 101.4 113 20 115/73 96 23:19 (87) Physical Exam Const: No acute distress Head: Atraumatic Eyes: Normal Conjunctiva ENT: Normal External Ears, Nose and Mouth. Neck: Full range of motion. No meningismus. Resp: Clear to auscultation bilaterally Cardio: Regular rate and rhythm, no murmurs Abd: Soft, non tender, non distended. Normal bowel sounds Skin: No petechiae or rashes Back: No midline or flank tenderness Ext: No cyanosis, or edema Neur: Awake and alert Psych: Normal Mood and Affect Result Diagram: 05/20/1842305/20/18423 Results 24 hrs Laboratory Tests Test 05/20/18 04:17 05/20/18 04:19 05/20/18 04:24 POC Venous Lactate 1.9 mmol/L Prothrombin Time 14.6 Sec Prothrombin Time Ratio 1.1 INR International Normalized Ratio 1.13 Activated Partial Thromboplast 31.5 Sec Time White Blood Count 14.2 10^3/ul Red Blood Count 4.67 10^6/ul Hemoglobin 14.9 g/dl Hematocrit 45.0 % Mean Corpuscular Volume 96.4 fl Mean Corpuscular Hemoglobin 31.9 pg Mean Corpuscular 33.1 g/dl Hemoglobin Concent Red Cell Distribution Width 12.5 % Platelet Count 254 10^3/UL Mean Platelet Volume 9.7 fl Immature Granulocytes % 0.600 % Neutrophils % 80.9 % Lymphocytes % 8.1 % Monocytes % 9.9 % Eosinophils % 0.1 % Basophils % 0.4 % Nucleated Red Blood Cells % 0.0 /100WBC Immature Granulocytes # 0.090 10^3/ul Neutrophils # 11.5 10^3/ul Lymphocytes # 1.2 10^3/ul Monocytes # 1.4 10^3/ul Eosinophils # 0.0 10^3/ul Basophils # 0.1 10^3/ul Nucleated Red Blood Cells # 0.0 10^3/ul Sodium Level 141 mmol/L Potassium Level 4.5 mmol/L Chloride Level 102 mmol/L Carbon Dioxide Level 24 mmol/L Anion Gap 15 Blood Urea Nitrogen 39 mg/dl Creatinine 2.51 mg/dl Est Glomerular Filtrat Rate mL/min 27 mL/min Glucose Level 95 mg/dl Calcium Level 9.2 mg/dl Total Bilirubin 2.2 mg/dl Direct Bilirubin 0.00 mg/dl Indirect Bilirubin 2.2 mg/dl Aspartate Amino Transf (AST/SGOT) 32 IU/L Alanine 31 IU/L Aminotransferase (ALT/SGPT) Alkaline Phosphatase 71 IU/L Total Protein 7.0 g/dl Albumin 3.8 g/dl Globulin 3.20 g/dl Albumin/Globulin Ratio 1.18 Lipase 68 U/L Current Medications Medications Dose Sig/Greta Start Time Status Last (Trade) Ordered Route PRN Stop Time Admin Dose Reason Admin Sodium 1,000 ml @ Q1H STAT 05/20/18 DC 05/20/18 Chloride 1,000 mls/hr IV 03:55 04:21 05/20/18 04:54 Morphine 4 mg ONCE STAT 05/20/18 DC 05/20/18 Sulfate IV 03:55 04:22 (morphine) 05/20/18 03:56 Ondansetron 4 mg ONCE STAT 05/20/18 DC 05/20/18 HCl (Zofran IV 03:55 04:21 Inj) 05/20/18 03:56 Sodium 5,350 ml BOLUS OVER 2 05/20/18 DC 05/20/18 Chloride HOURS STAT 04:10 04:21 (NS) IV* 05/20/18 04:11 Cefepime HCl 50 ml @ ONCE STAT 05/20/18 DC 05/20/18 100 mls/hr IVPB 04:10 04:25 05/20/18 04:39 Vancomycin 250 ml @ ONCE ONCE 05/20/18 HCl 125 mls/hr IVPB 04:30 05/20/18 06:29 Procedures/MDM EKG: Rate/Rhythm: [Normal Sinus Rhythm] QRS, ST, T-waves: [No changes consistent w/ acute ischemia] Impression: [No evidence of ischemia or arrhythmia] Chest X-ray 1V Interpreted by me: Soft Tissue: No acute abnormalities Bones: No acute abnormalities Mediastinum/Cardiac Silhouette/Lungs: [No acute abnormalities] Medical decision making: Patient has evidence of rectal versus perirectal abscess. Given his obese size, and a high chance of spread of infection, patient will be admitted for further evaluation and management. Dr. Sykes can accept the patient to service. Dr. Ernandez will consult for surgery Departure Diagnosis: Primary Impression: Cellulitis of buttock, left Condition: Serious TAVIA GIRON May 20, 2018 05:04
[2018-05-20] MEDS ORDERED: ALBUTEROL 0.083% (NEB) 2.5 MG/3 ML AMP NEB STA (05:42)
[2018-05-20] MEDS ORDERED: IPRATROPIUM (NEB) 0.5 MG/2.5 ML AMP NEB STA (05:42)
--- NOTE | 2018-05-20 06:43 | HP ---
Date/Time of Note Date/Time of Note DATE: 05/20/18 TIME: 06:33 Assessment/Plan VTE Prophylaxis SCD applied (from Nsg): Yes Pharmacological prophylaxis: NA/contraindicated Pharm contraindication: low risk/ambulating Lines/Catheters IV Catheter Type (from Nrsg): Saline Lock Assessment/Plan Hospital Course This is a 51-year-old male being admitted to the [facility] for: #1Sepsis: -Secondary to left buttock cellulitis and/or possible abscess vancomycin and Zosyn, renally dose -We will check lactic acid -The patient did receive aggressive IV fluid hydration in the ED, will hold off on further fluids at the current time. #2 left buttock cellulitis and/or abscess: -There is diffuse redness and erythema of the left buttocks and an area of tenderness and induration of the lower buttocks -Given patient's creatinine will hold off on CT scan with contrast at the current time, will defer to general surgery if imaging study may be needed. Will order a Botox ultrasound. - Daily packing -On antibiotics #3 Acute on chronic kidney injury: -Previous creatinine is 1.4 now it is 2.4, likely secondary to sepsis, CHICHO inhibitor effect, hemodynamics, fever, renally dose antibiotics. will hold CHICHO inhibitor at the current time -May be prerenal from sepsis and dehydration versus antibiotics. -Renal ultrasound, renal studies, consult nephrology Dr. Kulkarni - #4 HTN - Continue coreg - Hold lisinopril in setting of acute on chronic CKD #5 GAVINO - Continue nighttime BiPAP after confirming settings. #6 DVT GI prophylaxis: SCDs, no GI prophylaxis indicated Further treatment strategy will be implemented as per the clinical course. Result Diagram: 05/20/18 0424 05/20/18 0424 Results 24hrs Laboratory Tests Test 05/20/18 04:17 05/20/18 04:19 05/20/18 04:24 05/20/18 04:56 POC Venous 1.9 Lactate Prothrombin Time 14.6 Prothrombin Time 1.1 Ratio INR International 1.13 Normalized Ratio Activated 31.5 Partial Thrombopl ast Time Troponin I 0.013 White Blood Count 14.2 #H Red Blood Count 4.67 L Hemoglobin 14.9 Hematocrit 45.0 Mean Corpuscular 96.4 Volume Mean Corpuscular 31.9 Hemoglobin Mean Corpuscular 33.1 Hemoglobin Concen t Red Cell 12.5 Distribution Width Platelet Count 254 Mean Platelet 9.7 Volume Immature 0.600 H Granulocytes % Neutrophils % 80.9 H Lymphocytes % 8.1 L Monocytes % 9.9 Eosinophils % 0.1 Basophils % 0.4 Nucleated Red 0.0 Blood Cells % Immature 0.090 H Granulocytes # Neutrophils # 11.5 H Lymphocytes # 1.2 Monocytes # 1.4 H Eosinophils # 0.0 Basophils # 0.1 Nucleated Red 0.0 Blood Cells # Sodium Level 141 Potassium Level 4.5 Chloride Level 102 Carbon Dioxide 24 Level Anion Gap 15 H Blood Urea 39 H Nitrogen Creatinine 2.51 H Est Glomerular 27 L Filtrat Rate mL/min Glucose Level 95 Calcium Level 9.2 Total Bilirubin 2.2 H Direct Bilirubin 0.00 Indirect 2.2 H Bilirubin Aspartate Amino 32 Transf (AST/SGOT) Alanine 31 Aminotransferase (ALT/SGPT) Alkaline 71 Phosphatase Total Protein 7.0 Albumin 3.8 Globulin 3.20 Albumin/Globulin 1.18 Ratio Lipase 68 Urine Color SOURAV Urine Clarity SLIGHTLY CLOUDY A Urine pH 5.0 Urine Specific 1.017 [place] Urine Ketones NEGATIVE Urine Nitrite NEGATIVE Urine Bilirubin NEGATIVE Urine 2+ H Urobilinogen Urine Leukocyte NEGATIVE Esterase Urine Microscopic 2 RBC Urine Microscopic 3 WBC Urine Mucus FEW A Urine Hemoglobin NEGATIVE Urine Glucose NEGATIVE Urine Total 1+ H Protein HPI/ROS Admit Date/Time Admit Date/Time Hx of Present Illness Chief complaint: Fever since Sunday, left buttocks pain This is a 52-year-old male with a past medical history of ROS Const: As per HPI Eyes : No pain discharge or redness or change in visual acuity ENT: No pain, sore throat, congestion, congestion, dysphagia or discharge Respiratory: No shortness of breath, cough, sputum, wheezing, or pleuritic pain Cardiovascular: No chest pain, palpitation, PND, or edema GI : no change in appetite, abdominal pain, nausea, vomiting, diarrhea, constipation, or change in the color his stool Genitourinary: No dysuria, hematuria, flank pain , discharge or CVA tenderness Musculoskeletal: No joint pain, back pain, neck pain, restricted range of motion in neck or joints Skin: As per HPI Neuro: No headache, dizziness, syncope, seizure, focal weakness Endocrine: No polyuria, polydipsia, temperature intolerance Psych: No hallucination, depression, anxiety or suicidal ideation PMH/Family/Social Past Medical History CKD Obstructive sleep apnea requiring home BiPAP Heart ailure Morbid obesity Buttocks abscess Coded Allergies: No Known Allergy (Unverified , 03/27/16) Past Surgical History Scrotal abscess drainage 03/2016. Cataract surgery. Past Surgical Hx: other Family History Significant Family History: diabetes Social History Alcohol Use: rarely Smoking Status: Never smoker Drug Use: marijuana Exam/Review of Systems Vital Signs Vitals Vital Signs Date Temp Pulse Resp B/P (MAP) Pulse Ox O2 O2 Flow FiO2 Time Delivery Rate 05/20/18 90 20 99 Nasal 2.0 06:14 Cannula 05/20/18 99.3 105/67 04:30 (80) Exam Exam General: Patient is a pleasant male currently lying in bed in mild distress from left buttocks pain HEENT: Atraumatic, normocephalic. The pupils are equal, round and reactive. Extraocular motor are intact Neck: Supple with full range of motion. No rigidity or meningismus Chest: Nontender Lungs: Clear to auscultation bilaterally no crackles rales or wheezing Heart: Normal S1-S2, Regular rhythm and rate. Abdomen: Soft , nontender, nondistended , bowel sounds are present. No guarding no rebound tenderness , No masses or organomegaly. No costovertebral temporal angle mass Extremities: Normal to inspection, no edema no cyanosis Skin: Diffuse redness of the left buttocks and tenderness to palpation and warmth, questionable area of induration near the lower buttocks Neurologic: Normal mental status, speech normal, cranial nerves II through XII are intact, motor and sensory are intact, no focal weakness Additional Comments PROCEDURE: Chest x-ray CLINICAL INDICATION: Possible sepsis. TECHNIQUE: VIEWS: 1 COMPARISON: CR CHEST 04/21/2017; CR CHEST 04/17/2017; CR CHEST 03/29/2016 FINDINGS: SUPPORT DEVICES: None CARDIAC AND MEDIASTINAL SILHOUETTES: Stable cardiomegaly . LUNGS AND PLEURAL SPACE: Diminished lung volumes . No infiltrates, consolidation, pulmonary edema or pleural effusion. PNEUMOTHORAX: None. OSSEOUS STRUCTURES: Unremarkable. IMPRESSION: 1. No acute pulmonary disease. 2. Stable cardiomegaly. RPTAT: HRSR Roberty Redlich, Physician Date Time Electronically viewed and signed by Jared Peters, Physician on 05/20/2018 05:21 RR/ CC: TAVIA GIRON [phone] [facility] May 20, 2018 06:43
[2018-05-20] MEDS ORDERED: HYDROCODONE/APAP (5/325) TAB PO PRN (07:00)
[2018-05-20] MEDS ORDERED: VANCOMYCIN IV PER PHARMACY XX SCH (07:00)
[2018-05-20] MEDS ORDERED: BISACODYL (EC) 5 MG TAB PO PRN (07:00)
[2018-05-20] MEDS ORDERED: NACL 0.9% 3 ML SYG IV SCH (07:00)
[2018-05-20] MEDS ORDERED: DOCUSATE SODIUM 100 MG CAP PO PRN (07:00)
[2018-05-20] MEDS ORDERED: FUROSEMIDE 40 MG INJ IV ONE (07:00)
[2018-05-20] MEDS ORDERED: LEVALBUTEROL (NEB) 1.25 MG/0.5 ML AMP HHN PRN (07:00)
[2018-05-20] MEDS ORDERED: ACETAMINOPHEN 325 MG TAB PO PRN (07:00)
[2018-05-20] MEDS ORDERED: EPHEDrine SULFATE 50 MG/5 ML SYG ONE (07:00)
[2018-05-20] MEDS: AMIODARONE 200 MG TAB PO SCH (09:00)
[2018-05-20] MEDS: PIPER-TAZO 2.25 GM (PMX) 50 ML IVPB SCH ×2 (10:13→21:00)
--- NOTE | 2018-05-20 10:54 | QN ---
Documentation Comment Observation Note: Time: 4 hours Family Hx: Negative for diabetes Evaluation: Multiple exams showed improving symptoms and no evidence of clinical decompensation. MATILDE GALINDO MD May 20, 2018 10:54
--- NOTE | 2018-05-20 12:10 | PREAC ---
Date/Time of Note Date/Time of Note DATE: 05/20/18 TIME: 11:57 Anesthesia Eval and Record Evaluation Time Pre-Procedure Interview DATE: 05/20/18 TIME: 11:57 Age 52 Sex male NPO: 8 hrs Preoperative diagnosis Perianal Abscess Planned procedure I & D of Perianal abscess Past Medical History Past Medical History: Includes Cardio: HTN, CHF Pulm: Sleep Apnea, Home CPAP Renal: CKD GI: Morbid obesity Recreational drugs: Marijuana (3 times a week) Surgery & Anesthesia Issues No known issue Meds Anticoagulation: No Beta Shadia within 24 hr: No Reason Beta Shadia not given: Pt. not on B-Shadia Active Scripts Sulfamethoxazole/Trimethoprim* (Bactrim Ds* Tablet) 1 Each Tablet, 1 TAB PO DAILY for 7 Days, #14 TAB Prov:SARAH BURNS 01/14/18 Ibuprofen* (Motrin*) 600 Mg Tab, 600 MG PO Q8 PRN for PAIN AND/OR INFLAMMATION, #30 TAB Prov:TALAT SANDRA MD 01/10/18 Reported Medications Hydroxyzine Hcl* (Atarax*) 25 Mg Tab, 25 MG PO Q8 PRN for ITCHING, TAB 01/10/18 Carvedilol* (Carvedilol*) 12.5 Mg Tablet, 18.75 MG PO BID, #60 TAB 01/10/18 Lisinopril* (Lisinopril*) 20 Mg Tablet, 20 MG PO DAILY, #30 TAB 01/10/18 Amiodarone Hcl* (Amiodarone Hcl*) 200 Mg Tablet, 200 MG PO DAILY, #30 TAB 01/10/18 Current Medications IV Flush (NS 3 ml) 3 ml PER PROTOCOL IV ; Start 05/20/18 at 07:00 Acetaminophen (Tylenol Tab) 650 mg Q6H PRN PO .PAIN 1-3 OR TEMP Last administered on 05/20/18at 06:58; Admin Dose 650 MG; Start 05/20/18 at 07:00 Acetaminophen/ Hydrocodone Bitart ([place] (5/325)) 1 tab Q6H PRN PO .MOD PAIN 4- 6; Start 05/20/18 at 07:00 Morphine Sulfate (morphine) 2 mg Q4H PRN IV .SEVERE PAIN 7-10; Start 05/20/18 at 07:00 Docusate Sodium (Colace) 100 mg Q12H PRN PO .CONSTIPATION; Start 05/20/18 at 07:00 Bisacodyl (Dulcolax) 5 mg DAILY PRN PO .CONSTIPATION; Start 05/20/18 at 07:00 Piperacillin Sod/ Tazobactam Sod 50 ml @ 100 mls/hr Q12 IVPB Last administered on 05/20/18at 10:13; Admin Dose 100 MLS/HR; Start 05/20/18 at 09:00 Vancomycin HCl (Vanco Iv Per Pharmacy) VANCOMYCIN PER PHARMACY PER PROTOCOL XX ; Start 05/20/18 at 07:00 Levalbuterol (Xopenex Neb) 1.25 mg Q4H RESP THERAPY PRN HHN SHORTNESS OF BREATH; Start 05/20/18 at 07:00 Amiodarone HCl (Cordarone) 200 mg DAILY PO ; Start 05/20/18 at 09:00 Carvedilol (Coreg) 18.75 mg BID PO ; Start 05/20/18 at 09:00 Meds reviewed: Yes Allergies Coded Allergies: No Known Allergy (Unverified , 03/27/16) Allergies Reviewed: Yes Labs/Studies Labs Reviewed: Reviewed by anesthesiologist Result Diagram: 05/20/18 0424 05/20/18 0424 Laboratory Tests 05/20/18 04:24 test: N/A Studies: ECG (ist degree AV block, low voltage) Pre-procedure Exam Last vitals Vital Signs Date Temp Pulse Resp B/P (MAP) Pulse Ox O2 O2 Flow FiO2 Time Delivery Rate 05/20/18 98.9 81 20 93/59 (70) 100 Nasal 2.0 11:30 Cannula Airway: Adequate mouth opening, Adequate thyromental dist Mallampati: Mallampati III Teeth: Normal Lung: Normal Heart: Normal ASA Physical Status ASA physical status: 3 Emergency: E Planned Anesthetic General/MAC: ETT Neuraxial: Spinal Planned Pain Management Sub-arachniod narcotics, Parenteral pain med Pre-operative Attestations Prior to commencing anesthesia and surgery, the patient was re-evaluated, there was verification of: *The patient's identity *The results of appropriate recent lab work and preoperative vital signs *The above evaluation not changing prior to induction *Anesthetic plan, risk benefits, alternative and complications discussed with patient/family; questions answered; patient/family understands, accepts and wishes to proceed. REYNALDO STEPHENSON MD May 20, 2018 12:10
--- NOTE | 2018-05-20 12:11 | CONS ---
Assessment/Plan Assessment/Plan Assessment/Plan (Daily) Left perianal abscess and cellulitis Plan: Incision and drainage Consultation Date/Type/Reason Admit Date/Time Date of Consultation: May 20, 2018 Type of Consult General surgery Reason for Consultation Left perianal and left buttock abscess Date/Time of Note DATE: 05/20/18 TIME: 12:08 Hx of Present Illness The patient is a 52-year-old morbidly obese gentleman with a BMI of 51.8. He presents with 3 days of increasing pain in the left perianal area and buttock. In the emergency room he was evaluated and noted to have cellulitis and probable abscess. Surgical consultation was requested in that regard. He has had a low- grade fever but no chills. Review of systems: Head ears eyes nose and throat: Unremarkable Pulmonary: No known history of asthma or pneumonia or shortness of breath Cardiac: No known history of KS or arrhythmia GI: Asymptomatic : Asymptomatic Past Medical History Medical History: no pertinent history Home Meds Active Scripts Sulfamethoxazole/Trimethoprim* (Bactrim Ds* Tablet) 1 Each Tablet, 1 TAB PO DAILY for 7 Days, #14 TAB Prov:SARAH BURNS 01/14/18 Ibuprofen* (Motrin*) 600 Mg Tab, 600 MG PO Q8 PRN for PAIN AND/OR INFLAMMATION, #30 TAB Prov:TALAT SANDRA MD 01/10/18 Reported Medications Hydroxyzine Hcl* (Atarax*) 25 Mg Tab, 25 MG PO Q8 PRN for ITCHING, TAB 01/10/18 Carvedilol* (Carvedilol*) 12.5 Mg Tablet, 18.75 MG PO BID, #60 TAB 01/10/18 Lisinopril* (Lisinopril*) 20 Mg Tablet, 20 MG PO DAILY, #30 TAB 01/10/18 Amiodarone Hcl* (Amiodarone Hcl*) 200 Mg Tablet, 200 MG PO DAILY, #30 TAB 01/10/18 Medications Current Medications IV Flush (NS 3 ml) 3 ml PER PROTOCOL IV ; Start 05/20/18 at 07:00 Acetaminophen (Tylenol Tab) 650 mg Q6H PRN PO .PAIN 1-3 OR TEMP Last administered on 05/20/18at 06:58; Admin Dose 650 MG; Start 05/20/18 at 07:00 Acetaminophen/ Hydrocodone Bitart ([place] (5/325)) 1 tab Q6H PRN PO .MOD PAIN 4- 6; Start 05/20/18 at 07:00 Morphine Sulfate (morphine) 2 mg Q4H PRN IV .SEVERE PAIN 7-10; Start 05/20/18 at 07:00 Docusate Sodium (Colace) 100 mg Q12H PRN PO .CONSTIPATION; Start 05/20/18 at 07:00 Bisacodyl (Dulcolax) 5 mg DAILY PRN PO .CONSTIPATION; Start 05/20/18 at 07:00 Piperacillin Sod/ Tazobactam Sod 50 ml @ 100 mls/hr Q12 IVPB Last administered on 05/20/18at 10:13; Admin Dose 100 MLS/HR; Start 05/20/18 at 09:00 Vancomycin HCl (Vanco Iv Per Pharmacy) VANCOMYCIN PER PHARMACY PER PROTOCOL XX ; Start 05/20/18 at 07:00 Levalbuterol (Xopenex Neb) 1.25 mg Q4H RESP THERAPY PRN HHN SHORTNESS OF BREATH; Start 05/20/18 at 07:00 Amiodarone HCl (Cordarone) 200 mg DAILY PO ; Start 05/20/18 at 09:00 Carvedilol (Coreg) 18.75 mg BID PO ; Start 05/20/18 at 09:00 Allergies: Coded Allergies: No Known Allergy (Unverified , 03/27/16) Past Surgical History Past Surgical Hx: other Family History Significant Family History: no pertinent family hx Social History Alcohol Use: rarely Smoking Status: Never smoker Drug Use: marijuana Exam/Review of Systems Exam Vitals Vital Signs Date Temp Pulse Resp B/P (MAP) Pulse Ox O2 O2 Flow FiO2 Time Delivery Rate 05/20/18 98.9 81 20 93/59 (70) 100 Nasal 2.0 11:30 Cannula Constitutional: alert, oriented Psych: no complaints Head: normocephalic Eyes: nl conjunctiva ENMT: nl external ears & nose Neck: supple Respiratory: clear to auscultation Cardiovascular: regular rate and rhythm Gastrointestinal: soft Genitourinary - Male: other (Left perianal cellulitis, erythema and induration) Extremities: normal pulses Neurological: [employer] CO[employer]IN[employer] II-XII intact Results Result Diagram: 05/20/18 0424 05/20/18 1125 Results 24hrs Laboratory Tests Test 05/20/18 03:55 05/20/18 04:17 05/20/18 04:19 05/20/18 04:24 Urine Random 17 L Sodium POC Venous 1.9 Lactate Prothrombin Time 14.6 Prothrombin Time 1.1 Ratio INR International 1.13 Normalized Ratio Activated 31.5 Partial Thrombopl ast Time Troponin I 0.013 White Blood Count 14.2 #H Red Blood Count 4.67 L Hemoglobin 14.9 Hematocrit 45.0 Mean Corpuscular 96.4 Volume Mean Corpuscular 31.9 Hemoglobin Mean Corpuscular 33.1 Hemoglobin Concen t Red Cell 12.5 Distribution Width Platelet Count 254 Mean Platelet 9.7 Volume Immature 0.600 H Granulocytes % Neutrophils % 80.9 H Lymphocytes % 8.1 L Monocytes % 9.9 Eosinophils % 0.1 Basophils % 0.4 Nucleated Red 0.0 Blood Cells % Immature 0.090 H Granulocytes # Neutrophils # 11.5 H Lymphocytes # 1.2 Monocytes # 1.4 H Eosinophils # 0.0 Basophils # 0.1 Nucleated Red 0.0 Blood Cells # Sodium Level 141 Potassium Level 4.5 Chloride Level 102 Carbon Dioxide 24 Level Anion Gap 15 H Blood Urea 39 H Nitrogen Creatinine 2.51 H Est Glomerular 27 L Filtrat Rate mL/min Glucose Level 95 Calcium Level 9.2 Total Bilirubin 2.2 H Direct Bilirubin 0.00 Indirect 2.2 H Bilirubin Aspartate Amino 32 Transf (AST/SGOT) Alanine 31 Aminotransferase (ALT/SGPT) Alkaline 71 Phosphatase Total Protein 7.0 Albumin 3.8 Globulin 3.20 Albumin/Globulin 1.18 Ratio Lipase 68 Test 05/20/18 04:56 05/20/18 08:25 05/20/18 09:29 05/20/18 11:25 Urine Color SOURAV Urine Clarity SLIGHTLY CLOUDY A Urine pH 5.0 Urine Specific 1.017 [place] Urine Ketones NEGATIVE Urine Nitrite NEGATIVE Urine Bilirubin NEGATIVE Urine 2+ H Urobilinogen Urine Leukocyte NEGATIVE Esterase Urine Microscopic 2 RBC Urine Microscopic 3 WBC Urine Mucus FEW A Urine Hemoglobin NEGATIVE Urine Glucose NEGATIVE Urine Total 1+ H Protein Lactic Acid Level 2.2 *H Lab Scanned LAB Report Sodium Level 140 Potassium Level 4.3 Chloride Level 110 Carbon Dioxide 19 L Level Anion Gap 11 Blood Urea 41 H Nitrogen Creatinine 2.96 H Est Glomerular 22 L Filtrat Rate mL/min Glucose Level 81 Calcium Level 7.9 L Test 05/20/18 11:26 POC Venous 1.4 Lactate Medications Medication Current Medications IV Flush (NS 3 ml) 3 ml PER PROTOCOL IV ; Start 05/20/18 at 07:00 Acetaminophen (Tylenol Tab) 650 mg Q6H PRN PO .PAIN 1-3 OR TEMP Last admin istered on 05/20/18at 06:58; Admin Dose 650 MG; Start 05/20/18 at 07:00 Acetaminophen/ Hydrocodone Bitart ([place] (5/325)) 1 tab Q6H PRN PO .MOD PAIN 4- 6; Start 05/20/18 at 07:00 Morphine Sulfate (morphine) 2 mg Q4H PRN IV .SEVERE PAIN 7-10; Start 05/20/18 at 07:00 Docusate Sodium (Colace) 100 mg Q12H PRN PO .CONSTIPATION; Start 05/20/18 at 07:00 Bisacodyl (Dulcolax) 5 mg DAILY PRN PO .CONSTIPATION; Start 05/20/18 at 07:00 Piperacillin Sod/ Tazobactam Sod 50 ml @ 100 mls/hr Q12 IVPB Last administered on 05/20/18at 10:13; Admin Dose 100 MLS/HR; Start 05/20/18 at 09:00 Vancomycin HCl (Vanco Iv Per Pharmacy) VANCOMYCIN PER PHARMACY PER PROTOCOL XX ; Start 05/20/18 at 07:00 Levalbuterol (Xopenex Neb) 1.25 mg Q4H RESP THERAPY PRN HHN SHORTNESS OF BREATH; Start 05/20/18 at 07:00 Amiodarone HCl (Cordarone) 200 mg DAILY PO ; Start 05/20/18 at 09:00 Carvedilol (Coreg) 18.75 mg BID PO ; Start 05/20/18 at 09:00 GYA SENIOR MD May 20, 2018 12:11
[2018-05-20] MEDS ORDERED: FENTAnyl 50 MCG/ML VIAL ONE (12:21)
[2018-05-20] MEDS ORDERED: MIDAZOLAM 1 MG/ML 2 ML INJ ONE ×2 (12:21→12:45)
[2018-05-20] MEDS ORDERED: ONDANSETRON 4 MG INJ ONE (12:47)
[2018-05-20] MEDS ORDERED: METOCLOPRAMIDE 10 MG INJ ONE (12:47)
[2018-05-20] MEDS ORDERED: KETOROLAC 30 MG INJ ONE (12:47)
[2018-05-20] MEDS ORDERED: DEXAMETHASONE 4 MG/ML 5 ML INJ ONE (12:47)
[2018-05-20] MEDS ORDERED: PHENYLephrine (100 MCG/ML) 5ML SYG ONE (12:49)
--- NOTE | 2018-05-20 12:54 | OPR ---
Date/Time of Note Date/Time of Note DATE: 05/20/18 TIME: 12:50 Operative Report Procedure Date: May 20, 2018 Preoperative Diagnosis Left perianal abscess Postoperative Diagnosis Left perianal abscess (250 cc) Operation/Procedure Performed Incision and drainage of left perianal abscess Surgeon Geraldo Senior MD Lining Strap Closer None Anesthesia Type: spinal Anesthesiologist: REYNALDO STEPHENSON MD Estimated Blood Loss: minimal Transfusion none Specimen Culture and sensitivities Grafts/Implants none Tubes/Drains 2 inch gauze packing Complications none Pt Condition Post Procedure: stable Disposition: PACU Indications Sepsis Procedure Description After satisfactory spinal anesthesia was achieved, the patient was placed in Elliott stirrups and the perineum prepped and draped. A 3 cm transverse skin incision was made at 3:00 in the left perianal area with immediate gush of foul- smelling pus. A total of 250 cc was captured. The pus was submitted for aerobic and anaerobic cultures. The wound was irrigated with sterile water and packed with 2 inch gauze. Sponge and needle counts were reported as correct x2. GERALDO SENIOR MD May 20, 2018 12:54
[2018-05-20] MEDS ORDERED: OXYCODONE/ACETAMINOPHEN (5/325) TAB PO PRN ×2 (13:00)
[2018-05-20] MEDS ORDERED: morphine 2 MG INJ IV PRN (13:00)
[2018-05-20] MEDS ORDERED: ONDANSETRON 4 MG INJ IV PRN (13:00)
--- NOTE | 2018-05-20 13:17 | PAC ---
Date/Time of Note Date/Time of Note DATE: 05/20/18 TIME: 13:16 Post-Anesthesia Notes Post-Anesthesia Note Last documented vital signs Vital Signs Date Temp Pulse Resp B/P (MAP) Pulse Ox O2 O2 Flow FiO2 Time Delivery Rate 05/20/18 98.9 81 20 93/59 (70) 100 Nasal 2.0 13:30 Cannula Activity: WNL Respiratory function: WNL Cardiovascular function: WNL Mental status: Baseline Pain reasonably controlled: Yes Hydration appropriate: Yes Nausea/Vomiting absent: Yes REYNALDO STEPHENSON MD May 20, 2018 13:17
--- NOTE | 2018-05-20 14:06 | CONS ---
DATE OF ADMISSION: 05/20/2018 DATE OF CONSULTATION: 05/20/2018 TYPE OF CONSULTATION: Nephrology. REASON FOR CONSULTATION: Acute kidney injury. PHYSICIAN REQUESTING CONSULT: Dr. Heart. HISTORY OF PRESENT ILLNESS: This is a 52-year-old male with a past medical history of chronic kidney disease with previous baseline creatinine around 1.8 TO 2.0 mg/dL, a history of hypertension, histor y of obstructive sleep apnea who presents to [facility] with complaints of left but tock pain. The patient states that he has been having ongoing pain for the last several days with al ternating fevers and chills. The patient also describes pain upon defecation and as a result came to the Emergency Room. Upon arrival, the patient had ultrasound that showed evidence of a fluid collec tion and an abscess in left gluteal region. The patient was started on IV antibiotics. In terms of patient's renal history, the patient has underlying chronic kidney disease with previous creatinines ranging from 1.5 to 2.0 mg/dL. On admission, the patient had a creatinine of 2.51 mg/dL. The patient during this time has been hypotensive with poor p.o. intake. There have been no reports of any hemoptysis, hematemesis or hematochezia. PAST MEDICAL HISTORY: As stated above, history of chronic kidney disease stage IIIB, history of hype rtension, history of sleep apnea. PAST SURGICAL HISTORY: Scrotal abscess drainage, cataract surgery. FAMILY HISTORY: Positive family history of diabetes. SOCIAL HISTORY: Does not drink, smoke or do drugs. MEDICATIONS: The patient's medications have been reviewed. REVIEW OF SYSTEMS: A 14-point review of systems conducted. Pertinent positives stated in HPI, other biggs negative. PHYSICAL EXAMINATION: VITAL SIGNS: Blood pressure is 93/59, respiratory rate 20, pulse 81, temperature 98.9. HEENT: Head is normocephalic. NECK: Supple. HEART: Regular rate. LUNGS: Showed diminished breath sounds at base. ABDOMEN: Soft, nontender to palpation without rebound or guarding. EXTREMITIES: Negative for clubbing, cyanosis, no edema. DERMATOLOGIC: No rashes. MUSCULOSKELETAL: No joint effusions. NEUROLOGIC: No focal deficits. The patient's medications have been reviewed. LABORATORY DATA: Shows sodium 140, potassium 4.3, chloride 19, BUN 41, creatinine 2.97, lactic acid 2.2, white count 14.2, hemoglobin 14.9, platelet count 254. ASSESSMENT AND PLAN: This is a 52-year-old male with: 1. Nonoliguric acute kidney injury on chronic kidney disease stage IIIB/IV with previous baseline cr eatinine of 1.5 to 2 mg/dL. Etiology of acute kidney injury is likely secondary to sepsis, hemodynam ics. The patient's initial urinalysis shows a phenol less than 1%, no active sediment. Recommendati on at this point is to continue the patient on IV hydration. Continue IV antibiotics. Would maintai n a MAP above 65 and if necessary, consider pressor support. Will check a renal ultrasound to evalua te renal parenchyma and rule out obstruction. Will otherwise, continue current treatment plan, supp ortive care, renally dose all meds. 2. Metabolic acidosis secondary to lactic acidosis, acute kidney injury. Etiology is secondary to s epsis. Continue current treatment plan as stated above. No need for bicarbonate therapy. 3. Anemia. Continue to monitor hemoglobin and hematocrit levels. 4. History of anemia. The patient's hemoglobin levels are within normal limits. Continue to monito r. 5. Mineral bone disorder, monitor calcium and phosphorus levels. 6. Severe sepsis secondary to left buttock abscess. Continue current medical management. Continue antibiotic therapy, continue IV fluids. We will follow up with general surgery. 7. History of hypertension. The patient is now hypotensive. We will hold blood pressure medicines. 8. History of sleep apnea. Thank you, Dr. Heart, for this interesting consult. It will be a pleasure to follow patient with y nicole throughout the hospital course. Dictated By: HECTOR RODRIGUEZ/NTS Conf#: [id number] DID#: [id number] CC: NEENA HEART MD;*EndCC*
[2018-05-20] MEDS ORDERED: ALBUMIN HUMAN 5% 250 ML IV ONE (14:30)
--- NOTE | 2018-05-20 18:32 | RADRPT ---
Echocardiogram Report Patient Name: ARSENIO CREWSPatient ID: [id number] : 1965 (52y 11m)Study Date: 05/20/2018 1:24:44 PM Gender: MAccession #: [id number] Tech: Mark Larry [facility] Location: Pac[facility] Ref.Physician: REYNALDO STEPHENSON Height(Cm): BSA: Weight(Kg): Quality: AdequateAccount #: Procedures: Echocardiographic Report: Transthoracic echocardiogram with complete 2D, M-Mode, and doppler examination. Indications: Preop, Hx of CHF, sleep apnea, going for emergency absscess drainage. Measurements: 2D/M Mode Doppler Measurement Value Normal Range Measurement Value Normal Range LVIDd 2D 4.9 [ 4.2 - 5.8 ] cm AV Peak Jet 1.4 [ 100.0 - 170.0 ] cm/sec LVIDs 2D 3.7 [ 2.5 - 4.0 ] cm AV Peak PG 8.0 [ 2.0 - 9.0 ] mmHg LVPWd 2D 1.3 [ 0.6 - 1.0 ] cm LVOT Peak Jet 1.0 [ 70.0 - 110.0 ] cm/sec IVSd 2D 1.3 [ 0.6 - 1.0 ] cm LVOT Peak PG 4.0 [ 2.0 - 6.0 ] mmHg AoR Diam 2D 2.8 [ 2.6 - 3.4 ] cm MV E Peak Jet 1.1 [ 60.0 - 130.0 ] cm/sec EDV 2D 113.0 [ 62.0 - 150.0 ] ml MV A Peak Jet 0.2 [ 100.0 - 120.0 ] cm/sec ESV 2D 57.4 [ 21.0 - 61.0 ] ml MV E/A 4.9 [ 0.8 - 1.5 ] ratio EF 2D 49.2 [ 52.0 - 72.0 ] percent MV Decel Time 268 [ 104 - 258 ] msec LA Dimen 2D 4.0 [ 3.0 - 4.0 ] cm Lat E` Jet 0.1 [ 10.0 - 15.0 ] cm/sec Lateral E/E` 13.9 [ 1.0 - 2.0 ] ratio Med E` Jet 0.1 cm/sec MV E/A 4.9 [ 0.8 - 1.5 ] ratio TR Peak Jet 2.2 [ 100.0 - 280.0 ] cm/sec TR Peak PG 20.0 mmHg RVSP 23.0 [ 10.0 - 36.0 ] mmHg Findings: Left Ventricle: Normal left ventricular cavity size. Mild concentric left ventricular hypertrophy. Mild global left ventricular systolic dysfunction. Ejection fraction is visually estimated at 40-45 %. Tissue Doppler/Mitral Doppler indices are consistent with impaired relaxation (Stage I diastolic dysfunction). Right Ventricle: Normal right ventricular size. Normal right ventricular systolic function. Left Atrium: The left atrium is normal in size. Right Atrium: There is mild enlargement of right atrium. Mitral Valve: Mild mitral annular calcification. Trace mitral regurgitation. The regurgitation jet is eccentrically directed which may underestimate the severity of mitral regurgitation. Aortic Valve: No significant aortic stenosis or insufficiency. Aortic cusps appear mildly calcified. Tricuspid Valve: Normal appearance of the tricuspid valve. Estimated peak PA systolic pressure 23 mmHg. There is trace tricuspid regurgitation. Pulmonic Valve: Pulmonic valve not well visualized. Pericardium: Normal pericardium with no significant pericardial effusion. Small pericardial effusion. Aorta: Normal aortic root. IVC: Normal size and normal respiratory collapse consistent with normal right atrial pressure. Conclusions: Normal left ventricular cavity size. Mild concentric left ventricular hypertrophy. Mild global left ventricular systolic dysfunction. Ejection fraction is visually estimated at 40-45 %. Tissue Doppler/Mitral Doppler indices are consistent with impaired relaxation (Stage I diastolic dysfunction). Mild mitral annular calcification. Trace mitral regurgitation. The regurgitation jet is eccentrically directed which may underestimate the severity of mitral regurgitation. Normal appearance of the tricuspid valve. Estimated peak PA systolic pressure 23 mmHg. There is trace tricuspid regurgitation. Electronically Signed By: Bandar Benitez 2018-05-20 18:31:56 PDT
[2018-05-20] MEDS ORDERED: VANCOMYCIN HCL 2 GM in SOD CHLORIDE 0.9% 500 ML IVPB SCH (19:00)
[2018-05-21] MEDS: PIPER-TAZO 2.25 GM (PMX) 50 ML IVPB SCH (03:02)
[2018-05-21 04:45] VITALS: BP 124/80; PULSE 74; RESP 18
[2018-05-21 07:48] VITALS: BP 117/69; PULSE 69; RESP 19
--- NOTE | 2018-05-21 08:31 | PN ---
DATE: 05/21/2018 SUBJECTIVE: The patient is stable. The patient had incision and drainage performed of his left glut eal abscess. No other events noted. OBJECTIVE: VITAL SIGNS: Blood pressure is 117/69, respirations 19, pulse 69, temperature 97.6. HEENT: Head is normocephalic. NECK: Supple. HEART: Regular rate. LUNGS: Show diminished breath sounds at the base. ABDOMEN: Soft, nontender to palpation without rebound or guarding. EXTREMITIES: Negative for clubbing, cyanosis, no edema. DERMATOLOGIC: No rashes. MUSCULOSKELETAL: No joint effusion. NEUROLOGIC: No change in exam. MEDICATIONS: Reviewed. LABORATORY DATA: Shows white count 14.4, hemoglobin 12.2, platelet count is 197. Sodium 142, potass ium 4.8, BUN 38, creatinine 2.25. Urinalysis was reviewed. IMAGING STUDY: Renal ultrasound was reviewed. Suboptimal study. ASSESSMENT AND PLAN: 1. Nonoliguric acute kidney injury on top of chronic kidney disease stage IIIB/IV with previous base line creatinine of 1.5 to 10 mg/dL. Etiology of acute kidney injury is secondary to sepsis, hemodyna mics. The patient's renal function has been improving with IV hydration and supportive care. At thi s point, continue current treatment plan. Continue renally dose all medicines, and avoid nephrotoxin s. 2. Metabolic acidosis, etiology is secondary to acute kidney injury, lactic acidosis. The patient's bicarbonate levels have been improving. Continue to monitor. 3. Anemia. Continue to monitor hemoglobin and hematocrit levels. 4. Mineral bone disorder, monitor calcium and phosphorus levels. 5. Sepsis secondary to left buttock abscess. The patient is status post incision and drainage. Con tinue current antibiotic regimen. Continue wound care, continue IV fluids. 6. History of hypertension. Continue to monitor. 7. History of sleep apnea. Dictated By: HECTOR MAI DO NR/NTS Conf#: [id number] DID#: [id number] CC: HECTOR MAI DO; NEENA HEART MD;*EndCC*
[2018-05-21] MEDS: AMIODARONE 200 MG TAB PO SCH (09:13)
[2018-05-21] MEDS: morphine 2 MG INJ IV PRN (10:10)
--- NOTE | 2018-05-21 10:14 | QN ---
Documentation Comment Postoperative day #1 Afebrile throughout Markedly symptomatically improved Packing removed and replaced with dry dressing Plan: Cleared for discharge home today with po antibiotics GAY SENIOR MD May 21, 2018 10:14
--- NOTE | 2018-05-21 14:20 | PN ---
Date/Time of Note Date/Time of Note DATE: 05/21/18 TIME: 14:18 Assessment/Plan VTE Prophylaxis Risk score (from Ns)>0 risk: 5 SCD applied (from Ns): Yes SCD contraindicated: low risk/ambulating Pharmacological prophylaxis: LMWH Lines/Catheters IV Catheter Type (from Nrs): Saline Lock Urinary Cath still in place: Yes Reason Cath still needed: urinary retention, pres ulcer contaminated by urine Assessment/Plan Hospital Course Assessment and plan 1. Left buttock abscess status post I&D, stable follow-up on cultures 2. Morbid obesity, needs to lose weight 3. CKD? Baseline 1.6 4. GAVINO continue BiPAP CPAP 5. Arterial hypertension Subjective: Events noted feels better Objective: Vital signs stable Physical exam No pallor Regular Clear Bs dimin nontender nondistended overweight No edema Result Diagram: 05/21/182 05/21/18 0432 Results 24hrs Laboratory Tests Test 05/21/18 04:32 White Blood Count 14.4 H Red Blood Count 3.79 L Hemoglobin 12.2 L Hematocrit 37.3 L Mean Corpuscular Volume 98.4 Mean Corpuscular Hemoglobin 32.2 Mean Corpuscular Hemoglobin Concent 32.7 Red Cell Distribution Width 12.8 Platelet Count 197 # Mean Platelet Volume 10.2 Immature Granulocytes % 1.400 H Neutrophils % 88.4 H Lymphocytes % 3.7 L Monocytes % 6.2 Eosinophils % 0.0 Basophils % 0.3 Nucleated Red Blood Cells % 0.0 Immature Granulocytes # 0.200 H Neutrophils # 12.8 H Lymphocytes # 0.5 L Monocytes # 0.9 Eosinophils # 0.0 Basophils # 0.0 Nucleated Red Blood Cells # 0.0 Sodium Level 142 Potassium Level 4.8 Chloride Level 110 Carbon Dioxide Level 22 Anion Gap 10 Blood Urea Nitrogen 38 H Creatinine 2.25 H Est Glomerular Filtrat Rate mL/min 31 L Glucose Level 204 # Hemoglobin A1c 5.0 Calcium Level 8.1 L Phosphorus Level 3.8 Magnesium Level 2.1 Total Bilirubin 0.7 Direct Bilirubin 0.00 Indirect Bilirubin 0.7 Aspartate Amino Transf (AST/SGOT) 75 #H Alanine Aminotransferase (ALT/SGPT) 34 Alkaline Phosphatase 68 Total Protein 6.5 Albumin 3.2 L Globulin 3.30 H Albumin/Globulin Ratio 0.96 Triglycerides Level 66 Cholesterol Level 140 LDL Cholesterol, Calculated 99 HDL Cholesterol 28 Cholesterol/HDL Ratio 5.0 Thyroid Stimulating Hormone (TSH) 1.160 Exam/Review of Systems Exam Vitals Vital Signs Date Temp Pulse Resp B/P (MAP) Pulse Ox O2 O2 Flow FiO2 Time Delivery Rate 05/21/18 97.6 69 19 117/69 100 07:48 (85) 05/20/18 Nasal 2.0 16:30 Cannula Intake and Output 05/20/18 05/20/18 05/21/18 1515:00 23:00 07:00 IntakeIntake Total 700 ml 100 ml 1350 ml OutputOutput Total 20 ml 350 ml 1950 ml BalanceBalance 680 ml -250 ml -600 ml Results Results 24hrs Laboratory Tests Test 05/21/18 04:32 White Blood Count 14.4 H Red Blood Count 3.79 L Hemoglobin 12.2 L Hematocrit 37.3 L Mean Corpuscular Volume 98.4 Mean Corpuscular Hemoglobin 32.2 Mean Corpuscular Hemoglobin Concent 32.7 Red Cell Distribution Width 12.8 Platelet Count 197 # Mean Platelet Volume 10.2 Immature Granulocytes % 1.400 H Neutrophils % 88.4 H Lymphocytes % 3.7 L Monocytes % 6.2 Eosinophils % 0.0 Basophils % 0.3 Nucleated Red Blood Cells % 0.0 Immature Granulocytes # 0.200 H Neutrophils # 12.8 H Lymphocytes # 0.5 L Monocytes # 0.9 Eosinophils # 0.0 Basophils # 0.0 Nucleated Red Blood Cells # 0.0 Sodium Level 142 Potassium Level 4.8 Chloride Level 110 Carbon Dioxide Level 22 Anion Gap 10 Blood Urea Nitrogen 38 H Creatinine 2.25 H Est Glomerular Filtrat Rate mL/min 31 L Glucose Level 204 # Hemoglobin A1c 5.0 Calcium Level 8.1 L Phosphorus Level 3.8 Magnesium Level 2.1 Total Bilirubin 0.7 Direct Bilirubin 0.00 Indirect Bilirubin 0.7 Aspartate Amino Transf (AST/SGOT) 75 #H Alanine Aminotransferase (ALT/SGPT) 34 Alkaline Phosphatase 68 Total Protein 6.5 Albumin 3.2 L Globulin 3.30 H Albumin/Globulin Ratio 0.96 Triglycerides Level 66 Cholesterol Level 140 LDL Cholesterol, Calculated 99 HDL Cholesterol 28 Cholesterol/HDL Ratio 5.0 Thyroid Stimulating Hormone (TSH) 1.160 Medications Medication Current Medications IV Flush (NS 3 ml) 3 ml PER PROTOCOL IV ; Start 05/20/18 at 07:00 Acetaminophen (Tylenol Tab) 650 mg Q6H PRN PO .PAIN 1-3 OR TEMP Last administered on 05/20/18at 06:58; Admin Dose 650 MG; Start 05/20/18 at 07:00 Acetaminophen/ Hydrocodone Bitart ([place] (5/325)) 1 tab Q6H PRN PO .MOD PAIN 4- 6; Start 05/20/18 at 07:00 Morphine Sulfate (morphine) 2 mg Q4H PRN IV .SEVERE PAIN 7-10 Last administered on 05/21/18at 10:10; Admin Dose 2 MG; Start 05/20/18 at 07:00 Docusate Sodium (Colace) 100 mg Q12H PRN PO .CONSTIPATION; Start 05/20/18 at 07:00 Bisacodyl (Dulcolax) 5 mg DAILY PRN PO .CONSTIPATION; Start 05/20/18 at 07:00 Vancomycin HCl (Vanco Iv Per Pharmacy) VANCOMYCIN PER PHARMACY PER PROTOCOL XX ; Start 05/20/18 at 07:00 Levalbuterol (Xopenex Neb) 1.25 mg Q4H RESP THERAPY PRN HHN SHORTNESS OF BREATH; Start 05/20/18 at 07:00 Amiodarone HCl (Cordarone) 200 mg DAILY PO Last administered on 05/21/18at 09:13; Admin Dose 200 MG; Start 05/20/18 at 09:00 Carvedilol (Coreg) 18.75 mg BID PO Last administered on 05/21/18at 09:14; Admin Dose 18.75 MG; Start 05/20/18 at 09:00 Oxycodone/ Acetaminophen (Percocet (5/ 325)) 1 tab Q4H PRN PO .MILD PAIN (1-3); Start 05/20/18 at 13:00 Oxycodone/ Acetaminophen (Percocet (5/ 325)) 2 tab Q4H PRN PO .MODERATE PAIN (4-6); Start 05/20/18 at 13:00 Ondansetron HCl (Zofran Inj) 4 mg Q6H PRN IV NAUSEA/VOMITING; Start 05/20/18 at 13:00 Piperacillin Sod/ Tazobactam Sod 100 ml @ 200 mls/hr Q8 IVPB ; Start 05/21/18 at 14:00 Vancomycin HCl 1.75 gm/Sodium Chloride 500 ml @ 125 mls/hr Q24H IVPB ; Start 05/21/18 at 21:00 DANIEL SANTOS MD May 21, 2018 14:20
[2018-05-21] MEDS ORDERED: DOCUSATE SODIUM 100 MG CAP PO PRN (14:30)
[2018-05-21 14:37] VITALS: BP 121/72; PULSE 72; RESP 18
[2018-05-21] MEDS: PIPER-TAZO 3.375 GM IV (PMX) 100 ML IVPB SCH ×2 (16:14→22:39)
[2018-05-21] MEDS: HYDROCODONE/APAP (10/325) TAB PO PRN (19:49)
[2018-05-21 20:30] VITALS: BP 130/71; PULSE 18; PULSE 78; RESP 20
[2018-05-21] MEDS ORDERED: VANCOMYCIN HCL 1.75 GM in SOD CHLORIDE 0.9% 500 ML IVPB SCH (21:00)
[2018-05-22 02:38] VITALS: BP 125/72; PULSE 74; RESP 19
[2018-05-22] MEDS: PIPER-TAZO 3.375 GM IV (PMX) 100 ML IVPB SCH ×2 (07:15→14:11)
[2018-05-22 07:26] VITALS: BP 155/88; PULSE 73; RESP 18
--- NOTE | 2018-05-22 08:18 | PN ---
DATE: 05/22/2018 SUBJECTIVE: The patient is stable, no events overnight. The patient's pain is controlled. OBJECTIVE: VITAL SIGNS: Blood pressure is 155/88, pulse 73, respirations 18, temperature 97.8. HEENT: Head is normocephalic. NECK: Supple. HEART: Regular rate. LUNGS: Show diminished breath sounds at the base. ABDOMEN: Soft, nontender to palpation without rebound or guarding. EXTREMITIES: Negative for clubbing, cyanosis, no edema. DERMATOLOGIC: No rashes. MUSCULOSKELETAL: No joint effusion. NEUROLOGIC: No change in exam. MEDICATIONS: Reviewed. LABORATORY DATA: Shows sodium 142, potassium 5.0, BUN 38, creatinine 1.87. White count 6.8, hemoglo bin 10.8, platelet count is 245. ASSESSMENT AND PLAN: 1. Nonoliguric acute kidney injury on top of chronic kidney disease stage IIIB/IV with previous base line creatinine of 1.5 to 2.0 mg/dL. Etiology of acute kidney injury is secondary to hemodynamics. The patient's renal function has been improving. At this point, we would continue current treatment plan, supportive care, renally dose all medicines. 2. Metabolic acidosis secondary to acute kidney injury, improving. Continue to monitor. 3. Anemia. Continue to monitor hemoglobin and hematocrit levels. 4. Mineral bone disorder, monitor calcium and phosphorus levels. 5. Sepsis secondary to left buttock abscess. The patient is status post incision and drainage. Con tinue current antibiotic regimen. 6. Hypertension. Continue to monitor. 7. History of sleep apnea. Dictated By: HECTOR MAI DO NR/NTS Conf#: [id number] DID#: [id number] CC: HECTOR MAI DO; NEENA HEART MD; DANIEL SANTOS MD;*EndCC*
[2018-05-22] MEDS: AMIODARONE 200 MG TAB PO SCH (08:41)
[2018-05-22] MEDS: HYDROCODONE/APAP (10/325) TAB PO PRN ×2 (08:47→14:20)
[2018-05-22] MEDS ORDERED: ENOXAPARIN 30 MG/0.3 ML SYG SC SCH (09:00)
[2018-05-22] MEDS: morphine 2 MG INJ IV PRN ×2 (11:40→16:17)
[2018-05-22 13:28] VITALS: BP 126/82; PULSE 72; RESP 18
--- NOTE | 2018-05-22 15:02 | PDOCDIS ---
Discharge Instructions CONDITION [id number] Patient Condition: [id number] Good HOME CARE INSTRUCTIONS: [id number] Diet Instructions: [id number] Regular ACTIVITY: [id number] Activity Restrictions: [id number] Slowly Increase Activity Rest between Activity Avoid heavy lifting [id number] Bathing Restrictions: Dzqwx8g Shower [id number] Activity Restrictions [id number] change position every 2 hrs; Comment: stay hydrated; walk as much as possible DANIEL SANTOS MD May 22, 2018 15:02
[2018-05-22] MEDS ORDERED: CIPR500T4 PO (15:05)
[2018-05-22] MEDS ORDERED: ACET325T33 PO (15:05)
[2018-05-22] MEDS ORDERED: ACID1TAB14 PO (15:05)
[2018-05-22] MEDS ORDERED: HYDR-3609 PO (15:05)
[2018-05-22] MEDS ORDERED: METR-121 PO (15:05)
[2018-05-22] MEDS ORDERED: VANCOMYCIN HCL 1.75 GM in SOD CHLORIDE 0.9% 500 ML IVPB SCH (23:00)
== END 2018-05-22 21:25 | disposition home health service (06) | DRG 872 ==
LOC: FTE 23:14 → REC 05-20 04:24 → EDBEDREQSVC 05-20 06:56 → MS1 05-20 16:32
PROVIDERS: ADMIT Family Medicine; ATTEND Internal Medicine
PROC: 0D9Q0ZX Drainage of Anus, Open Approach, Diagnostic (ICD-10-PCS; principal; 2018-05-20 11:30)
DX: A41.9 Sepsis, unspecified organism (principal); L02.31 Cutaneous abscess of buttock; Z68.43 Body mass index [BMI] 50.0-59.9, adult; N17.9 Acute kidney failure, unspecified; E87.2 Acidosis; L03.317 Cellulitis of buttock; I13.0 Hypertensive heart and chronic kidney disease with heart failure and stage 1 through stage 4 chronic kidney disease, or unspecified chronic kidney disease; N18.4 Chronic kidney disease, stage 4 (severe); E66.01 Morbid (severe) obesity due to excess calories; I50.9 Heart failure, unspecified; R65.20 Severe sepsis without septic shock; G47.33 Obstructive sleep apnea (adult) (pediatric); B96.1 Klebsiella pneumoniae [K. pneumoniae] as the cause of diseases classified elsewhere; B96.20 Unspecified Escherichia coli [E. coli] as the cause of diseases classified elsewhere; B95.4 Other streptococcus as the cause of diseases classified elsewhere; F12.90 Cannabis use, unspecified, uncomplicated; Z71.3 Dietary counseling and surveillance
CPT/HCPCS: 36415; 71045; 76536; 76775; 80048; 80053; 80061; 81001; 81003; 82043; 83036; 83605; 83690; 83735; 84100; 84155; 84300; 84443; 84484; 85025; 85610; 85730; 87040; 87070; 87075; 87086; 93005; 93306; 94664; 96374; 96375; J0692; J1100; J1650; J1885; J1940; J2250; J2270; J2370; J2405; J2543; J2765; J3010; J3370; J7030; J7040; P9045